=== PATIENT | male | born 1960 | race Caucasian/White ===

== ENCOUNTER 2021-04-12 10:40 | Inpatient (IN) | payer SELFPAY ==
[~2021-04-12] VITALS: Ht 180.3 cm; Wt 81.4 kg
[~2021-04-12 10:40] MED LIST: APIX5TAB PO; ASPI-1238 PO; ATOR20TA66 PO; CLOP75TA69 PO; EMPA10TA PO; FURO20TA4 PO; IBUP-1779 PO; INSU100V SQ; LISI10TA25 PO; METF-397 PO; METO-333 PO; MOM10U PO; MOME13HF2 IH; MULT-1073 PO; OXYC1TAB16 PO; PANT40TA52 PO; POLY17PO6 PO; SENN-36 PO; SITA50TA PO
[2021-04-12] MEDS ORDERED: MELATONIN 3 MG TABLET PO PRN (10:45)
[2021-04-12] MEDS ORDERED: LACTULOSE SYRUP 10GM/15ML (ENULOSE) 30ML UDC PO PRN (10:45)
[2021-04-12] MEDS ORDERED: FLEET ENEMA ADULT 1 EA BTL PR PRN (10:45)
[2021-04-12] MEDS ORDERED: ONDANSETRON 4 MG (ZOFRAN) ORAL DISSOLVE TAB PO PRN (10:45)
[2021-04-12] MEDS ORDERED: ALPRAZolam 0.25 MG (XANAX) TAB PO PRN (10:45)
[2021-04-12] MEDS ORDERED: ACETAMINOPHEN 325 MG TABLET PO PRN (10:45)
[2021-04-12] MEDS ORDERED: CALCIUM CARBONATE 500 MG (TUMS) TAB.CHEW PO PRN (10:45)
[2021-04-12] MEDS ORDERED: diphenhydrAMINE 25 MG TAB (BENADRYL) PO PRN (10:45)
[2021-04-12] MEDS ORDERED: guaiFENesin/CODEINE (ROBITUSSIN AC) 10ML UDC PO PRN (10:45)
[2021-04-12] MEDS ORDERED: BISACODYL 10 MG SUPP (DULCOLAX) PR PRN (10:45)
[2021-04-12] MEDS ORDERED: LOPERAMIDE 2 MG (IMODIUM) TABLET PO PRN (10:45)
[2021-04-12] MEDS ORDERED: DOCUSATE SODIUM 100 MG (COLACE) CAP PO PRN (10:45)
--- NOTE | 2021-04-12 11:27 | Occupational Therapy Eval ---
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 Pt transferred to ARU 04/12/21 for continued medication management and skilled therapy. Social History Home: Single Level Current Living Status: Other Family (mother) Steps Into Home: 4 ADL-Prior Level of Function SCALE: Activities may be completed with or without assistive devices. 5-Hpomfvwwlr-mgiukci completes the activity by him/herself with no assistance from a helper. 5-Set-up or Clean-up Assistance-helper sets up or cleans up; patient completes activity. [place] assists only prior to or following the activity. 4-Supervision or Touching Assistance-helper provides verbal cues and/or touching/steadying and/or contact guard assistance as patient completes activity. Assistance may be provided throughout the activity or intermittently. 3-Partial/Moderate Assistance-helper does LESS THAN HALF the effort. [place] lifts, holds or supports trunk or limbs, but provides less than half the effort. 2-Substantial/Maximal Assistance-helper does MORE THAN HALF the effort. [place] lifts or holds trunk or limbs and provides more than half the effort. 3-Vrddzlnwq-dwzscz does ALL the effort. Patient does none of the effort to complete the activity. Or, the assistance of 2 or more helpers is required for the patient to complete the activity. If activity was not attempted, code reason: 7-Patient Refused. 9-Not Applicable-not attempted and the patient did not perform the activity before the current illness, exacerbation or injury. 10-Not Attempted due to Environmental Limitations-(lack of equipment, weather restraints, etc.). 88-Not Attempted due to Medical Conditions or Safety Concerns. ADL PLOF Comments Pt reports IND with ADLs and functional mobility, no AD/AE. Self Care: Independent Functional Cognition: Independent DME/Equipment: Tub/Shower OT Current Status Subjective Pt agreeable to OT evaluation and cotreat to follow. 8/10 pain reported in L stump Mental Status/Objective Patient Orientation: Person, Place, Time, Situation Current Hand Dominance: Right Upper Extremity ROM WFL, BUE shoulder flexion to approx 160 degrees Upper Extremity Coordination WFL Upper Extremity Sensation WFL, pt denies tingling/numbness at this time. Upper Extremity Strength WFL, grossly 5/5 ADL-Treatment Eating (QC): 6 (Per pt report) Oral Hygiene (QC): 7 Shower/Bathe Self (QC): 7 Upper Body Dressing (QC): 7 Lower Body Dressing (QC): 7 On/Off Footwear (QC): 1 (Total assist donning R gripper sock.) Toileting Hygiene (QC): 3 (Min A with hygiene for thoroughness.) Other Treatments OT evaluation complete. OT/PT cotreat due to skill of 2 clinicians required which a rehab nursing tech could not perform in order to coordinate UE/LEs, decrease fall risk, and due to pt's limitations in pain, activity tolerance, mobility/transfers, and balance. OT focused on UE placement, ADLs, and cues for sequencing and safety, PT focused on LE placement, gross overall movement, mobility/transfers. Pt completed functional mobility using FWW (w/c follow), bed mobility and w/c mobility around ARU common area, please refer to PT evaluation for QC scores associated with mobility/transfers. Pt requests to use bathroom, propelled w/c into bathroom, SPT to toilet using GBS. Pt completed toileting, then transferred back to w/c. Nurse present due to bleeding from stump, and to assess skin on buttocks. LIZARRAGA present to take over tx, all needs met. Education OT Patient Education: Correct positioning, Energy conservation, Exercise program, Modified ADL techniques, Progress toward Goal/Update tx plan, Purpose of tx/functional activities, Rehab process, Safety issues, Transfer techniques Teaching Recipient: Patient Teaching Methods: Discussion Response to Teaching: Verbalize Understanding OT Short Term Goals Short Term Goals Time Frame: Apr 25, 2021 Toileting hygiene: 4 Shower/bathe self: 5 Upper body dressin Lower body dressin OT Group Home Goals Group Home Goals Time Frame: May 04, 2021 Eating (QC): 6 Oral Hygiene (QC): 6 Toileting Hygiene (QC): 6 Shower/Bathe Self (QC): 6 Upper Body Dressing (QC): 6 Lower Body Dressing (QC): 6 On/Off Footwear (QC): 6 Additional Goals: 1-Demonstrate ADL Tasks, 2-Verbalize Understanding, 3- ImproveStrength/Deniz 1=Demonstrate adherence to instructed precautions during ADL tasks. 2=Patient will verbalize/demonstrate understanding of assistive devices/modifications for ADL. 3=Patient will improve strength/tolerance for activity to enable patient to perform ADL's. OT Education/Plan Problem List/Assessment Assessment: Decreased Activ Tolerance, Decreased UE Strength, Impaired Funct Balance, Impaired I ADL's, Impaired Self-Care Skills Discharge Recommendations Plan/Recommendations: Continue POC Equpiment Recommendations-D/C: Extended Bath Bench Treatment Plan/Plan of Care Patient would benefit from OT for education, treatment and training to promote independence in ADL's, mobility, safety and/or upper extremity function for ADL's. Plan of Care: ADL Retraining, Functional Mobility, Group Exercise/Act as Ind, UE Funct Exercise/Act Treatment Duration: May 04, 2021 Frequency: At least 5 of 7 days/Wk (IRF) Estimated Hrs Per Day: 1.5 hours per day Agreement: Yes Rehab Potential: Good Time/GCodes Start Time: 10:50 Stop Time: 11:15 Total Time Billed (hr/min): 25 Billed Treatment Time OT eval x10', cotreat x15' 1, EVM (10'), ADL (15') JOSH NEVAREZ OT Apr 12, 2021 11:27
--- NOTE | 2021-04-12 11:45 | Physical Therapy Evaluation ---
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 0-Ngkngiveeu-jufvgbg completes the activity by him/herself with no assistance from a helper. 5-Set-up or Clean-up Assistance-helper sets up or cleans up; patient completes activity. [place] assists only prior to or following the activity. 4-Supervision or Touching Assistance-helper provides verbal cues and/or touching/steadying and/or contact guard assistance as patient completes activity. Assistance may be provided throughout the activity or intermittently. 3-Partial/Moderate Assistance-helper does LESS THAN HALF the effort. [place] lifts, holds or supports trunk or limbs, but provides less than half the effort. 2-Substantial/Maximal Assistance-helper does MORE THAN HALF the effort. [place] lifts or holds trunk or limbs and provides more than half the effort. 0-Arubpgljj-bxylou does ALL the effort. Patient does none of the effort to complete the activity. Or, the assistance of 2 or more helpers is required for the patient to complete the activity. If activity was not attempted, code reason: 7-Patient Refused. 9-Not Applicable-not attempted and the patient did not perform the activity before the current illness, exacerbation or injury. 10-Not Attempted due to Environmental Limitations-(lack of equipment, weather restraints, etc.). 88-Not Attempted due to Medical Conditions or Safety Concerns. Bed Mobility: 6 Transfers (B,C,W/C): 6 Gait: 6 Stairs: 6 Indoor Mobility (Ambulation): Independent Stairs: Independent PT Evaluation-Current Subjective Patient in WC pre tx, agrees to PT, has 8/10 pain in left residual limb. Will be co-treating with OT for part of tx due to poor patient mobility, strength, endurance, severe pain with activity, coordinate UE and LE with activity, safety and reduce risk of falls. Pt/Family Goals to be independent at home Objective Patient Orientation: Person, Place, Situation ROM/Strength ROM Lower Extremities WNL Strength Lower Extremities RLE (hip flexion 3/5, knee flexion 4/5, knee extension 4/5, dorsiflexion 4-/5) Integumentary/Posture Integumentary Patient has some bleeding from his residual limb and some sores on his bottom, nurse notified and she looked at it. Sensory Vision: Wears Glasses Hearing: Functional Hand Dominance: Right Sensation Right Lower Extremit: Intact Sensation Left Lower Extremity: Intact Transfers Roll Left & Right (QC): 6 Sit to Lying (QC): 4 Lying to Sitting/Side of Bed(Q: 4 Sit to Stand (QC): 3 Chair/Vqx-ea-Ylfvf Xfer(QC): 4 Toilet Transfer (QC): 4 Car Transfer (QC): 4 Patient performs rolling with independence, supine <-> sit SBA, sit <-> stand min assist, transfers CGA, car transfer CGA. Patient needs occasional cues for hand placement and safety. Gait Does the Patient Walk?: Yes Mode of Locomotion: Walk Anticipated Mode of Locomotion: Walk Walk 10 feet (QC): 4 Walk 50 ft with 2 Turns(QC): 88 Walk 150 ft (QC): 88 Walking 10ft/uneven surface-QC: 88 Distance: 10' Gait Assistive Device: FWW Comments/Gait Description Patient can ambulate 10' with CGA using a rolling walker. He doesn't have much foot clearance and is fairly unsteady so walking over an uneven surface and stairs were not safe to perform at this time. Wheelchair Training Does the Pt Use a Wheelchair?: Yes Distance: 150' Wheel 50 ft with 2 turns (QC): 4 Wheel 150 ft (QC): 4 Type of Wheelchair: Manual Stairs 1 Step (curb) (QC): 88 4 Steps (QC): 88 12 Steps (QC): 88 Balance Sitting Static: Normal Sitting Dynamic: Normal Standing Static: Fair Standing Dynamic: Poor Picking up an Object (QC): 4 Treatment PT performed bed mobility and transfers, ambulation, WC mobility training, standing and positioning and safety during shower. OT performed showering, dressing, ADL's, UE positioning and safety during activity. Assessment/Needs Patient in bed post tx, finishing up with OT. Patient has impaired mobility, strength, endurance. He is CGA for transfers but needs a little assist to stand. 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 Time Frame: May 03, 2021 Roll Left & Right (QC): 6 Sit to Lying (QC): 6 Lying-Sitting on Side/Bed(QC): 6 Sit to Stand (QC): 5 Chair/Bcb-bh-[place] Xfer(QC): 5 Toilet Transfer (QC): 5 Car Transfer (QC): 5 Does the Patient Walk: Yes Walk 10 feet (QC): 5 Walk 50ft with 2 Turns (QC): 5 Walk 150 ft (QC): 88 Walking 10ft on Uneven Surface: 4 1 Step (curb) (QC): 4 4 Steps (QC): 4 12 Steps (QC): 88 Picking up an Object (QC): 5 Wheel 50 feet with 2 turns (QC: 6 Wheel 150 feet: 6 PT Plan Problem List Problem List: Activity Tolerance, Functional Strength, Safety, Balance, Gait, Transfer, Bed Mobility, ROM Treatment/Plan Treatment Plan: Continue Plan of Care Treatment Plan: Bed Mobility, Education, Functional Activity Deniz, Functional Strength, Group Therapy, Gait, Safety, Therapeutic Exercise, Transfers Treatment Duration: May 03, 2021 Frequency: At least 5 of 7 days/Wk (IRF) Estimated Hrs Per Day: 1.5 hours per day Patient and/or Family Agrees t: Yes Safety Risks/Education Patient Education: Gait Training, Transfer Techniques, Correct Positioning, W/C Management, Safety Issues Teaching Recipient: Patient Teaching Methods: Demonstration, Discussion Response to Teaching: Reinforcement Needed Discharge Recommendations Plan Patient will perform bed mobility and transfer training, balance and endurance training, functional strengthening, stair training, gait training, and educ ation, to improve functional mobility and independence at home. Therapy Discharge Recommendati: Scheduled Assistance, Home & Family, Post Acute PT Time/GCodes Time In: 1040 Time Out: 1150 Total Billed Treatment Time: 60 Total Billed Treatment 1 visit EVM 10' FA 50' PT eval from [id number], OT eval from [id number], co-treat from [id number] ROSEMARY CABA PT Apr 12, 2021 11:45
--- NOTE | 2021-04-12 12:21 | PM&R Progress Note ---
Subjective HPI/CC On Admission Date Seen by Provider: Apr 12, 2021 Objective Exam Vital Signs Vital Signs Date Time Temp Pulse Resp B/P (MAP) Pulse Ox O2 Delivery O2 Flow Rate FiO2 04/12/21 15:45 Room Air Capillary Refill : Results/Procedures Lab Patient resulted labs reviewed. FIM Transfers Therapy Code Descriptions/Definitions Functional [place] Measure: 0=Not Assessed/NA 4=Minimal Assistance 1=Total Assistance 5=Supervision or Setup 2=Maximal Assistance 6=Modified [place] 3=Moderate Assistance 7=Complete IndependenceSCALE: Activities may be completed with or without assistive devices. 0-Tcljsmrxgx-vggrbla completes the activity by him/herself with no assistance from a helper. 5-Set-up or Clean-up Assistance-helper sets up or cleans up; patient completes activity. [place] assists only prior to or following the activity. 4-Supervision or Touching Assistance-helper provides verbal cues and/or touching/steadying and/or contact guard assistance as patient completes activity. Assistance may be provided throughout the activity or intermittently. 3-Partial/Moderate Assistance-helper does LESS THAN HALF the effort. [place] lifts, holds or supports trunk or limbs, but provides less than half the effort. 2-Substantial/Maximal Assistance-helper does MORE THAN HALF the effort. [place] lifts or holds trunk or limbs and provides more than half the effort. 2-Yzxhdkpca-pqwsey does ALL the effort. Patient does none of the effort to complete the activity. Or, the assistance of 2 or more helpers is required for the patient to complete the activity. If activity was not attempted, code reason: 7-Patient Refused. 9-Not Applicable-not attempted and the patient did not perform the activity before the current illness, exacerbation or injury. 10-Not Attempted due to Environmental Limitations-(lack of equipment, weather restraints, etc.). 88-Not Attempted due to Medical Conditions or Safety Concerns. Roll Left to Right (QC): 6 Sit to Lying (QC): 4 Sit to Stand (QC): 3 Chair/Kre-ez-Fniqm Xfer(QC): 4 Car Transfer (QC): 4 Gait Training Does the Patient Walk?: Yes Walk 10 feet (QC): 4 Walk 50 ft with 2 Turns(QC): 88 Walk 150 ft (QC): 88 Walking 10ft/uneven surface-QC: 88 Gait Assistive Device: FWW Wheelchair Training Does the Pt Use a Wheelchair?: Yes Distance: 150' Wheel 50 ft with 2 turns (QC): 4 Wheel 150 ft (QC): 4 Type of Wheelchair: Manual Stair Training 1 Step (curb) (QC): 88 4 Steps (QC): 88 12 Steps (QC): 88 Balance Picking up an Object (QC): 4 ADL-Treatment Eating (QC): 6 (Per pt report) Oral Hygiene (QC): 7 Shower/Bathe Self (QC): 7 Upper Body Dressing (QC): 7 Lower Body Dressing (QC): 7 On/Off Footwear (QC): 1 (Total assist donning R gripper sock.) Toileting Hygiene (QC): 3 (Min A with hygiene for thoroughness.) CHRISTOPHE HERNANDEZ DO Apr 12, 2021 12:21
[2021-04-12] MEDS ORDERED: polyethylene glycoL POWDER 17 GM (MIRALAX) PACK PO PRN (12:30)
--- NOTE | 2021-04-12 13:10 | Occupational Ther Daily Note ---
OT Current Status-Daily Note Subjective Pt alert, sitting in w/c. Took over care from OTR/L. No c/o pain. Agrees to therapy. Mental Status/Objective Patient Orientation: Person, Place, Time, Situation Attachments: IV ADL-Treatment 1st session ([id number]): Co-treat with PT ([id number]), skills of 2 clinicians required for skilled instruction to decrease fall risk and increase safety during functional tasks. PT focusing on transfers while OT focusing on ADLs. Pt agrees to shower. Pt is min A to CGA for all transfers. Sitting on shower bench, pt able to complete shower using grabbars and hand held shower with min A, only assist given was to cleanse buttocks while leaning toward R side on shower bench. Pt demonstrated ability to don/doff upper body clothing by self after set up. Pt able to doff L sock by self, assist to don L sock. Pt able to complete oral care independently while sitting. Pt then transferred to w/c from shower then to bed with CGA. Therapy Code Descriptions/Definitions Functional [place] Measure: 0=Not Assessed/NA 4=Minimal Assistance 1=Total Assistance 5=Supervision or Setup 2=Maximal Assistance 6=Modified [place] 3=Moderate Assistance 7=Complete IndependenceSCALE: Activities may be completed with or without assistive devices. 2-Oamipshyee-jqvtjii completes the activity by him/herself with no assistance from a helper. 5-Set-up or Clean-up Assistance-helper sets up or cleans up; patient completes activity. [place] assists only prior to or following the activity. 4-Supervision or Touching Assistance-helper provides verbal cues and/or touching/steadying and/or contact guard assistance as patient completes activity. Assistance may be provided throughout the activity or intermittently. 3-Partial/Moderate Assistance-helper does LESS THAN HALF the effort. [place] li fts, holds or supports trunk or limbs, but provides less than half the effort. 2-Substantial/Maximal Assistance-helper does MORE THAN HALF the effort. [place] lifts or holds trunk or limbs and provides more than half the effort. 0-Hmfbwacae-pupkst does ALL the effort. Patient does none of the effort to complete the activity. Or, the assistance of 2 or more helpers is required for the patient to complete the activity. If activity was not attempted, code reason: 7-Patient Refused. 9-Not Applicable-not attempted and the patient did not perform the activity before the current illness, exacerbation or injury. 10-Not Attempted due to Environmental Limitations-(lack of equipment, weather restraints, etc.). 88-Not Attempted due to Medical Conditions or Safety Concerns. Eating (QC): 6 Oral Hygiene (QC): 6 Bathing Location: L Arm, R Arm, L Lower Leg (including foot), R Lower Leg (including foot) (AKA), Chest, Abdomen, Perineal Area Shower/Bathe Self (QC): 3 Upper Body Dressing (QC): 5 On/Off Footwear: 3 (mod A) Other Treatment 1st session([id number]): Pt given medium resistance theraband and HEP for use in room to increase B UE strength. Skilled instruction given for correct technique. 3 B UE exercises completed 1 set 10 reps due to pt's increased fatigue. After session, pt lying in bed with call light/phone in reach. All needs met in room. 2nd session([id number]): Pt independent with eating. Pt given education on donning sock with sock aide. Pt able to demonstrate understanding of task though will need further attempts to become proficient. Assist given to don MARGARETTE hose to decrease edema in L foot. Pt then requested to transfer from bed to recliner. Waffle cushion placed in recliner due to wound on buttocks, nrsg aware. Pt able to complete transfer with min A. After session, pt sitting in recliner with call light/phone in reach. All needs met in room. Education OT Patient Education: Exercise program, Modified ADL techniques, Use of adapted equipment Teaching Recipient: Patient Teaching Methods: Demonstration, Discussion Response to Teaching: Verbalize Understanding, Return Demonstration, Reinforcement Needed OT Short Term Goals Short Term Goals Time Frame: Apr 25, 2021 Toileting hygiene: 4 Shower/bathe self: 5 Upper body dressin Lower body dressin OT Physical Medicine Physician Goals Physical Medicine Physician Goals Time Frame: May 04, 2021 Eating (QC): 6 Oral Hygiene (QC): 6 Toileting Hygiene (QC): 6 Shower/Bathe Self (QC): 6 Upper Body Dressing (QC): 6 Lower Body Dressing (QC): 6 On/Off Footwear (QC): 6 Additional Goals: 1-Demonstrate ADL Tasks, 2-Verbalize Understanding, 3- ImproveStrength/Deniz 1=Demonstrate adherence to instructed precautions during ADL tasks. 2=Patient will verbalize/demonstrate understanding of assistive devices/modifications for ADL. 3=Patient will improve strength/tolerance for activity to enable patient to perform ADL's. OT Education/Plan Problem List/Assessment Assessment: Decreased Activ Tolerance, Decreased UE Strength, Impaired Self- Care Skills Discharge Recommendations Plan/Recommendations: Continue POC Treatment Plan/Plan of Care Patient would benefit from OT for education, treatment and training to promote independence in ADL's, mobility, safety and/or upper extremity function for ADL's. Plan of Care: ADL Retraining, Functional Mobility, Group Exercise/Act as Ind, UE Funct Exercise/Act Treatment Duration: May 04, 2021 Frequency: At least 5 of 7 days/Wk (IRF) Estimated Hrs Per Day: 1.5 hours per day Agreement: Yes Rehab Potential: Fair Time/GCodes Start Time: 11:15 (1315) Stop Time: 12:05 (1350) Total Time Billed (hr/min): 110 Billed Treatment Time 1 visit([id number]) FA (15 min) ADL 2 (35 min) co-treat with PT [id number], individual [id number] 1 visit([id number]) FA 2 (35 min) FLORENCE CHIRINOS Apr 12, 2021 13:10
[2021-04-12] MEDS ORDERED: MILK OF MAGNESIA 400 MG/5 ML 30 ML UDC PO PRN (13:15)
--- NOTE | 2021-04-12 13:31 | ST Cognitive Linguistic Eval ---
Speech Evaluation-General Medical Diagnosis s/p L AKA Onset Date: Apr 06, 2021 Therapy Diagnosis Therapy Diagnosis: Cognitive-communication Referral Referring Physician: Dr. Jeronimo Medical History Pertinent Medical History: CAD, DM, HTN, PVD Reviewed History: Yes Social History Current Living Status: Other Family (mother) Speech PLF-Current Status Prior Level of Function Patient lives with his mother in [place] where he was independent until this amputation. Subjective Patient was pleasant and cooperative with the evaluation process. Language Eval: Auditory Comprehends Simple Yes/No Ques: Functional Indent/Objects Multiple Gutierrez: Functional Ident/Pics in Multiple Gutierrez: Functional Follows 1-Step Commands: Functional Follows Complex Directions: Functional Follows General Conversations: Functional Language Eval: Verbal Language Completes Spontaneous Greeting: Functional Produces Auto, Serial Info: Functional Imitates Simple Words/Phrases: Functional Word Finding: Functional Requests Basic Needs: Functional States Basic Personal Info: Functional Expresses Complex Ideas: Functional Objective Cognitive Domain Attention: WNL Memory: WNL Problem Solving: Functional Executive Functions: WNL Visuospatial Skills: WNL Composite Severity Rating: WNL Clock Drawing Severity Rating: WNL Objective Formal/Standardized Tests [facility] Mental Status ([facility]) Results 29/30, within normal range of function Oral Motor/Speech Production Within Normal Limits Impression Patient is a pleasant 60 y/o male who was admitted to the ARU s/p AKA of the left leg. The patient was given the SLUMS at bedside with a score of 29/30 obtained. This score is within the normal range of function and does not indicate the need for further ST services at this time. Speech Patient Assess Expression of Ideas/Wants: Expression (4) Understanding Verbal Content: Understands (4) Brief Interview-Mental Status: Yes Repetition of Three Words: Three (3) Temporal Orientation: Year: Correct (3) Temporal Orientation: Month: Accurate within 5 days(2) Temporal Orientation: Day: Correct (1) Recall : Wear to say "Sock": Yes, no cue required (2) Recall : Color: Yes, no cue required (2) Recall : Bed: Yes, no cue required (2) Memory/Recall Ability: Current season, Location of own room, That he or she is in a hsp/hsp unit Speech-Plan Patient/Family Goals Patient/Family Goals: Patient plans on returning to his home where he lives with his mother. Treatment Plan Speech Therapy Treatment Plan: Discontinue ST Treatment Duration: Apr 12, 2021 Frequency: 1 time per week Estimated Hrs Per Day: .25 hour per day Rehab Potential: Fair Barriers to Learning: No cognitive deficits noted Pt/Family Agrees to Plan: Yes Safety Risks/Education Teaching Recipient: Patient Teaching Methods: Discussion Response to Teaching: Verbalize Understanding Education Topics Provided: Safety within his room, communication of wants/needs Time Speech Therapy Time In: 13:00 Speech Therapy Time Out: 13:15 Total Billed Time: 15 Billed Treatment Time 1, MUNA LIZARRAGA [address] ST Apr 12, 2021 13:31
[2021-04-12] MEDS: oxyCODONE/APAP 7.5-325 MG (PERCOCET 7.5) TABLET PO PRN ×3 (13:33→22:14)
[2021-04-12] MEDS ORDERED: FLU QUADRIvalent (3YOA+) 60 mcg/0.5 ml 2021-22(AFLURIA) IM ONE (16:00)
[2021-04-12] MEDS ORDERED: CATHETER FLUSH 10 ML SYR IV PRN (17:30)
[2021-04-12] MEDS: FUROSEMIDE 20 MG (LASIX) TAB PO SCH (18:09)
--- NOTE | 2021-04-12 18:18 | CONSULTATION REPORT ---
DATE OF SERVICE: 04/12/2021 ADMITTING PHYSICIAN: Dr. Jeronimo. HISTORY OF PRESENT ILLNESS: The patient is a 60-year-old male who is from [place], [place] and was eventually seen by cardiology for critical limb ischemia of the left lower extremity. He was initially seen for significant lower extremity arterial insufficiency and significant claudication and underwent ultrasonography, which showed significant lower extremity stenosis. 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 Approximately one week later, he states that he then underwent formal closure of the wound. He was recently sent to [facility] to be closer to home. He does have number of medical problems including diabetes as well as a previous history of smoking for greater than 20 pack years and also has a known history of coronary artery disease. Upon examination of the left esedp-bdd-ydnw amputation stump, the wound was clean, dry and intact with mild serous drainage, no redness, erythema as well as no purulent drainage. PAST MEDICAL HISTORY: Diabetes, hypertension, hypercholesterolemia, coronary artery disease, peripheral vascular disease. PAST SURGICAL HISTORY: Left fugyt-wuv-jfux amputation. ALLERGIES: NO KNOWN DRUG ALLERGIES. MEDICATIONS: Furosemide 20 mg daily, lisinopril 10 mg daily, metformin 500 mg b.i.d. SOCIAL HISTORY: Previous smoke, greater than 20 pack years, quit several years ago. Negative alcohol. FAMILY HISTORY: Noncontributory. VITAL SIGNS: Stable, afebrile. REVIEW OF SYSTEMS: This is a well-nourished male currently in no acute distress. He is not experiencing any shortness of breath or difficulty breathing. No chest pain, palpitations, diaphoresis. No nausea, vomiting, no diarrhea or constipation. No fever, chills, no recent inadvertent weight loss. All other review of systems negative. PHYSICAL EXAMINATION: CHEST: Few scattered rales bilaterally. HEART: Regular, no murmurs. EXTREMITIES: Right lower extremity neuropathy as well as chronic arterial insufficiency, changes of the skin distally. The left jdahh-svt-onig amputation stump is intact with a mild amount of serous drainage. There is no redness or erythema as well as no purulent drainage to indicate any abscess or infection. HEENT: No scleral icterus. No cervical lymphadenopathy. ABDOMEN: Soft, nontender, nondistended. SKIN: Warm, dry. ASSESSMENT AND PLAN: A 60-year-old male status post left extremity guillotine amputation followed by formal left qeobx-rtq-mpck amputation due to significant peripheral vascular disease and diabetes. At this time, the wound looks intact with only serous drainage and no redness or erythema as well as no fluctuance to indicate any abscess. RECOMMENDATIONS: To proceed with oral antibiotics as well as to keep the area clean and dry with gauze dressing followed by Caleb on a daily basis as well as p.r.n. He may also do transfers as well as partial weightbearing on the left stump. Job ID: [id number] DocumentID: [id number] Dictated Date: 04/12/2021 14:31:29 Currency Exchange Specialist Date: 04/12/2021 14:52:00 Dictated By: SIMONA TRENT MD
[2021-04-12] MEDS: polyethylene glycoL POWDER 17 GM (MIRALAX) PACK PO SCH (19:24)
[2021-04-12] MEDS: SENNOSIDES 8.6 MG (SENOKOT) TAB PO SCH (19:25)
[2021-04-12] MEDS: CEPHALEXIN 250 MG (KEFLEX) CAP PO SCH (20:19)
[2021-04-12] MEDS: CATHETER FLUSH 10 ML SYR IV SCH (20:20)
[2021-04-12] MEDS: APIXABAN 5 MG (ELIQUIS) TABLET PO SCH (20:20)
[2021-04-12] MEDS: metFORMIN 500 MG (GLUCOPHAGE) TAB PO SCH (20:20)
--- NOTE | 2021-04-12 20:26 | PM&R Post Admission Assessment ---
PM&R Date of Visit: Apr 12, 2021 Time of Visit: 11:30 Past Mszuexa-Qdvurw-Dujrsy Hx Patient Social History Smoking Status: Former Smoker Prior Level of Function Bed Mobility: 6 Transfers: 6 Gait: 6 Stairs: 6 Indoor Mobility (Ambulation): Independent Stairs: Independent Self Care: Independent Functional Cognition: Independent Current Level of Fuctioning Roll Left to Right: 6 Sit to Lyin Lying to Sitting/Side of Bed: 4 Sit to Stand: 3 Chair/Xew-tt-Ynqxy Xfer: 4 Car Transfer: 4 Does the Patient Walk: Yes Mode of Locomotion: Walk Anticipated Mode of Locomotion: Walk Walk 10 feet: 4 Walk 50 ft with 2 Turns: 88 Walk 150 ft: 88 Walking 10ft on uneven surface: 88 Gait Assistive Device: FWW Does the Pt Use a Wheelchair: Yes Wheelchair Distance: 150' Wheel 50 ft with 2 turns: 4 Wheel 150 ft: 4 Type of Wheelchair: Manual 1 Step (curb): 88 4 Steps: 88 12 Steps: 88 Picking up an Object: 4 Eatin Oral Hygiene: 6 Shower/Bathe Self: 3 Upper Body Dressin Lower Body Dressin On/Off Footwear: 3 (mod A) Toileting Hygiene: 3 (Min A with hygiene for thoroughness.) PM&R Allergy/Meds/Data Review Allergies Coded Allergies: No Allergy Information Available (Unverified , 04/12/21) Home Medications Scheduled Apixaban (Eliquis), 5 MG PO BID, (Reported) Aspirin (Aspirin EC), 81 MG PO DAILY, (Reported) Atorvastatin Calcium (Atorvastatin Calcium), 20 MG PO HS, (Reported) Clopidogrel Bisulfate (Plavix), 75 MG PO DAILY, (Reported) Empagliflozin (Jardiance), 10 MG PO DAILY, (Reported) Furosemide (Furosemide), 20 MG PO 0600,1800, (Reported) Insulin Lispro (Humalog), UNIT SQ ACHS, (Reported) Lisinopril (Lisinopril), 10 MG PO DAILY, (Reported) Metformin HCl (Metformin HCl), 500 MG PO BID, (Reported) Metoprolol Tartrate (Metoprolol Tartrate), 25 MG PO DAILY AFTER BREAKFAST, (Reported) Mometasone/Formoterol (Dulera 100 Mcg/5 Mcg Inhaler), 1 PUFF IH BID, (Reported) Multivit,Calc,Mins/Iron/Folic (Therapeutic-M Tablet), 1 EACH PO DAILY, (Reported) Pantoprazole Sodium (Pantoprazole Sodium), 40 MG PO DAILY, (Reported) Sennosides (Senokot), 8.6 MG PO HS, (Reported) Sitagliptin Phosphate (Januvia), 50 MG PO DAILY, (Reported) Scheduled PRN Magnesium Hydroxide (Milk of Magnesia), 30 ML PO Q6H PRN for CONSTIPATION-7TH LINE, (Reported) Oxycodone HCl/Acetaminophen (Percocet 7.5-325 mg Tablet), 2 TAB PO Q4H PRN for PAIN-MODERATE, (Reported) Polyethylene Glycol 3350 (Miralax), 17 GM PO DAILY PRN for CONSTIPATION-2ND LINE, (Reported) Discontinued Medications Ibuprofen (Ibuprofen), 400 MG PO TID PRN for PAIN-MILD (1-4), (Reported) Discontinued Reason: No Longer Taking Laboratory Data Laboratory Tests 04/12/21 12:18: Glucometer 94 04/12/21 16:55: Glucometer 95 04/12/21 20:18: Glucometer 136H Physical Exam Physical Exam Vital Signs Vital Signs - First Documented 04/12/21 15:45 O2 Delivery Room Air Capillary Refill : Height, Weight, BMI Height: '" Weight: lbs. oz. kg; 27.96 BMI Method: PM&R Medical Assessment & Plan REHAB/MEDICAL ASSESSMENT AND PLAN: REHAB IMPAIRMENT GROUP: [ ] ETIOLOGIC DIAGNOSIS: [ (condition that led to rehab admission) ] The comorbidities that impact the patients function and/or functional outcome by: [ ] REHAB PLAN: The patient is being admitted to our comprehensive inpatient rehabilitation facility and can tolerate the intensity of service consisting of at least: 180 minutes of therapy a day, 5 out of 7 days a week Rehab treatment will consist of: [ (write brief focus that includes physician, rehab nursing and therapies/modalitiesIPOC will have more specifics) ] The patient/family has a good understanding of our discharge process and will benefit from an interdisciplinary inpatient rehabilitation program. The patient has potential to make improvement and is in need of at least two of the following multidisciplinary therapies including but not limited to physical, occupational, speech, and prosthetics and orthotics. Additionally the patient will need services from respiratory, nutritional services, wound care, psychology, etc. (Customize this to each patient). Given the patients complex condition and risk of further medical complications, rehabilitation services cannot be safely or effectively provided at a lower level of care such as a prison facility. BARRIERS TO DISCHARGE: [ ] ESTIMATED LOS: [ ] DISPOSITION: [ ] RELEVANT CHANGES SINCE PREADMISSION SCREENING: I have compared the patients medical and functional status at the time of the preadmission screening and there are: [no changes] [changes as follows: (if there is a discrepancy between the IGC/Etiologic stated on the PAS, address/clarify this as well) ] PROGNOSIS: [ ] REHABILITATION GOALS: 1. [ (specific to the patient) ] All the above goals were reviewed with the patient and he/she is in agreement. By signing this document, I acknowledge that I have personally performed a full physical examination on this patient within 24 hours of admission to this inpatient rehabilitation facility and have determined the patient to be able to tolerate the above course of treatment at an intensive level for a reasonable period of time. I will be completing a detailed individualized Plan of Care for this patient by day #4 of the patients stay based upon the Preadmission Screen, the Post-Admission Evaluation, and the therapy evaluations. CHRISTOPHE HERNANDEZ DO Apr 12, 2021 20:26
--- NOTE | 2021-04-12 20:26 | PM&R Post Admission Assessment ---
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 He had a cardiac cath 04/02/21. On 04/05 the BKA was revised to an 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 in the wound and he has completed antibiotics. WBC is 28.8 down and C-diff was negative. Patient has completed smoking cessation and has not had heavy alcohol use for 4 years. He previously worked in [employer] for 34 years. Past Dbwtpww-Bravzo-Brzofc Hx Past Med/Social Hx: Reviewed Nursing Past Med/Soc Hx, Reviewed and Corrections made Patient Social History Marrital Status: single Employed/Student: unemployed Alcohol Use: Occasionally Uses Smoking Status: Former Smoker Past Medical History Surgeries: Orthopedic Prior Level of Function Bed Mobility: 6 Transfers: 6 Gait: 6 Stairs: 6 Indoor Mobility (Ambulation): Independent Stairs: Independent Self Care: Independent Functional Cognition: Independent Current Level of Fuctioning Roll Left to Right: 6 Sit to Lyin Lying to Sitting/Side of Bed: 4 Sit to Stand: 3 Chair/Gtn-ak-Hckwk Xfer: 4 Car Transfer: 4 Does the Patient Walk: Yes Mode of Locomotion: Walk Anticipated Mode of Locomotion: Walk Walk 10 feet: 4 Walk 50 ft with 2 Turns: 88 Walk 150 ft: 88 Walking 10ft on uneven surface: 88 Gait Assistive Device: FWW Does the Pt Use a Wheelchair: Yes Wheelchair Distance: 150' Wheel 50 ft with 2 turns: 4 Wheel 150 ft: 4 Type of Wheelchair: Manual 1 Step (curb): 88 4 Steps: 88 12 Steps: 88 Picking up an Object: 4 Eatin Oral Hygiene: 6 Shower/Bathe Self: 3 Upper Body Dressin Lower Body Dressin On/Off Footwear: 3 (mod A) Toileting Hygiene: 3 (Min A with hygiene for thoroughness.) PM&R Allergy/Meds/Data Review Allergies Coded Allergies: No Allergy Information Available (Unverified , 04/12/21) Home Medications Scheduled Apixaban (Eliquis), 5 MG PO BID, (Reported) Aspirin (Aspirin EC), 81 MG PO DAILY, (Reported) Atorvastatin Calcium (Atorvastatin Calcium), 20 MG PO HS, (Reported) Clopidogrel Bisulfate (Plavix), 75 MG PO DAILY, (Reported) Empagliflozin (Jardiance), 10 MG PO DAILY, (Reported) Furosemide (Furosemide), 20 MG PO 0600,1800, (Reported) Insulin Lispro (Humalog), UNIT SQ ACHS, (Reported) Lisinopril (Lisinopril), 10 MG PO DAILY, (Reported) Metformin HCl (Metformin HCl), 500 MG PO BID, (Reported) Metoprolol Tartrate (Metoprolol Tartrate), 25 MG PO DAILY AFTER BREAKFAST, (Reported) Mometasone/Formoterol (Dulera 100 Mcg/5 Mcg Inhaler), 1 PUFF IH BID, (Reported) Multivit,Calc,Mins/Iron/Folic (Therapeutic-M Tablet), 1 EACH PO DAILY, (Reported) Pantoprazole Sodium (Pantoprazole Sodium), 40 MG PO DAILY, (Reported) Sennosides (Senokot), 8.6 MG PO HS, (Reported) Sitagliptin Phosphate (Januvia), 50 MG PO DAILY, (Reported) Scheduled PRN Magnesium Hydroxide (Milk of Magnesia), 30 ML PO Q6H PRN for CONSTIPATION-7TH LINE, (Reported) Oxycodone HCl/Acetaminophen (Percocet 7.5-325 mg Tablet), 2 TAB PO Q4H PRN for PAIN-MODERATE, (Reported) Polyethylene Glycol 3350 (Miralax), 17 GM PO DAILY PRN for CONSTIPATION-2ND LINE, (Reported) Discontinued Medications Ibuprofen (Ibuprofen), 400 MG PO TID PRN for PAIN-MILD (1-4), (Reported) Discontinued Reason: No Longer Taking Current Medications Current Medications Reviewed Laboratory Data Laboratory Tests 04/12/21 12:18: Glucometer 94 04/12/21 16:55: Glucometer 95 04/12/21 20:18: Glucometer 136H Review of Systems Constitutional: see HPI EENTM: no symptoms reported Respiratory: no symptoms reported Cardiovascular: no symptoms reported Gastrointestinal: no symptoms reported Genitourinary: no symptoms reported Musculoskeletal: back pain, joint pain Skin: see HPI Psychiatric/Neurological: Depressed All Other Systems Reviewed Negative Unless Noted: Yes Physical Exam Physical Exam Vital Signs Vital Signs - First Documented 04/12/21 15:45 O2 Delivery Room Air Capillary Refill : Height, Weight, BMI Height: '" Weight: lbs. oz. kg; 27.96 BMI Method: General Appearance: No Apparent Distress, WD/WN, Chronically ill Eyes: Bilateral Eye Normal Inspection, Bilateral Eye PERRL HEENT: PERRL/EOMI, Normal ENT Inspection, Pharynx Normal Neck: Full Range of Motion, Normal Inspection, Non Tender, Supple, Carotid Bruit Respiratory: Chest Non Tender, Lungs Clear, Normal Breath Sounds, No Accessory Muscle Use, No Respiratory Distress Cardiovascular: Regular Rate, Rhythm, No Edema, No Gallop, No JVD, No Murmur, Normal Peripheral Pulses Gastrointestinal: Normal Bowel Sounds, No Organomegaly, No Pulsatile Mass, Non Tender, Soft Back: Normal Inspection, No CVA Tenderness, No Vertebral Tenderness Extremity: Normal Capillary Refill, Normal Inspection, Normal Range of Motion, Non Tender, No Calf Tenderness, No Pedal Edema, Other (Left AKA) Neurologic/Psychiatric: Alert, Oriented x3, No Motor/Sensory Deficits, Normal Mood/Affect, Abnormal Gait, Motor Weakness (Generalized) Skin: Normal Color, Warm/Dry Lymphatic: No Adenopathy PM&R Medical Assessment & Plan REHAB/MEDICAL ASSESSMENT AND PLAN: REHAB IMPAIRMENT GROUP: Left AKA ETIOLOGIC DIAGNOSIS: Left AKA The comorbidities that impact the patients function and/or functional outcome by: Left AKA and decreased ability to ambulate REHAB PLAN: The patient is being admitted to our comprehensive inpatient rehabilitation facility and can tolerate the intensity of service consisting of at least: 180 minutes of therapy a day, 5 out of 7 days a week Rehab treatment will consist of: PT and OT will focus on regaining function wheelchair and increased independence in ADLs The patient/family has a good understanding of our discharge process and will be nefit from an interdisciplinary inpatient rehabilitation program. The patient has potential to make improvement and is in need of at least two of the following multidisciplinary therapies including but not limited to physical, occupational, speech, and prosthetics and orthotics. Additionally the patient will need services from respiratory, nutritional services, wound care, psychol ogy, etc. (Customize this to each patient). Given the patients complex condition and risk of further medical complications, rehabilitation services cannot be safely or effectively provided at a lower level of care such as a detention facility. BARRIERS TO DISCHARGE: Left AKA ESTIMATED LOS: 14 days DISPOSITION: Home RELEVANT CHANGES SINCE PREADMISSION SCREENING: I have compared the patients medical and functional status at the time of the preadmission screening and there are: No changes PROGNOSIS: Fair REHABILITATION GOALS: 1. PT and OT will focus on regaining function wheelchair and increased independence in ADLs All the above goals were reviewed with the patient and he/she is in agreement. By signing this document, I acknowledge that I have personally performed a full physical examination on this patient within 24 hours of admission to this inpatient rehabilitation facility and have determined the patient to be able to tolerate the above course of treatment at an intensive level for a reasonable period of time. I will be completing a detailed individualized Plan of Care for this patient by day #4 of the patients stay based upon the Preadmission Screen, the Post-Admission Evaluation, and the therapy evaluations. Admission Dx/Comorbidities: (1) Above knee amputation of left lower extremity ICD Codes: S78.112A - Complete traumatic amputation at level between left hip and knee, initial encounter Assessment/Plan Assessment and Plan Assess & Plan/Chief Complaint Assessment: 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 Previous smoker Right lower extremity wounds Leukocytosis Diabetes Hypertension Plan: Supportive care Rehab protocol Pain meds CHRISTOPHE HERNANDEZ DO Apr 12, 2021 20:26
[2021-04-12] MEDS: RT--FLUTICASONE/SALMETEROL 113-14 (AIRDUO RespiCLICK) IH SCH (20:30)
[2021-04-12] MEDS: inSUlin ASPART (NovoLOG) 1 UNIT/0.01 ML (CHARGE PER UNIT) SC SCH (20:37)
[2021-04-12] MEDS: DOCUSATE SODIUM 100 MG (COLACE) CAP PO SCH (20:37)
[2021-04-12] MEDS: SENNA W/DOCUSATE (SENOKOT S) TABLET PO SCH (20:37)
[2021-04-12 20:39] VITALS: BP 113/59
[2021-04-13] MEDS: oxyCODONE/APAP 7.5-325 MG (PERCOCET 7.5) TABLET PO PRN ×5 (02:19→20:24)
[2021-04-13 06:01] LABS: BASOPHILS # (AUTO) 0.1 10^3/uL (0.0-0.1); BASOPHILS % (AUTO) 1 % (0-10); EOSINOPHILS # (AUTO) 0.8 10^3/uL (0.0-0.3); EOSINOPHILS % (AUTO) 4 % (0-10); HEMATOCRIT 23 % (40-54); HEMOGLOBIN 7.9 g/dL (13.3-17.7); LYMPHOCYTES # (AUTO) 1.7 10^3/uL (1.0-4.0); LYMPHOCYTES % (AUTO) 9 % (12-44); MEAN CORPUSCULAR HEMOGLOBIN 31 pg (25-34); MEAN CORPUSCULAR HGB CONC 34 g/dL (32-36); MEAN CORPUSCULAR VOLUME 91 fL (80-99); MONOCYTES # (AUTO) 1.4 10^3/uL (0.0-1.0); MONOCYTES % (AUTO) 7 % (0-12); NEUTROPHILS # (AUTO) 14.2 10^3/uL (1.8-7.8); NEUTROPHILS % (AUTO) 75 % (42-75); PLATELET COUNT 741 10^3/uL (130-400)
--- NOTE | 2021-04-13 06:10 | PM&R Progress Note ---
Subjective HPI/CC On Admission Date Seen by Provider: Apr 13, 2021 Time Seen by Provider: 12:15 Subjective/Events-last exam 04/13/2021: Patient settling in White count elevated just as it was at [place] No fever Wound care managing dressing Subtle crackle left lower lobe Smoking cessation Encouraged to use incentive spirometer Iron low will start Venofer Review of Systems General: Fatigue, Malaise Musculoskeletal: leg pain Objective Exam Vital Signs Vital Signs Date Time Temp Pulse Resp B/P (MAP) Pulse Ox O2 Delivery O2 Flow Rate FiO2 04/13/21 15:26 121/72 (88) 04/13/21 09:29 108 96 Room Air 04/13/21 07:25 36.4 96 Capillary Refill : General Appearance: No Apparent Distress, WD/WN, Chronically ill HEENT: PERRL/EOMI, Normal ENT Inspection, Pharynx Normal Neck: Full Range of Motion, Normal Inspection, Non Tender, Supple, Carotid Bruit Respiratory: Chest Non Tender, Lungs Clear, Normal Breath Sounds, No Accessory Muscle Use, No Respiratory Distress Cardiovascular: Regular Rate, Rhythm, No Edema, No Gallop, No JVD, No Murmur, Normal Peripheral Pulses Gastrointestinal: Normal Bowel Sounds, No Organomegaly, No Pulsatile Mass, Non Tender, Soft Back: Normal Inspection, No CVA Tenderness, No Vertebral Tenderness Extremity: Normal Capillary Refill, Normal Inspection, Normal Range of Motion, Non Tender, No Calf Tenderness, No Pedal Edema, Other (Left AKA) Neurologic/Psychiatric: Alert, Oriented x3, No Motor/Sensory Deficits, Normal Mood/Affect, Abnormal Gait, Motor Weakness (Generalized) Skin: Normal Color, Warm/Dry Lymphatic: No Adenopathy Results/Procedures Lab Laboratory Tests 04/13/21 05:44 Patient resulted labs reviewed. FIM Transfers Therapy Code Descriptions/Definitions Functional [place] Measure: 0=Not Assessed/NA 4=Minimal Assistance 1=Total Assistance 5=Supervision or Setup 2=Maximal Assistance 6=Modified [place] 3=Moderate Assistance 7=Complete IndependenceSCALE: Activities may be completed with or without assistive devices. 7-Fsykecbfru-esvwpdb completes the activity by him/herself with no assistance from a helper. 5-Set-up or Clean-up Assistance-helper sets up or cleans up; patient completes activity. [place] assists only prior to or following the activity. 4-Supervision or Touching Assistance-helper provides verbal cues and/or touching/steadying and/or contact guard assistance as patient completes activity. Assistance may be provided throughout the activity or intermittently. 3-Partial/Moderate Assistance-helper does LESS THAN HALF the effort. [place] lifts, holds or supports trunk or limbs, but provides less than half the effort. 2-Substantial/Maximal Assistance-helper does MORE THAN HALF the effort. [place] lifts or holds trunk or limbs and provides more than half the effort. 4-Ppvodxomz-qkgeie does ALL the effort. Patient does none of the effort to complete the activity. Or, the assistance of 2 or more helpers is required for the patient to complete the activity. If activity was not attempted, code reason: 7-Patient Refused. 9-Not Applicable-not attempted and the patient did not perform the activity before the current illness, exacerbation or injury. 10-Not Attempted due to Environmental Limitations-(lack of equipment, weather restraints, etc.). 88-Not Attempted due to Medical Conditions or Safety Concerns. Roll Left to Right (QC): 6 Sit to Lying (QC): 4 Sit to Stand (QC): 3 Chair/Xob-ew-Dbpao Xfer(QC): 4 Car Transfer (QC): 4 Gait Training Does the Patient Walk?: Yes Walk 10 feet (QC): 4 Walk 50 ft with 2 Turns(QC): 88 Walk 150 ft (QC): 88 Walking 10ft/uneven surface-QC: 88 Gait Assistive Device: FWW Wheelchair Training Does the Pt Use a Wheelchair?: Yes Distance: 150' Wheel 50 ft with 2 turns (QC): 4 Wheel 150 ft (QC): 4 Type of Wheelchair: Manual Stair Training 1 Step (curb) (QC): 88 4 Steps (QC): 88 12 Steps (QC): 88 Balance Picking up an Object (QC): 4 ADL-Treatment Eating (QC): 6 Oral Hygiene (QC): 6 Bathing Location: L Arm, R Arm, L Lower Leg (including foot), R Lower Leg (including foot) (AKA), Chest, Abdomen, Perineal Area Shower/Bathe Self (QC): 3 Upper Body Dressing (QC): 5 Lower Body Dressing (QC): 7 On/Off Footwear (QC): 3 (mod A) Toileting Hygiene (QC): 3 (Min A with hygiene for thoroughness.) Assessment/Plan Assessment and Plan Assess & Plan/Chief Complaint Assessment: 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
--- NOTE | 2021-04-13 06:10 | Individualized Plan of Care ---
Individualized Plan of Care Rehab Nursing IPOC Order Admission Date Apr 12, 2021 at 10:40 Current Orders Orders Admission Order(Inpt,Obs,Sdc) (04/12/21 10:39) Vital Signs: Per Unit Policy ( 08,16,00 (04/12/21 10:39) Bipin Ware (04/12/21 10:39) Sequential Compression Device (04/12/21 10:39) Machine Operator-Inpt Rehab Con (04/12/21 10:39) Rehab Nursing Orders-Ipoc (04/12/21 10:39) Physical Therapy Rehab Orders (04/12/21 10:39) Occupational Therapy Rehab Ord (04/12/21 10:39) Speech Therapy Rehab Orders (04/12/21 10:39) Cbc With Automated Diff (04/13/21 06:00) Comprehensive Metabolic Panel (04/13/21 06:00) Precautions (Aru) (04/12/21 10:39) Weekly Weight WEEK (04/12/21 10:39) Rehab-Intensity Of Therapy (04/12/21 10:39) Initiate Admission Nursing Pro .admission (04/12/21 10:39) Alprazolam Tablet (Xanax Tablet) (04/12/21 10:45) Calcium Carbonate Chew Tablet (Antacid C (04/12/21 10:45) Diphenhydramine Tablet (Benadryl Tablet) (04/12/21 10:45) Docusate Sodium Capsule (Colace Capsule) (04/12/21 21:00) Docusate Sodium Capsule (Colace Capsule) (04/12/21 10:45) Bisacodyl Suppository (Dulcolax Supposit (04/12/21 10:45) Lactulose Oral Solution (Enulose Oral So (04/12/21 10:45) Na Phos/Na Biphos Enema (Fleet Enema [place] (04/12/21 10:45) Guaifenesin/Codeine Syrup (Robitussin Ac (04/12/21 10:45) Loperamide Tablet (Imodium Tablet) (04/12/21 10:45) Melatonin Tablet (Melatonin Tablet) (04/12/21 10:45) Polyethylene Glycol Powder Pkt (Miralax (04/12/21 21:00) Ondansetron Oral Dissolve Tab (Zofran (04/12/21 10:45) Senna S Tablet (Senokot S Tablet) (04/12/21 21:00) Acetaminophen Tablet/Caplet (Tylenol T (04/12/21 10:45) Code/Resuscitation (04/12/21 10:39) Initiate Admission Nursing Pro .admission (04/12/21 10:39) Admission Arrival Bed Request (04/12/21 10:51) Cho 60g/M 1snack (16-1999 Onesimo) (04/12/21 Lunch) Consult General Surgery (04/12/21 12:16) Apixaban Tablet (Eliquis Tablet) (04/12/21 21:00) Aspirin Enteric Coated Tablet (Ecotrin T (04/13/21 09:00) Atorvastatin Tablet (Lipitor Tablet) (04/12/21 21:00) Clopidogrel Tablet (Plavix Tablet) (04/13/21 09:00) Empagliflozin Tablet (Jardiance Tablet) (04/13/21 09:00) Furosemide Tablet (Lasix Tablet) (04/12/21 18:00) Lisinopril Tablet (Zestril Tablet) (04/13/21 09:00) Metformin Tablet (Glucophage Tablet) (04/12/21 21:00) Metoprolol Tartrate (Ir) Tab (Lopressor (04/13/21 08:00) Oxycodone/Apap 7.5/325mg Tab (Percocet (04/12/21 12:30) Pantoprazole Tablet (Protonix Tablet) (04/13/21 09:00) Polyethylene Glycol Powder Pkt (Miralax (04/12/21 12:30) Sennosides Tablet (Senokot Tablet) (04/12/21 21:00) Magnesium Hydroxide Oral Susp (Mom Oral (04/12/21 13:15) Fluticasone/Salmeterol 113-14 (Airduo Re (04/12/21 21:00) Therapeutic Multivitamin Tab (Vitamins, (04/13/21 09:00) Linagliptin Tablet (Tradjenta Tablet) (04/13/21 09:00) Cephalexin Capsule (Keflex Capsule) (04/12/21 21:00) Patient Visit (04/12/21 ) Speech Sound Lang Comp (04/12/21 ) Treat. Speech/Lang/Voice (04/12/21 ) Accucheck Achs ACHS (04/12/21 14:03) Dressing Order (Intervention) DAILY (04/13/21 09:00) Flu Quad (3yoa+) [id number] (Afluria Adolph (04/12/21 16:00) Sodium Chloride Flush (Catheter Flush Sy (04/12/21 17:30) Sodium Chloride Flush (Catheter Flush Sy (04/12/21 22:00) Mdi Treatment (04/12/21 17:37) Nursing Communication (Order) (04/12/21 18:08) Follow-Up Appointment (04/12/21 18:14) Insulin Aspart (Novolog) (Novolog (Charg (04/12/21 21:00) Manual Differential (04/13/21 05:44) Iron Test (Fe) (04/13/21 06:52) Magnesium (04/13/21 06:52) Potassium Chloride (Tablet) (Klor Con Ta (04/13/21 08:00) Patient Visit (04/12/21 ) Pt Eval Moderate Complexity (04/12/21 ) Functional Activities, Ea 15 (04/12/21 ) Patient Visit (04/13/21 ) Functional Activities, Ea 15 (04/13/21 ) Exercise Therap, Ea 15 Min (04/13/21 ) Covid-19 Vacc,Mrna(Moderna)/Pf (Moderna (04/13/21 13:30) Covid-19 Vacc,Mrna(Moderna)/Pf (Moderna (04/13/21 14:00) Iron Sucrose Injection (Venofer Injectio (04/13/21 16:00) Vitamin B 12 (04/13/21 15:48) Procalcitonin (Pct) (04/13/21 15:48) Cyanocobalamin Injection (Vitamin B-12 I (04/13/21 16:00) Rehab Nursing Orders: Ongoing Assess. of Function Status Intensity of Therapy to be met Patient to be seen: Min.3h per day/5 of 7d PT IPOC Problem List: Activity Tolerance, Functional Strength, Safety, Balance, Gait, Transfer, Bed Mobility, ROM Treatment Plan: Continue Plan of Care Bed Mobility, Education, Functional Activity Deniz, Functional Strength, Group Therapy, Gait, Safety, Therapeutic Exercise, Transfers Treatment Duration: May 03, 2021 Frequency: At least 5 of 7 days/Wk (IRF) Estimated Hrs Per Day: 1.5 hours per day OT IPOC Problems: Decreased Activ Tolerance, Decreased UE Strength, Impaired Self-Care Skills OT Treatment, Training and Edu: Yes Plan of Care: ADL Retraining, Functional Mobility, Group Exercise/Act as Ind, UE Funct Exercise/Act Treatment Duration: May 04, 2021 Frequency: At least 5 of 7 days/Wk (IRF) Estimated Hrs Per Day: 1.[address] IPOC Speech Therapy Treatment Plan: Discontinue ST Treatment Duration: Apr 12, 2021 Frequency: 1 time per week Estimated Hrs Per Day: .25 hour per day Machine Operator/Case Mgmt Machine Operator/Case Managemen: Discharge Planning Dietitian/Supervisory Forester Dietitian/Supervisory Forester to monitor nutritional status and make changes and/or recommendations as needed and work with speech pathology on dietary upgrades as the occur. Physician IPOC Medical Issues being managed closely and that require the 24 hour availability of a physician: Recent left AKA will require close monitoring especially managing acute blood loss anemia with leukocytosis crackles on lung exam Medical Issues: Bowel/Bladder Function, DVT Prophylaxis, Falls Precautions, Fluid/Electrolyte/Nutrition Balance, Infection Protection, Pain Management, Weight Bearing Precautions, Wound Care Brief Synthesis of Preadmission Screen, Post-Admission Evaluation, and Therapy Evaluations: PT and OT will focus on regaining independence in ADLs and ambulatory processes being wheelchair-bound status post left AKA Medical Prognosis: Fair Anticipated Length of Stay: 14 days CHRISTOPHE HERNANDEZ DO Apr 13, 2021 06:10
[2021-04-13 06:25] LABS: BILIRUBIN,TOTAL 0.5 MG/DL (0.1-1.0); CALCIUM 8.4 MG/DL (8.5-10.1); CREATININE SERUM 1.01 MG/DL (0.60-1.30); POTASSIUM 3.1 MMOL/L (3.6-5.0); TOTAL PROTEIN 5.7 GM/DL (6.4-8.2)
[2021-04-13 06:27] LABS: EOSINOPHILS % (MANUAL) 5 %; HYPOCHROMASIA SLIGHT; LYMPHOCYTES % (MANUAL) 10 %; MONOCYTES % (MANUAL) 3 %; NEUTROPHILS % (MANUAL) 82 %; POLYCHROMASIA SLIGHT; TARGET CELLS SLIGHT
[2021-04-13 06:28] LABS: CRENATED RBC SLIGHT; TOXIC GRANULATION/VACUOLAZATIO 2+
[2021-04-13] MEDS: inSUlin ASPART (NovoLOG) 1 UNIT/0.01 ML (CHARGE PER UNIT) SC SCH ×4 (06:33→20:42)
[2021-04-13] MEDS: RT--FLUTICASONE/SALMETEROL 113-14 (AIRDUO RespiCLICK) IH SCH ×2 (06:53→21:40)
[2021-04-13] MEDS: FUROSEMIDE 20 MG (LASIX) TAB PO SCH ×2 (06:59→16:23)
[2021-04-13] MEDS: CATHETER FLUSH 10 ML SYR IV SCH ×3 (07:00→20:23)
[2021-04-13 07:25] VITALS: BP 115/75
[2021-04-13] MEDS: meTOprolol TARTRATE 25 MG (LOPRESSOR) TABLET PO SCH ×2 (07:51→15:53)
[2021-04-13] MEDS: DOCUSATE SODIUM 100 MG (COLACE) CAP PO SCH ×2 (07:51→19:10)
[2021-04-13] MEDS: EMPAGLIFLOZIN 10 MG TABLET (JARDIANCE) PO SCH (07:52)
[2021-04-13] MEDS: metFORMIN 500 MG (GLUCOPHAGE) TAB PO SCH ×2 (07:52→20:22)
[2021-04-13] MEDS: APIXABAN 5 MG (ELIQUIS) TABLET PO SCH ×2 (07:52→20:22)
[2021-04-13] MEDS: lisINopril 10 MG (PRINIVIL) TABLET PO SCH ×2 (07:52→15:54)
[2021-04-13] MEDS: PANTOPRAZOLE 40 MG (PROTONIX) TAB PO SCH (07:52)
[2021-04-13] MEDS: ASPIRIN E.C. 81 MG (ECOTRIN) TAB PO SCH (07:52)
[2021-04-13] MEDS: MULTIVIT W/MINERALS TAB (THERAGRAN M) PO SCH (07:53)
[2021-04-13] MEDS: CEPHALEXIN 250 MG (KEFLEX) CAP PO SCH ×3 (07:53→20:22)
[2021-04-13] MEDS: CLOPIDOGREL 75 MG (PLAVIX) TABLET PO SCH (07:53)
[2021-04-13] MEDS: SENNA W/DOCUSATE (SENOKOT S) TABLET PO SCH ×2 (07:53→19:10)
[2021-04-13] MEDS: KCL 10 MEQ TAB (MICRO K) PO SCH ×2 (07:53→16:23)
--- NOTE | 2021-04-13 08:35 | Occupational Ther Daily Note ---
OT Current Status-Daily Note Subjective Pt alert, lying in bed. Pt agrees to therapy. C/o pain, rated 5/10, nrsg aware. Mental Status/Objective Patient Orientation: Person, Place, Time, Situation Attachments: IV ADL-Treatment Pt requested sponge bath. Supine to EOB independent. Pt stated that he was dizzy and needed to sit for a moment, Hmg low 7.9. CGA to SPT from EOB to w/c. Pt then propelled w/c to bathroom, transferred to toilet with min A, no clothing manipulation needed. Pt attempted to cleanse self after toileting, assist for thoroughness. Pt required assist to thread pants over feet then assist x2 to hike over hips. Max A for donning sock. Sitting at sink, pt able to complete upper body bathing by self then independent with oral care. Set up for upper body dressing. Therapy Code Descriptions/Definitions Functional [place] Measure: 0=Not Assessed/NA 4=Minimal Assistance 1=Total Assistance 5=Supervision or Setup 2=Maximal Assistance 6=Modified [place] 3=Moderate Assistance 7=Complete IndependenceSCALE: Activities may be completed with or without assistive devices. 2-Ygjavnmjir-uddvjsz completes the activity by him/herself with no assistance from a helper. 5-Set-up or Clean-up Assistance-helper sets up or cleans up; patient completes activity. [place] assists only prior to or following the activity. 4-Supervision or Touching Assistance-helper provides verbal cues and/or touching/steadying and/or contact guard assistance as patient completes activity. Assistance may be provided throughout the activity or intermittently. 3-Partial/Moderate Assistance-helper does LESS THAN HALF the effort. [place] lifts, holds or supports trunk or limbs, but provides less than half the effort. 2-Substantial/Maximal Assistance-helper does MORE THAN HALF the effort. [place] lifts or holds trunk or limbs and provides more than half the effort. 8-Bwwnpomdy-pneodl does ALL the effort. Patient does none of the effort to c omplete the activity. Or, the assistance of 2 or more helpers is required for the patient to complete the activity. If activity was not attempted, code reason: 7-Patient Refused. 9-Not Applicable-not attempted and the patient did not perform the activity before the current illness, exacerbation or injury. 10-Not Attempted due to Environmental Limitations-(lack of equipment, weather restraints, etc.). 88-Not Attempted due to Medical Conditions or Safety Concerns. Oral Hygiene (QC): 6 Upper Body Dressing (QC): 5 Lower Body Dressing (QC): 1 On/Off Footwear: 2 Toileting Hygiene (QC): 2 Toilet Transfer (QC): 3 Other Treatment Pt completed B UE exercises to strengthen for daily functional activities. Using 3# wt, pt completed arm punch, bicep curls and shldr elevation 1 set 15 reps. Pt required multiple recovery breaks throughout session. After session, pt sitting in room recliner with call light/phone in reach. All needs met in room. OT Short Term Goals Short Term Goals Time Frame: Apr 25, 2021 Toileting hygiene: 4 Shower/bathe self: 5 Upper body dressin Lower body dressin OT Window Repairer Goals Nursing Home Goals Time Frame: May 04, 2021 Eating (QC): 6 Oral Hygiene (QC): 6 Toileting Hygiene (QC): 6 Shower/Bathe Self (QC): 6 Upper Body Dressing (QC): 6 Lower Body Dressing (QC): 6 On/Off Footwear (QC): 6 Additional Goals: 1-Demonstrate ADL Tasks, 2-Verbalize Understanding, 3-ImproveStrength/Deniz 1=Demonstrate adherence to instructed precautions during ADL tasks. 2=Patient will verbalize/demonstrate understanding of assistive devices/modifications for ADL. 3=Patient will improve strength/tolerance for activity to enable patient to per form ADL's. OT Education/Plan Problem List/Assessment Assessment: Decreased Activ Tolerance, Decreased UE Strength, Impaired Funct Balance, Impaired Self-Care Skills Discharge Recommendations Plan/Recommendations: Continue POC Treatment Plan/Plan of Care Patient would benefit from OT for education, treatment and training to promote independence in ADL's, mobility, safety and/or upper extremity function for ADL's. Plan of Care: ADL Retraining, Functional Mobility, Group Exercise/Act as Ind, UE Funct Exercise/Act Treatment Duration: May 04, 2021 Frequency: At least 5 of 7 days/Wk (IRF) Estimated Hrs Per Day: 1.5 hours per day Agreement: Yes Rehab Potential: Fair Time/GCodes Start Time: 07:20 Stop Time: 08:20 Total Time Billed (hr/min): 60 Billed Treatment Time 1 visit-ADL 2 (30 min) EX 2 (30 min) FLORENCE CHIRINOS Apr 13, 2021 08:35
[2021-04-13 08:41] VITALS: BP 103/64
[2021-04-13 09:29] VITALS: BP 101/62
--- NOTE | 2021-04-13 10:10 | Physical Therapy Daily Note ---
PT Daily Note-Current Subjective Pt. agrees to light Rx with frequent rest breaks. Nursing advises that pt has had low BP reading and hgb is low as well . Pt. shares he still does not feel well and is grateful for good care. Pain Location: No Pain Reported Mental Status Patient Orientation: [place] Transfers SCALE: Activities may be completed with or without assistive devices. 1-Fpxdiytqia-cildqio completes the activity by him/herself with no assistance from a helper. 5-Set-up or Clean-up Assistance-helper sets up or cleans up; patient completes activity. [place] assists only prior to or following the activity. 4-Supervision or Touching Assistance-helper provides verbal cues and/or touching/steadying and/or contact guard assistance as patient completes activity. Assistance may be provided throughout the activity or intermittently. 3-Partial/Moderate Assistance-helper does LESS THAN HALF the effort. [place] lifts, holds or supports trunk or limbs, but provides less than half the effort. 2-Substantial/Maximal Assistance-helper does MORE THAN HALF the effort. [place] lifts or holds trunk or limbs and provides more than half the effort. 4-Spvzncxtf-wtjhev does ALL the effort. Patient does none of the effort to complete the activity. Or, the assistance of 2 or more helpers is required for the patient to complete the activity. If activity was not attempted, code reason: 7-Patient Refused. 9-Not Applicable-not attempted and the patient did not perform the activity before the current illness, exacerbation or injury. 10-Not Attempted due to Environmental Limitations-(lack of equipment, weather restraints, etc.). 88-Not Attempted due to Medical Conditions or Safety Concerns. Roll Left & Right (QC): 5 pt. rolls left and right SBA as well as pulling self up in bed with rails overhead with instruction Exercises Supine Ex: Ankle pumps (right ), Quad Set, Rolling, Glut sets, Heel Slides (right), Short Arc Quads (right), Scooting (up in bed), Straight leg raise (bilat), Hip abd/add (bilat) Supine Reps: 20 Treatments pt. required breaks between each exercise and instruction in technique as pt. is tense all over . Assessment Current Status: Fair Progress nursing advises that pt. may need blood at some point and requests that PT take it very easy and rx in bed if possible PT Short Term Goals Short Term Goals Time Frame: Apr 19, 2021 Roll Left & Right: 6 Sit to lyin Lying to sitting on side of be: 6 Sit to stand: 4 Chair/jvx-ah-lykrw transfer: 4 (SBA) Walk 10 feet: 4 Walk 50 feet with two turns: 4 PT Director Veterinary Goals [facility] Goals PT [facility] Goals Time Frame: May 03, 2021 Roll Left & Right (QC): 6 Sit to Lying (QC): 6 Lying-Sitting on Side/Bed(QC): 6 Sit to Stand (QC): 5 Chair/Ebo-cr-Objqr Xfer(QC): 5 Toilet Transfer (QC): 5 Car Transfer (QC): 5 Does the Patient Walk: Yes Walk 10 feet (QC): 5 Walk 50ft with 2 Turns (QC): 5 Walk 150 ft (QC): 88 Walking 10ft on Uneven Surface: 4 1 Step (curb) (QC): 4 4 Steps (QC): 4 12 Steps (QC): 88 Picking up an Object (QC): 5 Wheel 50 feet with 2 turns (QC: 6 Wheel 150 feet: 6 PT Plan Treatment/Plan Treatment Plan: Continue Plan of Care Treatment Plan: Bed Mobility, Education, Functional Activity Deniz, Functional Strength, Group Therapy, Gait, Safety, Therapeutic Exercise, Transfers Treatment Duration: May 03, 2021 Frequency: At least 5 of 7 days/Wk (IRF) Estimated Hrs Per Day: 1.5 hours per day Patient and/or Family Agrees t: Yes Safety Risks/Education Patient Education: Transfer Techniques, Correct Positioning, Disease Process, Safety Issues Teaching Recipient: Patient Teaching Methods: Demonstration, Discussion Response to Teaching: Verbalize Understanding, Return Demonstration, Reinforcement Needed Time/GCodes Time In: 915 Time Out: 1015 Total Billed Treatment Time: 60 Total Billed Treatment 1,FA35m,EX25m ABE KHAN STUDENT CAREER DEVELOPMENT SPECIALIST Apr 13, 2021 10:10
--- NOTE | 2021-04-13 10:15 | Progress Note ---
Subjective Date Seen by a Provider: Apr 13, 2021 Time Seen by a Provider: 08:00 Subjective/Events-last exam doing well. still very weak to transfer/ambulate. wound intact, no redn ess/erythema. Objective Exam Vital Signs Date Time Temp Pulse Resp B/P (MAP) Pulse Ox O2 Delivery O2 Flow Rate FiO2 04/13/21 09:29 108 101/62 (75) 96 Room Air 04/13/21 08:41 110 103/64 (77) 04/13/21 08:18 96 Room Air 04/13/21 07:25 36.4 96 96 115/75 (88) 96 Room Air 04/13/21 06:54 95 Room Air 04/12/21 20:39 37.2 85 20 113/59 (77) 93 Room Air 04/12/21 20:30 93 Room Air 04/12/21 20:22 93 Room Air 04/12/21 15:45 Room Air I & O 04/13/21 06:59 Intake Total 810 ml Output Total 3400 ml Balance -2590 ml Capillary Refill : General Appearance: No Apparent Distress HEENT: PERRL/EOMI Neck: Full Range of Motion Respiratory: Chest Non Tender, Lungs Clear, Normal Breath Sounds Cardiovascular: Regular Rate, Rhythm Gastrointestinal: normal bowel sounds, non tender, soft Extremity: Normal Capillary Refill, Other (left stump clean/dry, no redness/erythema) Neurologic/Psychiatric: Alert, Oriented x3 Skin: Normal Color Lymphatic: No Adenopathy Results Lab Laboratory Tests 04/12/21 12:18: Glucometer 94 04/12/21 16:55: Glucometer 95 04/12/21 20:18: Glucometer 136H 04/13/21 05:44: White Blood Count 19.0H, Red Blood Count 2.58L, Hemoglobin 7.9L, Hematocrit 23L, Mean Corpuscular Volume 91, Mean Corpuscular Hemoglobin 31, Mean Corpuscular Hemoglobin Concent 34, Red Cell Distribution Width 12.6, Platelet Count 741H, Mean Platelet Volume 10.0, Immature Granulocyte % (Auto) 5, Neutrophils (%) (Auto) 75, Lymphocytes (%) (Auto) 9L, Monocytes (%) (Auto) 7, Eosinophils (%) (Auto) 4, Basophils (%) (Auto) 1, Neutrophils # (Auto) 14.2H, Lymphocytes # (Auto) 1.7, Monocytes # (Auto) 1.4H, Eosinophils # (Auto) 0.8H, Basophils # (Auto) 0.1, Immature Granulocyte # (Auto) 0.9H, Neutrophils % (Manual) 82, Lymphocytes % (Manual) 10, Monocytes % (Manual) 3, Eosinophils % (Manual) 5, T oxic Granulation 2+, Polychromasia SLIGHT, Hypochromasia SLIGHT, Target Cells SLIGHT, Crenated Cell SLIGHT, Sodium Level 133L, Potassium Level 3.1L, Chloride Level 98, Carbon Dioxide Level 22, Anion Gap 13, Blood Urea Nitrogen 16, Creatinine 1.01, Estimat Glomerular Filtration Rate 76, BUN/Creatinine Ratio 16, Glucose Level 124H, Calcium Level 8.4L, Corrected Calcium 9.2, Magnesium Level 1.6, Total Bilirubin 0.5, Aspartate Amino Transf (AST/SGOT) 45H, Alanine Aminotransferase (ALT/SGPT) 44, Alkaline Phosphatase 59, Total Protein 5.7L, Albumin 3.0L Assessment/Plan Assessment/Plan Assess & Plan/Chief Complaint s/p left AKA. wound healing well. continue PT/OT with partial wt bearing. cont gauze followed by kerlix daily. SIMONA TRENT MD Apr 13, 2021 10:15
--- NOTE | 2021-04-13 11:22 | Occupational Ther Daily Note ---
OT Current Status-Daily Note Subjective Pt alert, lying in bed. Due to low hmg, nrsg requests pt to complete in bed tasks. Mental Status/Objective Patient Orientation: Person, Place, Time, Situation Attachments: IV ADL-Treatment Therapy Code Descriptions/Definitions Functional [place] Measure: 0=Not Assessed/NA 4=Minimal Assistance 1=Total Assistance 5=Supervision or Setup 2=Maximal Assistance 6=Modified [place] 3=Moderate Assistance 7=Complete IndependenceSCALE: Activities may be completed with or without assistive devices. 9-Sdkomdbpjp-lqwtrsl completes the activity by him/herself with no assistance from a helper. 5-Set-up or Clean-up Assistance-helper sets up or cleans up; patient completes activity. [place] assists only prior to or following the activity. 4-Supervision or Touching Assistance-helper provides verbal cues and/or touching/steadying and/or contact guard assistance as patient completes activity. Assistance may be provided throughout the activity or intermittently. 3-Partial/Moderate Assistance-helper does LESS THAN HALF the effort. [place] lifts, holds or supports trunk or limbs, but provides less than half the effort. 2-Substantial/Maximal Assistance-helper does MORE THAN HALF the effort. [place] lifts or holds trunk or limbs and provides more than half the effort. 0-Oqvuvhuoo-kaikwv does ALL the effort. Patient does none of the effort to complete the activity. Or, the assistance of 2 or more helpers is required for the patient to complete the activity. If activity was not attempted, code reason: 7-Patient Refused. 9-Not Applicable-not attempted and the patient did not perform the activity before the current illness, exacerbation or injury. 10-Not Attempted due to Environmental Limitations-(lack of equipment, weather restraints, etc.). 88-Not Attempted due to Medical Conditions or Safety Concerns. Other Treatment Pt given medium/heavy resistance therapy sponge for use in room. Skilled instruction for correct technique. Pt complete 1 set 15 reps, tip to tip pinch, gross grasp and thumb flx. PT/OT co-treat due to increased dizziness and decreased stamina. PT focusing on bed mobility, and R LE strengthening while OT focusing on bed mobility and B UE strengthening. Pt required length recovery breaks throughout session. After therapy, pt left in care of PT. All needs met in room. OT Short Term Goals Short Term Goals Time Frame: Apr 25, 2021 Toileting hygiene: 4 Shower/bathe self: 5 Upper body dressin Lower body dressin OT Gis Mapping Technician Goals Gis Mapping Technician Goals Time Frame: May 04, 2021 Eating (QC): 6 Oral Hygiene (QC): 6 Toileting Hygiene (QC): 6 Shower/Bathe Self (QC): 6 Upper Body Dressing (QC): 6 Lower Body Dressing (QC): 6 On/Off Footwear (QC): 6 Additional Goals: 1-Demonstrate ADL Tasks, 2-Verbalize Understanding, 3- ImproveStrength/Deniz 1=Demonstrate adherence to instructed precautions during ADL tasks. 2=Patient will verbalize/demonstrate understanding of assistive devices/modifications for ADL. 3=Patient will improve strength/tolerance for activity to enable patient to perform ADL's. OT Education/Plan Problem List/Assessment Assessment: Decreased Activ Tolerance, Decreased UE Strength Discharge Recommendations Plan/Recommendations: Continue POC Treatment Plan/Plan of Care Patient would benefit from OT for education, treatment and training to promote independence in ADL's, mobility, safety and/or upper extremity function for ADL's. Plan of Care: ADL Retraining, Functional Mobility, Group Exercise/Act as Ind, UE Funct Exercise/Act Treatment Duration: May 04, 2021 Frequency: At least 5 of 7 days/Wk (IRF) Estimated Hrs Per Day: 1.5 hours per day Agreement: Yes Rehab Potential: Fair Time/GCodes Start Time: 10:45 Stop Time: 11:15 Total Time Billed (hr/min): 30 Billed Treatment Time 1 visit-EX 1 (15 min) FA 1 (15 min) individual treat [id number], co-treat [id number] FLORENCE CHIRINOS Apr 13, 2021 11:22
--- NOTE | 2021-04-13 11:37 | Physical Therapy Daily Note ---
PT Daily Note-Current Subjective Pt. agreeable to Rx and explains his understanding of his medical history and work history. Pt. wants to see if he qualifies for a govt subsidized appt and home care. No pain c/o but pt does c/o fatigue . Pain Location: No Pain Reported Mental Status Patient Orientation: Normal For Age Transfers SCALE: Activities may be completed with or without assistive devices. 0-Qzregysusb-fawdcvz completes the activity by him/herself with no assistance from a helper. 5-Set-up or Clean-up Assistance-helper sets up or cleans up; patient completes activity. [place] assists only prior to or following the activity. 4-Supervision or Touching Assistance-helper provides verbal cues and/or touching/steadying and/or contact guard assistance as patient completes activity. Assistance may be provided throughout the activity or intermittently. 3-Partial/Moderate Assistance-helper does LESS THAN HALF the effort. [place] lifts, holds or supports trunk or limbs, but provides less than half the effort. 2-Substantial/Maximal Assistance-helper does MORE THAN HALF the effort. [place] lifts or holds trunk or limbs and provides more than half the effort. 1-Kormzqqdp-xjwnsa does ALL the effort. Patient does none of the effort to c omplete the activity. Or, the assistance of 2 or more helpers is required for the patient to complete the activity. If activity was not attempted, code reason: 7-Patient Refused. 9-Not Applicable-not attempted and the patient did not perform the activity before the current illness, exacerbation or injury. 10-Not Attempted due to Environmental Limitations-(lack of equipment, weather restraints, etc.). 88-Not Attempted due to Medical Conditions or Safety Concerns. Sit to Lying (QC): 5 Lying to Sitting/Side of Bed(Q: 5 Chair/Nly-vt-Duzql Xfer(QC): 3 (asst of 2) Exercises Seated Therapy Exercises: Ankle pumps, Sit to stand (3x), Long arc quads, Hip flexion, Hip abd/add Seated Reps: 15 Treatments in out bed TRFs, SPT TRF commode to bed, seated ther ex EOB, co Rx OT 15 m for TRF training and educ Assessment Current Status: Good Progress pt. gives full effort but fatigues PT Short Term Goals Short Term Goals Time Frame: Apr 19, 2021 Roll Left & Right: 6 Sit to lyin Lying to sitting on side of be: 6 Sit to stand: 4 Chair/enb-kx-kyzpc transfer: 4 (SBA) Walk 10 feet: 4 Walk 50 feet with two turns: 4 PT Skilled Nursing Goals Panel Raiser Operator Goals PT Skilled Nursing Goals Time Frame: May 03, 2021 Roll Left & Right (QC): 6 Sit to Lying (QC): 6 Lying-Sitting on Side/Bed(QC): 6 Sit to Stand (QC): 5 Chair/Wfb-co-Ercat Xfer(QC): 5 Toilet Transfer (QC): 5 Car Transfer (QC): 5 Does the Patient Walk: Yes Walk 10 feet (QC): 5 Walk 50ft with 2 Turns (QC): 5 Walk 150 ft (QC): 88 Walking 10ft on Uneven Surface: 4 1 Step (curb) (QC): 4 4 Steps (QC): 4 12 Steps (QC): 88 Picking up an Object (QC): 5 Wheel 50 feet with 2 turns (QC: 6 Wheel 150 feet: 6 PT Plan Treatment/Plan Treatment Plan: Continue Plan of Care Treatment Plan: Bed Mobility, Education, Functional Activity Deniz, Functional Strength, Group Therapy, Gait, Safety, Therapeutic Exercise, Transfers Treatment Duration: May 03, 2021 Frequency: At least 5 of 7 days/Wk (IRF) Estimated Hrs Per Day: 1.5 hours per day Patient and/or Family Agrees t: Yes Safety Risks/Education Patient Education: Transfer Techniques, Correct Positioning, Disease Process, Safety Issues Teaching Recipient: Patient Teaching Methods: Demonstration, Discussion Response to Teaching: Verbalize Understanding, Return Demonstration, Reinforcement Needed Time/GCodes Time In: 1100 Time Out: 1130 Total Billed Treatment Time: 30 Total Billed Treatment 1,FA15m,EX15m 15 co Rx OT ABE KHAN COMPRESSOR SERVICE TECHNICIAN Apr 13, 2021 11:37
[2021-04-13] MEDS: polyethylene glycoL POWDER 17 GM (MIRALAX) PACK PO SCH ×2 (12:17→19:10)
[2021-04-13] MEDS ORDERED: COVID-19 VACC,MRNA(MODERNA)/PF 50 MCG/0.25 ML BOOSTER IM ONE (13:30)
[2021-04-13] MEDS ORDERED: COVID-19 VACC,MRNA(MODERNA)/PF 100 MCG/0.5 ML VIAL IM ONE (14:00)
[2021-04-13 15:26] VITALS: BP 121/72
[2021-04-13] MEDS ORDERED: CYANOCOBALAMIN INJ 1000 MCG/ML IM NR (16:00)
[2021-04-13] MEDS: IRON SUCROSE 200 MG/10 ML (VENOFER) VIAL IV SCH (16:15)
[2021-04-13] MEDS: SENNOSIDES 8.6 MG (SENOKOT) TAB PO SCH (19:10)
[2021-04-13 20:43] VITALS: BP 103/62
[2021-04-14] MEDS: oxyCODONE/APAP 7.5-325 MG (PERCOCET 7.5) TABLET PO PRN ×5 (01:43→21:47)
--- NOTE | 2021-04-14 06:09 | Progress Note - Hospitalist ---
Subjective HPI/CC On Admission Date Seen by Provider: Apr 14, 2021 Objective Exam Vital Signs Vital Signs Date Time Temp Pulse Resp B/P (MAP) Pulse Ox O2 Delivery O2 Flow Rate FiO2 04/13/21 21:40 94 Room Air 04/13/21 20:43 37.6 78 20 103/62 (76) Capillary Refill : Results/Procedures Lab Patient resulted labs reviewed. 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
--- NOTE | 2021-04-14 06:11 | PM&R Progress Note ---
Subjective HPI/CC On Admission Date Seen by Provider: Apr 14, 2021 Time Seen by Provider: 10:15 Subjective/Events-last exam 04/14/2021: Patient doing well Denies any new issues Pain is well controlled Bowels moved today Iron infusions maintained Midline will be placed 04/13/2021: Patient settling in [place] count elevated just as it was at [place] No fever Wound care managing dressing Subtle crackle left lower lobe Smoking cessation Encouraged to use incentive spirometer Iron low will start Venofer Review of Systems General: Fatigue, Malaise Objective Exam Vital Signs Vital Signs Date Time Temp Pulse Resp B/P (MAP) Pulse Ox O2 Delivery O2 Flow Rate FiO2 04/14/21 09:42 Room Air 04/14/21 08:44 37.0 104 18 127/68 (87) 96 Capillary Refill : General Appearance: No Apparent Distress, WD/WN, Chronically ill HEENT: PERRL/EOMI, Normal ENT Inspection, Pharynx Normal Neck: Full Range of Motion, Normal Inspection, Non Tender, Supple, Carotid Bruit Respiratory: Chest Non Tender, Lungs Clear, Normal Breath Sounds, No Accessory Muscle Use, No Respiratory Distress Cardiovascular: Regular Rate, Rhythm, No Edema, No Gallop, No JVD, No Murmur, Normal Peripheral Pulses Gastrointestinal: Normal Bowel Sounds, No Organomegaly, No Pulsatile Mass, Non Tender, Soft Back: Normal Inspection, No CVA Tenderness, No Vertebral Tenderness Extremity: Normal Capillary Refill, Normal Inspection, Normal Range of Motion, Non Tender, No Calf Tenderness, No Pedal Edema, Other (Left AKA) Neurologic/Psychiatric: Alert, Oriented x3, No Motor/Sensory Deficits, Normal Mood/Affect, Abnormal Gait, Motor Weakness (Generalized) Skin: Normal Color, Warm/Dry Lymphatic: No Adenopathy Results/Procedures Lab Patient resulted labs reviewed. FIM Transfers Therapy Code Descriptions/Definitions Functional [place] Measure: 0=Not Assessed/NA 4=Minimal Assistance 1=Total Assistance 5=Supervision or Setup 2=Maximal Assistance 6=Modified [place] 3=Moderate Assistance 7=Complete IndependenceSCALE: Activities may be completed with or without assistive devices. 3-Cvpaefonwo-zlhpkva completes the activity by him/herself with no assistance from a helper. 5-Set-up or Clean-up Assistance-helper sets up or cleans up; patient completes a ctivity. [place] assists only prior to or following the activity. 4-Supervision or Touching Assistance-helper provides verbal cues and/or touching/steadying and/or contact guard assistance as patient completes activity. Assistance may be provided throughout the activity or intermittently. 3-Partial/Moderate Assistance-helper does LESS THAN HALF the effort. [place] lifts, holds or supports trunk or limbs, but provides less than half the effort. 2-Substantial/Maximal Assistance-helper does MORE THAN HALF the effort. [place] lifts or holds trunk or limbs and provides more than half the effort. 6-Qvtxvtenp-dvllio does ALL the effort. Patient does none of the effort to complete the activity. Or, the assistance of 2 or more helpers is required for the patient to complete the activity. If activity was not attempted, code reason: 7-Patient Refused. 9-Not Applicable-not attempted and the patient did not perform the activity before the current illness, exacerbation or injury. 10-Not Attempted due to Environmental Limitations-(lack of equipment, weather restraints, etc.). 88-Not Attempted due to Medical Conditions or Safety Concerns. Roll Left to Right (QC): 5 Sit to Lying (QC): 5 Sit to Stand (QC): 3 Chair/Nta-ik-Pmgin Xfer(QC): 3 (asst of 2) Car Transfer (QC): 4 Gait Training Does the Patient Walk?: Yes Walk 10 feet (QC): 4 Walk 50 ft with 2 Turns(QC): 88 Walk 150 ft (QC): 88 Walking 10ft/uneven surface-QC: 88 Gait Assistive Device: FWW Wheelchair Training Does the Pt Use a Wheelchair?: Yes Distance: 150' Wheel 50 ft with 2 turns (QC): 4 Wheel 150 ft (QC): 4 Type of Wheelchair: Manual Stair Training 1 Step (curb) (QC): 88 4 Steps (QC): 88 12 Steps (QC): 88 Balance Picking up an Object (QC): 4 ADL-Treatment Eating (QC): 6 Oral Hygiene (QC): 6 Bathing Location: L Arm, R Arm, L Lower Leg (including foot), R Lower Leg (including foot) (AKA), Chest, Abdomen, Perineal Area Shower/Bathe Self (QC): 3 Upper Body Dressing (QC): 5 Lower Body Dressing (QC): 1 On/Off Footwear (QC): 2 Toileting Hygiene (QC): 2 Toilet Transfer (QC): 3 Assessment/Plan Assessment and Plan Assess & Plan/Chief Complaint Assessment: 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
[2021-04-14] MEDS: FUROSEMIDE 20 MG (LASIX) TAB PO SCH ×2 (06:30→17:32)
[2021-04-14] MEDS: CATHETER FLUSH 10 ML SYR IV SCH ×3 (06:30→19:28)
[2021-04-14] MEDS: inSUlin ASPART (NovoLOG) 1 UNIT/0.01 ML (CHARGE PER UNIT) SC SCH ×4 (06:31→20:08)
[2021-04-14] MEDS: RT--FLUTICASONE/SALMETEROL 113-14 (AIRDUO RespiCLICK) IH SCH ×2 (08:10→20:48)
[2021-04-14] MEDS: DOCUSATE SODIUM 100 MG (COLACE) CAP PO SCH ×2 (08:25→19:26)
[2021-04-14] MEDS: polyethylene glycoL POWDER 17 GM (MIRALAX) PACK PO SCH ×2 (08:26→19:26)
[2021-04-14] MEDS: SENNA W/DOCUSATE (SENOKOT S) TABLET PO SCH ×2 (08:26→19:28)
[2021-04-14 08:44] VITALS: BP 127/68
[2021-04-14] MEDS: meTOprolol TARTRATE 25 MG (LOPRESSOR) TABLET PO SCH (08:46)
[2021-04-14] MEDS: MULTIVIT W/MINERALS TAB (THERAGRAN M) PO SCH (08:46)
[2021-04-14] MEDS: CLOPIDOGREL 75 MG (PLAVIX) TABLET PO SCH (08:46)
[2021-04-14] MEDS: KCL 10 MEQ TAB (MICRO K) PO SCH ×2 (08:46→17:33)
[2021-04-14] MEDS: PANTOPRAZOLE 40 MG (PROTONIX) TAB PO SCH (08:46)
[2021-04-14] MEDS: metFORMIN 500 MG (GLUCOPHAGE) TAB PO SCH ×2 (08:46→20:06)
[2021-04-14] MEDS: CEPHALEXIN 250 MG (KEFLEX) CAP PO SCH ×3 (08:46→20:06)
[2021-04-14] MEDS: ASPIRIN E.C. 81 MG (ECOTRIN) TAB PO SCH (08:46)
[2021-04-14] MEDS: EMPAGLIFLOZIN 10 MG TABLET (JARDIANCE) PO SCH (08:46)
[2021-04-14] MEDS: lisINopril 10 MG (PRINIVIL) TABLET PO SCH (08:46)
[2021-04-14] MEDS: APIXABAN 5 MG (ELIQUIS) TABLET PO SCH ×2 (08:46→20:06)
[2021-04-14] MEDS: SENNOSIDES 8.6 MG (SENOKOT) TAB PO SCH (19:26)
[2021-04-14 20:26] VITALS: BP 93/51
[2021-04-15 05:30] VITALS: BP 128/58
[2021-04-15] MEDS: inSUlin ASPART (NovoLOG) 1 UNIT/0.01 ML (CHARGE PER UNIT) SC SCH ×2 (05:30→11:00)
[2021-04-15] MEDS: FUROSEMIDE 20 MG (LASIX) TAB PO SCH ×2 (06:01→18:05)
--- NOTE | 2021-04-15 07:04 | PM&R Progress Note ---
Subjective HPI/CC On Admission Date Seen by Provider: Apr 15, 2021 Time Seen by Provider: 12:45 Subjective/Events-last exam 04/15/2021: Patient doing pretty well Lightheadedness noted Iron infusions given for acute blood loss anemia Checking labs tomorrow may need transfusion Stopping Accu-Cheks since they are all normal 04/14/2021: Patient doing well Denies any new issues Pain is well controlled Bowels moved today Iron infusions maintained Midline will be placed 04/13/2021: Patient settling in [place] count elevated just as it was at [place] No fever Wound care managing dressing Subtle crackle left lower lobe Smoking cessation Encouraged to use incentive spirometer Iron low will start Venofer Review of Systems General: Fatigue, Malaise Objective Exam Vital Signs Vital Signs Date Time Temp Pulse Resp B/P (MAP) Pulse Ox O2 Delivery O2 Flow Rate FiO2 04/15/21 21:20 97 Room Air 04/15/21 20:00 37.3 95 20 110/56 (74) 04/15/21 07:44 0.00 Capillary Refill : General Appearance: No Apparent Distress, WD/WN, Chronically ill HEENT: PERRL/EOMI, Normal ENT Inspection, Pharynx Normal Neck: Full Range of Motion, Normal Inspection, Non Tender, Supple, Carotid Bruit Respiratory: Chest Non Tender, Lungs Clear, Normal Breath Sounds, No Accessory Muscle Use, No Respiratory Distress Cardiovascular: Regular Rate, Rhythm, No Edema, No Gallop, No JVD, No Murmur, Normal Peripheral Pulses Gastrointestinal: Normal Bowel Sounds, No Organomegaly, No Pulsatile Mass, Non Tender, Soft Back: Normal Inspection, No CVA Tenderness, No Vertebral Tenderness Extremity: Normal Capillary Refill, Normal Inspection, Normal Range of Motion, Non Tender, No Calf Tenderness, No Pedal Edema, Other (Left AKA) Neurologic/Psychiatric: Alert, Oriented x3, No Motor/Sensory Deficits, Normal Mood/Affect, Abnormal Gait, Motor Weakness (Generalized) Skin: Normal Color, Warm/Dry Lymphatic: No Adenopathy Results/Procedures Lab Patient resulted labs reviewed. FIM Transfers Therapy Code Descriptions/Definitions Functional [place] Measure: 0=Not Assessed/NA 4=Minimal Assistance 1=Total Assistance 5=Supervision or Setup 2=Maximal Assistance 6=Modified [place] 3=Moderate Assistance 7=Complete IndependenceSCALE: Activities may be completed with or without assistive devices. 0-Infcaylwtd-klucobc completes the activity by him/herself with no assistance from a helper. 5-Set-up or Clean-up Assistance-helper sets up or cleans up; patient completes activity. [place] assists only prior to or following the activity. 4-Supervision or Touching Assistance-helper provides verbal cues and/or touching/steadying and/or contact guard assistance as patient completes activity. Assistance may be provided throughout the activity or intermittently. 3-Partial/Moderate Assistance-helper does LESS THAN HALF the effort. [place] lifts, holds or supports trunk or limbs, but provides less than half the effort. 2-Substantial/Maximal Assistance-helper does MORE THAN HALF the effort. [place] l ifts or holds trunk or limbs and provides more than half the effort. 7-Spvnykobr-nqvqio does ALL the effort. Patient does none of the effort to complete the activity. Or, the assistance of 2 or more helpers is required for the patient to complete the activity. If activity was not attempted, code reason: 7-Patient Refused. 9-Not Applicable-not attempted and the patient did not perform the activity before the current illness, exacerbation or injury. 10-Not Attempted due to Environmental Limitations-(lack of equipment, weather restraints, etc.). 88-Not Attempted due to Medical Conditions or Safety Concerns. Roll Left to Right (QC): 5 Sit to Lying (QC): 5 Sit to Stand (QC): 3 Chair/Gws-zx-Jjgzs Xfer(QC): 3 (asst of 2) Car Transfer (QC): 4 Gait Training Does the Patient Walk?: Yes Walk 10 feet (QC): 4 Walk 50 ft with 2 Turns(QC): 88 Walk 150 ft (QC): 88 Walking 10ft/uneven surface-QC: 88 Gait Assistive Device: FWW Wheelchair Training Does the Pt Use a Wheelchair?: Yes Distance: 150' Wheel 50 ft with 2 turns (QC): 4 Wheel 150 ft (QC): 4 Type of Wheelchair: Manual Stair Training 1 Step (curb) (QC): 88 4 Steps (QC): 88 12 Steps (QC): 88 Balance Picking up an Object (QC): 4 ADL-Treatment Eating (QC): 6 Oral Hygiene (QC): 6 Bathing Location: L Arm, R Arm, L Lower Leg (including foot), R Lower Leg (including foot) (AKA), Chest, Abdomen, Perineal Area Shower/Bathe Self (QC): 3 Upper Body Dressing (QC): 5 Lower Body Dressing (QC): 1 On/Off Footwear (QC): 2 Toileting Hygiene (QC): 2 Toilet Transfer (QC): 3 Assessment/Plan Assessment and Plan Assess & Plan/Chief Complaint Assessment: 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
[2021-04-15 07:19] VITALS: BP 107/63
[2021-04-15] MEDS: RT--FLUTICASONE/SALMETEROL 113-14 (AIRDUO RespiCLICK) IH SCH ×2 (07:44→21:20)
[2021-04-15] MEDS: ASPIRIN E.C. 81 MG (ECOTRIN) TAB PO SCH (07:53)
[2021-04-15] MEDS: KCL 10 MEQ TAB (MICRO K) PO SCH ×2 (07:53→18:05)
[2021-04-15] MEDS: PANTOPRAZOLE 40 MG (PROTONIX) TAB PO SCH (07:53)
[2021-04-15] MEDS: APIXABAN 5 MG (ELIQUIS) TABLET PO SCH ×2 (07:53→21:33)
[2021-04-15] MEDS: MULTIVIT W/MINERALS TAB (THERAGRAN M) PO SCH (07:53)
[2021-04-15] MEDS: EMPAGLIFLOZIN 10 MG TABLET (JARDIANCE) PO SCH (07:53)
[2021-04-15] MEDS: CLOPIDOGREL 75 MG (PLAVIX) TABLET PO SCH (07:53)
[2021-04-15] MEDS: CEPHALEXIN 250 MG (KEFLEX) CAP PO SCH ×3 (07:54→21:33)
[2021-04-15] MEDS: metFORMIN 500 MG (GLUCOPHAGE) TAB PO SCH ×2 (07:54→21:33)
[2021-04-15] MEDS: meTOprolol TARTRATE 25 MG (LOPRESSOR) TABLET PO SCH (09:25)
[2021-04-15] MEDS: lisINopril 10 MG (PRINIVIL) TABLET PO SCH (09:25)
[2021-04-15] MEDS: polyethylene glycoL POWDER 17 GM (MIRALAX) PACK PO SCH ×2 (09:25→21:53)
[2021-04-15] MEDS: SENNA W/DOCUSATE (SENOKOT S) TABLET PO SCH ×2 (09:25→21:53)
[2021-04-15] MEDS: DOCUSATE SODIUM 100 MG (COLACE) CAP PO SCH ×2 (09:25→21:53)
[2021-04-15] MEDS: oxyCODONE/APAP 7.5-325 MG (PERCOCET 7.5) TABLET PO PRN ×3 (13:45→22:13)
[2021-04-15] MEDS: CATHETER FLUSH 10 ML SYR IV SCH ×2 (14:17→22:17)
[2021-04-15 20:00] VITALS: BP 110/56
[2021-04-15] MEDS: SENNOSIDES 8.6 MG (SENOKOT) TAB PO SCH (21:53)
[2021-04-16] MEDS: CATHETER FLUSH 10 ML SYR IV SCH ×3 (06:21→21:31)
[2021-04-16 06:40] LABS: BASOPHILS # (AUTO) 0.1 10^3/uL (0.0-0.1); BASOPHILS % (AUTO) 1 % (0-10); EOSINOPHILS # (AUTO) 0.4 10^3/uL (0.0-0.3); EOSINOPHILS % (AUTO) 3 % (0-10); HEMATOCRIT 24 % (40-54); HEMOGLOBIN 7.8 g/dL (13.3-17.7); LYMPHOCYTES # (AUTO) 1.7 10^3/uL (1.0-4.0); LYMPHOCYTES % (AUTO) 11 % (12-44); MEAN CORPUSCULAR HEMOGLOBIN 31 pg (25-34); MEAN CORPUSCULAR HGB CONC 33 g/dL (32-36); MEAN CORPUSCULAR VOLUME 95 fL (80-99); MONOCYTES # (AUTO) 1.4 10^3/uL (0.0-1.0); MONOCYTES % (AUTO) 9 % (0-12); NEUTROPHILS # (AUTO) 11.8 10^3/uL (1.8-7.8); NEUTROPHILS % (AUTO) 74 % (42-75); PLATELET COUNT 736 10^3/uL (130-400); WHITE BLOOD COUNT 15.9 10^3/uL (4.3-11.0)
[2021-04-16] MEDS: RT--FLUTICASONE/SALMETEROL 113-14 (AIRDUO RespiCLICK) IH SCH ×2 (06:41→20:17)
[2021-04-16 06:52] LABS: ALBUMIN 3.2 GM/DL (3.2-4.5); BILIRUBIN,TOTAL 0.4 MG/DL (0.1-1.0); CALCIUM 8.7 MG/DL (8.5-10.1); CREATININE SERUM 1.04 MG/DL (0.60-1.30); POTASSIUM 3.1 MMOL/L (3.6-5.0); TOTAL PROTEIN 6.1 GM/DL (6.4-8.2)
[2021-04-16 07:05] VITALS: BP 130/71
[2021-04-16] MEDS: polyethylene glycoL POWDER 17 GM (MIRALAX) PACK PO SCH ×2 (07:32→21:00)
[2021-04-16] MEDS: FUROSEMIDE 20 MG (LASIX) TAB PO SCH ×2 (07:42→18:10)
[2021-04-16] MEDS: oxyCODONE/APAP 7.5-325 MG (PERCOCET 7.5) TABLET PO PRN ×4 (07:55→23:21)
[2021-04-16] MEDS: ASPIRIN E.C. 81 MG (ECOTRIN) TAB PO SCH (07:57)
[2021-04-16] MEDS: EMPAGLIFLOZIN 10 MG TABLET (JARDIANCE) PO SCH (07:57)
[2021-04-16] MEDS: metFORMIN 500 MG (GLUCOPHAGE) TAB PO SCH ×2 (07:58→21:28)
[2021-04-16] MEDS: KCL 10 MEQ TAB (MICRO K) PO SCH ×2 (07:58→18:11)
[2021-04-16] MEDS: MULTIVIT W/MINERALS TAB (THERAGRAN M) PO SCH (07:58)
[2021-04-16] MEDS: PANTOPRAZOLE 40 MG (PROTONIX) TAB PO SCH (07:58)
[2021-04-16] MEDS: APIXABAN 5 MG (ELIQUIS) TABLET PO SCH ×2 (07:58→21:28)
[2021-04-16] MEDS: CEPHALEXIN 250 MG (KEFLEX) CAP PO SCH ×3 (07:59→21:28)
[2021-04-16] MEDS: CLOPIDOGREL 75 MG (PLAVIX) TABLET PO SCH (07:59)
[2021-04-16] MEDS: lisINopril 10 MG (PRINIVIL) TABLET PO SCH (08:02)
[2021-04-16] MEDS: meTOprolol TARTRATE 25 MG (LOPRESSOR) TABLET PO SCH (08:02)
[2021-04-16] MEDS: SENNA W/DOCUSATE (SENOKOT S) TABLET PO SCH ×2 (08:08→21:00)
[2021-04-16] MEDS: DOCUSATE SODIUM 100 MG (COLACE) CAP PO SCH ×2 (08:08→21:00)
--- NOTE | 2021-04-16 08:44 | Occupational Ther Daily Note ---
OT Current Status-Daily Note Subjective Pt alert, lying in bed. Pt agrees to therapy. No c/o pain initially. During one part of session, pt c/o pain radiating from under L arm and up to L ribs, reported to nrsg and pain dissipated quickly. BP 135/77. Possible muscle pain due to pulling up with L UE from toilet using grabbars. Mental Status/Objective Patient Orientation: Person, Place, Time, Situation ADL-Treatment Pt declines shower, stating that he had one yesterday. SBA for EOB to w/c then w/c to toilet using hand holds and grabbars. Nrsg assisted pt with cleansing buttocks after BM while pt stood stabilizing self with grabbar and nrsg. Pt sat at sink to complete grooming and oral care independently. Therapy Code Descriptions/Definitions Functional [place] Measure: 0=Not Assessed/NA 4=Minimal Assistance 1=Total Assistance 5=Supervision or Setup 2=Maximal Assistance 6=Modified [place] 3=Moderate Assistance 7=Complete IndependenceSCALE: Activities may be completed with or without assistive devices. 9-Gsbrpqnjzl-eivxbie completes the activity by him/herself with no assistance from a helper. 5-Set-up or Clean-up Assistance-helper sets up or cleans up; patient completes activity. [place] assists only prior to or following the activity. 4-Supervision or Touching Assistance-helper provides verbal cues and/or touching/steadying and/or contact guard assistance as patient completes activity. Assistance may be provided throughout the activity or intermittently. 3-Partial/Moderate Assistance-helper does LESS THAN HALF the effort. [place] lifts, holds or supports trunk or limbs, but provides less than half the effort. 2-Substantial/Maximal Assistance-helper does MORE THAN HALF the effort. [place] lifts or holds trunk or limbs and provides more than half the effort. 0-Jjxrlodqf-deustq does ALL the effort. Patient does none of the effort to complete the activity. Or, the assistance of 2 or more helpers is required for the patient to complete the activity. If activity was not attempted, code reason: 7-Patient Refused. 9-Not Applicable-not attempted and the patient did not perform the activity before the current illness, exacerbation or injury. 10-Not Attempted due to Environmental Limitations-(lack of equipment, weather restraints, etc.). 88-Not Attempted due to Medical Conditions or Safety Concerns. Eating (QC): 6 Oral Hygiene (QC): 6 Toileting Hygiene (QC): 2 Toilet Transfer (QC): 4 Multiple recovery breaks throughout treatment required due to decreased activity tolerance. Other Treatment Pt propelled w/c to therapy gym independently. Pt then worked on dynamic standing (in parallel bars) and sitting (from w/c) to increase functional independence for ADLs and IADLs. CGA for standing and SBA for sitting while pt stabilized self using parallel bars in standing and w/c arm in sitting, one hand while reaching and grasping items with other hand and placing in designated area. Pt then propelled w/c around 2nd floor independently with 4 recovery breaks to increase B UE strength and stamina. After session, pt sitting in recliner with call light/phone in reach. All needs met in room. OT Short Term Goals Short Term Goals Time Frame: Apr 25, 2021 Toileting hygiene: 4 Shower/bathe self: 5 Upper body dressin Lower body dressin OT Pain Management Nurse Practitioner Goals [place] Goals Time Frame: May 04, 2021 Eating (QC): 6 Oral Hygiene (QC): 6 Toileting Hygiene (QC): 6 Shower/Bathe Self (QC): 6 Upper Body Dressing (QC): 6 Lower Body Dressing (QC): 6 On/Off Footwear (QC): 6 Additional Goals: 1-Demonstrate ADL Tasks, 2-Verbalize Understanding, 3- ImproveStrength/Deniz 1=Demonstrate adherence to instructed precautions during ADL tasks. 2=Patient will verbalize/demonstrate understanding of assistive devices/modifications for ADL. 3=Patient will improve strength/tolerance for activity to enable patient to perform ADL's. OT Education/Plan Problem List/Assessment Assessment: Decreased Activ Tolerance, Decreased UE Strength, Impaired Coordination, Impaired Funct Balance, Impaired Self-Care Skills Discharge Recommendations Plan/Recommendations: Continue POC Treatment Plan/Plan of Care Patient would benefit from OT for education, treatment and training to promote independence in ADL's, mobility, safety and/or upper extremity function for ADL's. Plan of Care: ADL Retraining, Functional Mobility, Group Exercise/Act as Ind, UE Funct Exercise/Act Treatment Duration: May 04, 2021 Frequency: At least 5 of 7 days/Wk (IRF) Estimated Hrs Per Day: 1.5 hours per day Agreement: Yes Rehab Potential: Fair Time/GCodes Start Time: 07:15 Stop Time: 08:45 Total Time Billed (hr/min): 90 Billed Treatment Time 1 visit-ADL 3 (45 min) EX 3 (45 min) FLORENCE CHIRINOS Apr 16, 2021 08:44
[2021-04-16] MEDS ORDERED: SALINE NASAL SPRAY (OCEAN) 45 ML BTL PRN (09:00)
[2021-04-16] MEDS ORDERED: SOD CHL GEL 0.5 OZ (AYR SALINE NASAL GEL) TUBE TOP PRN (09:00)
[2021-04-16 09:53] VITALS: BP 119/71
--- NOTE | 2021-04-16 10:21 | Physical Therapy Daily Note ---
PT Daily Note-Current Subjective Pt. up in recliner, agrees to Rx. Shares that he "just doesnt feel right, a little dizzy and just off" Pt. takes deep sighs and requests rest breaks. Pt. states he hopes to find an apartment that is handicapped accessible . Hopes that he will feel better after iron infusions begin. Pain Location: No Pain Reported Comment: reports phantom pain ans sensations in L Mental Status Patient Orientation: Person, Place, Time, Situation, Normal For Age Transfers SCALE: Activities may be completed with or without assistive devices. 3-Ewdmxbqlqz-ixyfzre completes the activity by him/herself with no assistance from a helper. 5-Set-up or Clean-up Assistance-helper sets up or cleans up; patient completes activity. [place] assists only prior to or following the activity. 4-Supervision or Touching Assistance-helper provides verbal cues and/or touching/steadying and/or contact guard assistance as patient completes activity. Assistance may be provided throughout the activity or intermittently. 3-Partial/Moderate Assistance-helper does LESS THAN HALF the effort. [place] lifts, holds or supports trunk or limbs, but provides less than half the effort. 2-Substantial/Maximal Assistance-helper does MORE THAN HALF the effort. [place] lifts or holds trunk or limbs and provides more than half the effort. 3-Wpvuxvmnt-nwopry does ALL the effort. Patient does none of the effort to complete the activity. Or, the assistance of 2 or more helpers is required for the patient to complete the activity. If activity was not attempted, code reason: 7-Patient Refused. 9-Not Applicable-not attempted and the patient did not perform the activity before the current illness, exacerbation or injury. 10-Not Attempted due to Environmental Limitations-(lack of equipment, weather restraints, etc.). 88-Not Attempted due to Medical Conditions or Safety Concerns. Sit to Stand (QC): 5 Chair/Fin-pj-Qczsi Xfer(QC): 5 Toilet Transfer (QC): 5 multiple TRFs recliner to w/c to toilet to w/c to recliner all CGA . pt. is good to review and talk through what he plans before TRFing. Wheelchair Training Does the Pt Use a Wheelchair?: Yes Type of Wheelchair: Manual many turns and manuevers in [facility] space of room in out bathroom and approaching toilet and recliner for safest TRF angle Exercises Supine Ex: Ankle pumps, Quad Set, Glut sets, Heel Slides, Short Arc Quads, Scooting (up in recliner), Straight leg raise, Hip abd/add Supine Reps: 20 Seated Therapy Exercises: Ankle pumps, Sit to stand (6), Long arc quads, Hip flexion, Hip abd/add Seated Reps: 12 Treatments Rxs limited in stance and on feet activities as pts hgb 7.8 and he c/o dizziness and "not feeling right" BP in sitting 116/67 ,HR82, O2 sats 98%. Assessment Current Status: Good Progress limited upright activity and gait secondary to hgb, pt. expecting to recieve iron infusion/midline placement PT Short Term Goals Short Term Goals Time Frame: Apr 19, 2021 Roll Left & Right: 6 Sit to lyin Lying to sitting on side of be: 6 Sit to stand: 4 Chair/qxv-ff-oysjf transfer: 4 (SBA) Walk 10 feet: 4 Walk 50 feet with two turns: 4 PT Hris Developer Goals Hris Developer Goals PT Hris Developer Goals Time Frame: May 03, 2021 Roll Left & Right (QC): 6 Sit to Lying (QC): 6 Lying-Sitting on Side/Bed(QC): 6 Sit to Stand (QC): 5 Chair/Pak-vb-Gycdp Xfer(QC): 5 Toilet Transfer (QC): 5 Car Transfer (QC): 5 Does the Patient Walk: Yes Walk 10 feet (QC): 5 Walk 50ft with 2 Turns (QC): 5 Walk 150 ft (QC): 88 Walking 10ft on Uneven Surface: 4 1 Step (curb) (QC): 4 4 Steps (QC): 4 12 Steps (QC): 88 Picking up an Object (QC): 5 Wheel 50 feet with 2 turns (QC: 6 Wheel 150 feet: 6 PT Plan Treatment/Plan Treatment Plan: Continue Plan of Care Treatment Plan: Bed Mobility, Education, Functional Activity Deniz, Functional Strength, Group Therapy, Gait, Safety, Therapeutic Exercise, Transfers Treatment Duration: May 03, 2021 Frequency: At least 5 of 7 days/Wk (IRF) Estimated Hrs Per Day: 1.5 hours per day Patient and/or Family Agrees t: Yes Safety Risks/Education Patient Education: Transfer Techniques, Correct Positioning, W/C Management, Disease Process, Safety Issues Teaching Recipient: Patient Teaching Methods: Demonstration, Discussion Response to Teaching: Verbalize Understanding, Return Demonstration, Reinforcement Needed Time/GCodes Time In: 915 Time Out: 1015 Total Billed Treatment Time: 60 Total Billed Treatment 1,FA35m,EX25m ABE KHAN HEEL FORMER Apr 16, 2021 10:21
--- NOTE | 2021-04-16 10:35 | PM&R Progress Note ---
Subjective HPI/CC On Admission Date Seen by Provider: Apr 16, 2021 Time Seen by Provider: 11:00 Subjective/Events-last exam 04/16/2021: Pt doing well Hgb 7.8 Midline will be placed for iron infusions Incision looks good Potassium 3.1 supplementing 20mEq TID 04/15/2021: Patient doing pretty well Lightheadedness noted Iron infusions given for acute blood loss anemia Checking labs tomorrow may need transfusion Stopping Accu-Cheks since they are all normal 04/14/2021: Patient doing well Denies any new issues Pain is well controlled Bowels moved today Iron infusions maintained Midline will be placed 04/13/2021: Patient settling in White count elevated just as it was at [place] No fever Wound care managing dressing Subtle crackle left lower lobe Smoking cessation Encouraged to use incentive spirometer Iron low will start Venofer Review of Systems General: Fatigue, Malaise Musculoskeletal: leg pain Neurological: Weakness Objective Exam Vital Signs Vital Signs Date Time Temp Pulse Resp B/P (MAP) Pulse Ox O2 Delivery O2 Flow Rate FiO2 04/16/21 21:00 Room Air 04/16/21 20:17 98 04/16/21 20:00 36.8 95 19 103/61 (75) 04/15/21 07:44 0.00 Capillary Refill : General Appearance: No Apparent Distress, WD/WN, Chronically ill HEENT: PERRL/EOMI, Normal ENT Inspection, Pharynx Normal Neck: Full Range of Motion, Normal Inspection, Non Tender, Supple, Carotid Bruit Respiratory: Chest Non Tender, Lungs Clear, Normal Breath Sounds, No Accessory Muscle Use, No Respiratory Distress Cardiovascular: Regular Rate, Rhythm, No Edema, No Gallop, No JVD, No Murmur, Normal Peripheral Pulses Gastrointestinal: Normal Bowel Sounds, No Organomegaly, No Pulsatile Mass, Non Tender, Soft Back: Normal Inspection, No CVA Tenderness, No Vertebral Tenderness Extremity: Normal Capillary Refill, Normal Inspection, Normal Range of Motion, Non Tender, No Calf Tenderness, No Pedal Edema, Other (Left AKA) Neurologic/Psychiatric: Alert, Oriented x3, No Motor/Sensory Deficits, Normal Mood/Affect, Abnormal Gait, Motor Weakness (Generalized) Skin: Normal Color, Warm/Dry Lymphatic: No Adenopathy Results/Procedures Lab Laboratory Tests 04/16/21 06:23 Patient resulted labs reviewed. FIM Transfers Therapy Code Descriptions/Definitions Functional [place] Measure: 0=Not Assessed/NA 4=Minimal Assistance 1=Total Assistance 5=Supervision or Setup 2=Maximal Assistance 6=Modified [place] 3=Moderate Assistance 7=Complete IndependenceSCALE: Activities may be completed with or without assistive devices. 9-Htoncqxrhk-dzdbnwe completes the activity by him/herself with no assistance from a helper. 5-Set-up or Clean-up Assistance-helper sets up or cleans up; patient completes activity. [place] assists only prior to or following the activity. 4-Supervision or Touching Assistance-helper provides verbal cues and/or touching/steadying and/or contact guard assistance as patient completes activity. Assistance may be provided throughout the activity or intermittently. 3-Partial/Moderate Assistance-helper does LESS THAN HALF the effort. [place] lifts, holds or supports trunk or limbs, but provides less than half the effort. 2-Substantial/Maximal Assistance-helper does MORE THAN HALF the effort. [place] lifts or holds trunk or limbs and provides more than half the effort. 1-Zqssurexv-ucyhxx does ALL the effort. Patient does none of the effort to complete the activity. Or, the assistance of 2 or more helpers is required for the patient to complete the activity. If activity was not attempted, code reason: 7-Patient Refused. 9-Not Applicable-not attempted and the patient did not perform the activity before the current illness, exacerbation or injury. 10-Not Attempted due to Environmental Limitations-(lack of equipment, weather restraints, etc.). 88-Not Attempted due to Medical Conditions or Safety Concerns. Roll Left to Right (QC): 5 Sit to Lying (QC): 5 Sit to Stand (QC): 5 Chair/Ggs-iv-Vjuyq Xfer(QC): 5 Car Transfer (QC): 4 Gait Training Does the Patient Walk?: Yes Walk 10 feet (QC): 4 Walk 50 ft with 2 Turns(QC): 88 Walk 150 ft (QC): 88 Walking 10ft/uneven surface-QC: 88 Gait Assistive Device: FWW Wheelchair Training Does the Pt Use a Wheelchair?: Yes Distance: 150' Wheel 50 ft with 2 turns (QC): 4 Wheel 150 ft (QC): 4 Type of Wheelchair: Manual Stair Training 1 Step (curb) (QC): 88 4 Steps (QC): 88 12 Steps (QC): 88 Balance Picking up an Object (QC): 4 ADL-Treatment Eating (QC): 6 Oral Hygiene (QC): 6 Bathing Location: L Arm, R Arm, L Lower Leg (including foot), R Lower Leg (including foot) (AKA), Chest, Abdomen, Perineal Area Shower/Bathe Self (QC): 3 Upper Body Dressing (QC): 5 Lower Body Dressing (QC): 1 On/Off Footwear (QC): 2 Toileting Hygiene (QC): 2 Toilet Transfer (QC): 4 Assessment/Plan Assessment and Plan Assess & Plan/Chief Complaint Assessment: 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
[2021-04-16] MEDS ORDERED: KCL 10 MEQ TAB (MICRO K) PO SCH (11:30)
--- NOTE | 2021-04-16 11:52 | Podiatry Progress Note ---
Standard Progress Note Progress Notes/Assess & Plan Date Seen by a Provider: Apr 16, 2021 Time Seen by a Provider: 11:50 Progress/Assessment & Plan Consultation was dictated and foot care given. Final Diagnosis PVD, Onychomycosis, Peripheral Neuropathy, Xerosis DARION MANDEL DPM Apr 16, 2021 11:52
--- NOTE | 2021-04-16 12:36 | Wound Care Assessment ---
Wound Care Assessment Date Seen by Provider: Apr 16, 2021 Time Seen by Provider: 12:29 Chief Complaint 1. AKA stump wound 2. R. elbow (skin tear) 3. Gluteal cleft stage 3 sacral pressure ulcer HPI Pradeep is a pleasant gentleman recently admitted to [facility] with wet gangrene of his foot. He had a guillotine BKA recently with stump revision last . His incision today looks great. There is no associated erythema, edema or purulent drainage. Scant blood drainage only and sophia intact. Dr. Dunne has been consulted and is managing this site. Pradeep has what looks like a skin tear to his posterior elbow on the right with a bordered foam in place. There is no surrounding erythema or signs of infection. He also has a stage 3 pressure injury to his gluteal cleft with bordered foam in place. There does appear to be some moisture injury in this region as well. His wound healing will be complicated by underlying diabetes (FSBS look good) and mobility. Smoking Status: Former Smoker Alcohol Use: Occasionally Uses Review of Systems Cardiovascular: Edema Exam Vital Signs Date Time Temp Pulse Resp B/P (MAP) Pulse Ox O2 Delivery O2 Flow Rate FiO2 04/16/21 10:40 Room Air 04/16/21 09:53 119/71 (87) 04/16/21 07:05 36.7 90 18 97 04/15/21 07:44 0.00 Capillary Refill : General Appearance: WD/WN, no apparent distress Neck: full range of motion Cardiovascular: other (Edema 1+ RLE) Respiratory: no respiratory distress, no accessory muscle use Extremities: normal range of motion, non-tender, pedal edema Neurologic/Psychiatric: alert, normal mood/affect, oriented x 3 Skin: normal color, warm/dry 1. Left AKA stump incision: no surrounding erythema, edema, induration or bogginess, bloody drainage. Clean, dry and intact. Sophia in place 2. R. elbow: Approximately 1x1x0.1cm. The epithelialization is none, there is no tunneling or undermining, drainage is small and serous, granulation is small and pink, necrotic is large and slough, wound margins are flat. There is no surrounding erythema or induration 3. Gluteal cleft: 1.2x0.5x0.2cm (nursing measurements). The epithelialization is none, there is no tunneling or undermining. Drainage is medium and serosanguinous. Granulation is small and pink, necrotic is large and slough/eschar. Margins are flat. There is some associated maceration in the periwound. Results Laboratory Tests 04/16/21 05:20: Glucometer 117H 04/16/21 06:23: White Blood Count 15.9H, Red Blood Count 2.52L, Hemoglobin 7.8L, Hematocrit 24L, Mean Corpuscular Volume 95, Mean Corpuscular Hemoglobin 31, Mean Corpuscular Hemoglobin Concent 33, Red Cell Distribution Width 14.7H, Platelet Count 736H, Mean Platelet Volume 10.0, Immature Granulocyte % (Auto) 3, Neutrophils (%) (Auto) 74, Lymphocytes (%) (Auto) 11L, Monocytes (%) (Auto) 9, Eosinophils (%) (Auto) 3, Basophils (%) (Auto) 1, Neutrophils # (Auto) 11.8H, Lymphocytes # (Auto) 1.7, Monocytes # (Auto) 1.4H, Eosinophils # (Auto) 0.4H, Basophils # (Auto) 0.1, Immature Granulocyte # (Auto) 0.5H, Sodium Level 138, Potassium Level 3.1L, Chloride Level 105, Carbon Dioxide Level 21, Anion Gap 12, Blood Urea Nitrogen 8, Creatinine 1.04, Estimat Glomerular Filtration Rate 73, BUN/Creatinine Ratio 8, Glucose Level 126H, Calcium Level 8.7, Corrected Calcium 9.3, Total Bilirubin 0.4, Aspartate Amino Transf (AST/SGOT) 35H, Alanine Aminotransferase (ALT/SGPT) 49, Alkaline Phosphatase 58, Total Protein 6.1L, Albumin 3.2 Assessment/Plan/Dx Assessment: 1. S/p stump revision (AKA) for wet gangrene: Primary surgical, secondary infection (also possibly with atherosclerosis) 2. R. elbow full thickness non-pressure ulcer: Primary trauma 3. Gluteal cleft: Stage 3 pressure, secondary moisture associated Plan: 1. Defer incision care to Dr. Dunne. Looks reassuring. Nursing staff to get copies of arterial intervention per Dr. Velasco at [place] 2. Cleanse elbow and gluteal ulcers daily with Dakin's solution. Cover with silver alginate hydrofiber sheet and bordered foam dressing. Change daily 3. Barrier ointment to periwound on gluteal pressure ulcer. 4. Agree with bordered foam to right heel. Also advise elevation as much as possible as well. SHALINI DE LA TORRE MD Apr 16, 2021 12:36
[2021-04-16] MEDS: IRON SUCROSE 200 MG/10 ML (VENOFER) VIAL IV SCH (13:08)
[2021-04-16] MEDS ORDERED: IRON SUCROSE 200 MG/10 ML (VENOFER) VIAL IV SCH (14:00)
--- NOTE | 2021-04-16 14:30 | CONSULTATION REPORT ---
DATE OF SERVICE: 04/16/2021 REASON FOR CONSULTATION: Foot care. HISTORY OF PRESENT ILLNESS: This 60-year-old male was admitted for rehabilitation after jhtuh-hsk-mege amputation of the left lower extremity. He has difficulty reaching for and caring for his feet at this juncture and he is very concerned about the vascular supply for his right lower extremity as well as nail care. He also has noticed a new wound to the back of the right heel and he has been pursuing pressure precautions and wound care while at [facility]. PAST MEDICAL HISTORY: Includes diabetes, hypertension, hypercholesterolemia, coronary artery disease, peripheral vascular disease. PAST SURGICAL HISTORY: Include an uzhaz-uaj-uswi amputation of the left lower extremity. ALLERGIES: He has no known drug allergies. CURRENT MEDICATIONS: Listed on the patient's chart. SOCIAL HISTORY: The patient has a greater than a 31-dsoj-pcqr history of tobacco use. He denies any alcohol use currently or illicit drug use. PHYSICAL EXAMINATION: LOWER EXTREMITY: The patient has 0/4 dorsalis pedis pulse, 0/4 posterior tibial pulse on the right. Cap refill time is less than 3 seconds. Pitting edema is noted to the right lower extremity. NEUROLOGIC: The patient has diminished protective sensation with 10 gram monofilament wire examination bilaterally. He also has diminished vibratory sensation to the right forefoot. INTEGUMENTARY: The patient has a partial thickness wound to the posterior aspect of the right calcaneus that measures approximately 1 cm in diameter. No erythema, edema or gross signs of bacterial infection. No exudate. No bogginess noted. Thick yellow dystrophic toenails with subungual debris associated with R1, 2, 3, 4 and 5 digits. Dry scaly skin noted to the plantar aspect of the foot bilaterally. MUSCULOSKELETAL FINDINGS: He has 5/5 muscle strength to the four major quadrants of the foot. He has tbgcg-lfx-uscy amputation of the left lower extremity. ASSESSMENT: 1. Peripheral vascular disease, right lower extremity edema. 2. Onychomycosis. 3. Partial thickness wound, right heel. 4. Oqozh-xij-mswc amputation, left lower extremity. 5. Diabetic neuropathy. PLAN: Various treatment options were discussed with the patient today. We discussed diabetic foot care in general. His toenails were debrided on the right lower extremity manual mechanically. Betadine applied. The purpose of this is to reduce any potential for snagging and causing trauma. The patient is to continue with heel pressure precautions and dressing changes daily for his right lower extremity. The patient is welcome to follow up in my office upon discharge. Job ID: [id number] DocumentID: [id number] Dictated Date: 04/16/2021 11:59:14 Contact Worker Date: 04/16/2021 14:30:03 Dictated By: DARION MANDEL DPM
[2021-04-16 20:00] VITALS: BP 103/61
[2021-04-16] MEDS: SENNOSIDES 8.6 MG (SENOKOT) TAB PO SCH (21:00)
--- NOTE | 2021-04-17 05:59 | PM&R Progress Note ---
Subjective HPI/CC On Admission Date Seen by Provider: Apr 17, 2021 Time Seen by Provider: 08:30 Subjective/Events-last exam 04/17/2021: Pt doing a lot better Bowels moved yesterday Holding Lisinopril and Metoprolol due to hypotension Mild dizziness noted Small nose bleed last night maintained on saline nasal spray Will give amputation society information to him 04/16/2021: Pt doing well Hgb 7.8 Midline will be placed for iron infusions Incision looks good Potassium 3.1 supplementing 20mEq TID 04/15/2021: Patient doing pretty well Lightheadedness noted Iron infusions given for acute blood loss anemia Checking labs tomorrow may need transfusion Stopping Accu-Cheks since they are all normal 04/14/2021: Patient doing well Denies any new issues Pain is well controlled Bowels moved today Iron infusions maintained Midline will be placed 04/13/2021: Patient settling in White count elevated just as it was at [place] No fever Wound care managing dressing Subtle crackle left lower lobe Smoking cessation Encouraged to use incentive spirometer Iron low will start Venofer Review of Systems General: Fatigue, Malaise Objective Exam Vital Signs Vital Signs Date Time Temp Pulse Resp B/P (MAP) Pulse Ox O2 Delivery O2 Flow Rate FiO2 04/17/21 21:23 97 Room Air 04/17/21 20:00 36.9 94 18 108/60 (76) 04/15/21 07:44 0.00 Capillary Refill : General Appearance: No Apparent Distress, WD/WN, Chronically ill HEENT: PERRL/EOMI, Normal ENT Inspection, Pharynx Normal Neck: Full Range of Motion, Normal Inspection, Non Tender, Supple, Carotid Bruit Respiratory: Chest Non Tender, Lungs Clear, Normal Breath Sounds, No Accessory Muscle Use, No Respiratory Distress Cardiovascular: Regular Rate, Rhythm, No Edema, No Gallop, No JVD, No Murmur, Normal Peripheral Pulses Gastrointestinal: Normal Bowel Sounds, No Organomegaly, No Pulsatile Mass, Non Tender, Soft Back: Normal Inspection, No CVA Tenderness, No Vertebral Tenderness Extremity: Normal Capillary Refill, Normal Inspection, Normal Range of Motion, Non Tender, No Calf Tenderness, No Pedal Edema, Other (Left AKA) Neurologic/Psychiatric: Alert, Oriented x3, No Motor/Sensory Deficits, Normal Mood/Affect, Abnormal Gait, Motor Weakness (Generalized) Skin: Normal Color, Warm/Dry Lymphatic: No Adenopathy Results/Procedures Lab Patient resulted labs reviewed. FIM Transfers Therapy Code Descriptions/Definitions Functional [place] Measure: 0=Not Assessed/NA 4=Minimal Assistance 1=Total Assistance 5=Supervision or Setup 2=Maximal Assistance 6=Modified [place] 3=Moderate Assistance 7=Complete IndependenceSCALE: Activities may be completed with or without assistive devices. 0-Mdonmcyzji-ymzhpcs completes the activity by him/herself with no assistance from a helper. 5-Set-up or Clean-up Assistance-helper sets up or cleans up; patient completes activity. [place] assists only prior to or following the activity. 4-Supervision or Touching Assistance-helper provides verbal cues and/or touching/steadying and/or contact guard assistance as patient completes activity. Assistance may be provided throughout the activity or intermittently. 3-Partial/Moderate Assistance-helper does LESS THAN HALF the effort. [place] lifts, holds or supports trunk or limbs, but provides less than half the effort. 2-Substantial/Maximal Assistance-helper does MORE THAN HALF the effort. [place] l ifts or holds trunk or limbs and provides more than half the effort. 8-Fsgtpuxkn-lpxxvw does ALL the effort. Patient does none of the effort to complete the activity. Or, the assistance of 2 or more helpers is required for the patient to complete the activity. If activity was not attempted, code reason: 7-Patient Refused. 9-Not Applicable-not attempted and the patient did not perform the activity before the current illness, exacerbation or injury. 10-Not Attempted due to Environmental Limitations-(lack of equipment, weather restraints, etc.). 88-Not Attempted due to Medical Conditions or Safety Concerns. Roll Left to Right (QC): 5 Sit to Lying (QC): 5 Sit to Stand (QC): 5 Chair/Grh-ey-Sykif Xfer(QC): 5 Car Transfer (QC): 4 Gait Training Does the Patient Walk?: Yes Walk 10 feet (QC): 4 Walk 50 ft with 2 Turns(QC): 88 Walk 150 ft (QC): 88 Walking 10ft/uneven surface-QC: 88 Gait Assistive Device: FWW Wheelchair Training Does the Pt Use a Wheelchair?: Yes Distance: 150' Wheel 50 ft with 2 turns (QC): 4 Wheel 150 ft (QC): 4 Type of Wheelchair: Manual Stair Training 1 Step (curb) (QC): 88 4 Steps (QC): 88 12 Steps (QC): 88 Balance Picking up an Object (QC): 4 ADL-Treatment Eating (QC): 6 Oral Hygiene (QC): 6 Bathing Location: L Arm, R Arm, L Lower Leg (including foot), R Lower Leg (including foot) (AKA), Chest, Abdomen, Perineal Area Shower/Bathe Self (QC): 3 Upper Body Dressing (QC): 5 Lower Body Dressing (QC): 1 On/Off Footwear (QC): 2 Toileting Hygiene (QC): 2 Toilet Transfer (QC): 4 Assessment/Plan Assessment and Plan Assess & Plan/Chief Complaint Assessment: 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 Previous smoker Right lower extremity wounds Leukocytosis due to stress from amputation Diabetes Hypertension Acute blood loss anemia with iron deficiency Left lower lobe crackle on 04/13/2021 Plan: Supportive care Rehab protocol Pain meds 04/13/2021: Incentive spirometer Iron infusion 04/14/21: Iron infusions B12 supplement 04/15/2021: Check labs in the morning Maintain iron infusion 04/16/2021: Supportive care Iron infusions Midline placement 04/17/2021: Iron infusions Amputation site information for support (1) Above knee amputation of left lower extremity CHRISTOPHE HERNANDEZ DO Apr 17, 2021 05:59
[2021-04-17] MEDS: FUROSEMIDE 20 MG (LASIX) TAB PO SCH ×2 (06:38→17:10)
[2021-04-17] MEDS: oxyCODONE/APAP 7.5-325 MG (PERCOCET 7.5) TABLET PO PRN ×4 (06:38→21:53)
[2021-04-17] MEDS: CATHETER FLUSH 10 ML SYR IV SCH ×3 (06:38→21:53)
[2021-04-17] MEDS: RT--FLUTICASONE/SALMETEROL 113-14 (AIRDUO RespiCLICK) IH SCH ×2 (07:27→21:23)
[2021-04-17 07:33] VITALS: BP 119/59
[2021-04-17] MEDS: ASPIRIN E.C. 81 MG (ECOTRIN) TAB PO SCH (07:52)
[2021-04-17] MEDS: metFORMIN 500 MG (GLUCOPHAGE) TAB PO SCH ×2 (07:52→21:50)
[2021-04-17] MEDS: APIXABAN 5 MG (ELIQUIS) TABLET PO SCH (07:53)
[2021-04-17] MEDS: KCL 10 MEQ TAB (MICRO K) PO SCH ×3 (07:53→17:10)
[2021-04-17] MEDS: PANTOPRAZOLE 40 MG (PROTONIX) TAB PO SCH (07:53)
[2021-04-17] MEDS: CLOPIDOGREL 75 MG (PLAVIX) TABLET PO SCH (07:53)
[2021-04-17] MEDS: MULTIVIT W/MINERALS TAB (THERAGRAN M) PO SCH (07:53)
[2021-04-17] MEDS: CEPHALEXIN 250 MG (KEFLEX) CAP PO SCH ×2 (07:53→13:03)
[2021-04-17] MEDS: EMPAGLIFLOZIN 10 MG TABLET (JARDIANCE) PO SCH (07:53)
[2021-04-17] MEDS: DAKIN'S 1/4 STRENGTH (0.125%) 237 ML BTL TOP SCH (07:55)
[2021-04-17] MEDS: DOCUSATE SODIUM 100 MG (COLACE) CAP PO SCH ×2 (07:57→22:18)
[2021-04-17] MEDS: polyethylene glycoL POWDER 17 GM (MIRALAX) PACK PO SCH ×2 (07:57→22:18)
[2021-04-17] MEDS: meTOprolol TARTRATE 25 MG (LOPRESSOR) TABLET PO SCH (07:57)
[2021-04-17] MEDS: SENNA W/DOCUSATE (SENOKOT S) TABLET PO SCH ×2 (07:57→22:19)
[2021-04-17] MEDS: lisINopril 10 MG (PRINIVIL) TABLET PO SCH (07:58)
--- NOTE | 2021-04-17 09:19 | Occupational Ther Daily Note ---
OT Current Status-Daily Note Subjective Pt reports pain meds given ~1 hour prior to therapy arrival. c/o phantom pain in L foot. Appearance Left sitting in w/c, all needs within reach. Mental Status/Objective Patient Orientation: Person, Place, Situation ADL-Treatment Therapy Code Descriptions/Definitions Functional [place] Measure: 0=Not Assessed/NA 4=Minimal Assistance 1=Total Assistance 5=Supervision or Setup 2=Maximal Assistance 6=Modified [place] 3=Moderate Assistance 7=Complete IndependenceSCALE: Activities may be completed with or without assistive devices. 9-Elncclohnf-idcyuro completes the activity by him/herself with no assistance from a helper. 5-Set-up or Clean-up Assistance-helper sets up or cleans up; patient completes activity. [place] assists only prior to or following the activity. 4-Supervision or Touching Assistance-helper provides verbal cues and/or touching/steadying and/or contact guard assistance as patient completes activity. Assistance may be provided throughout the activity or intermittently. 3-Partial/Moderate Assistance-helper does LESS THAN HALF the effort. [place] lifts, holds or supports trunk or limbs, but provides less than half the effort. 2-Substantial/Maximal Assistance-helper does MORE THAN HALF the effort. [place] lifts or holds trunk or limbs and provides more than half the effort. 6-Lmbkvrlev-siehgo does ALL the effort. Patient does none of the effort to complete the activity. Or, the assistance of 2 or more helpers is required for the patient to complete the activity. If activity was not attempted, code reason: 7-Patient Refused. 9-Not Applicable-not attempted and the patient did not perform the activity before the current illness, exacerbation or injury. 10-Not Attempted due to Environmental Limitations-(lack of equipment, weather restraints, etc.). 88-Not Attempted due to Medical Conditions or Safety Concerns. Oral Hygiene (QC): 6 Lower Body Dressing (QC): 4 Toileting Hygiene (QC): 3 (Chen care completed in sitting. Min a only to ensure thoroughness due to bandage on buttocks. ) Toilet Transfer (QC): 4 Pt requests to hold off on shower until all therapies are finished. OT discussed that he will then have to complete task with nursing and only if they have enough staff/time. Pt ok with waiting. All functional transfers performed with SBA-CGA. Shorts donned over R foot without assist. He stood at bedrail to pull up to waist, close supervision for safety. Pt reports having discomfort in L shoulder/pec every time he transfers to toilet. While performing transfer, OT recognizes that pt either has w/c too close (that would require assist to push chair back when pivoting) or too far causing pt to reach too far out of SERAIFN and pulling with LUE. Education/Cues for proper set up of toilet transfer. Post instruction, pt able to perform with SBA-CGA and no c/o of pain. Clothing management performed in standing with one hand alternating on grab bar while other pulls clothing over hips. Assist to don R sock due to bulky bandage on heel. Pt declines donning shirt and requests to wear hospital gown. Grooming tasks performed at w/c level, mod I. Other Treatment Pt participated in multiple standing activities with goal to increase standing time, dynamic/static balance, RLE strength, and functional reach needed for adls and transfers. Intermittent unilateral UE support needed, but no LOB. Heavy reliance on resting trunk on mat to maintain balance when removing UE support. Pt only able to tolerate standing for ~60-90 seconds at time due to c/o pain in R knee/ankle. CGA throughout standing bouts. Education OT Patient Education: Correct positioning, Disease process, Energy conservation, Modified ADL techniques, Progress toward Goal/Update tx plan, Purpose of tx/functional activities, Rehab process, Safety issues, Transfer techniques, W/C management Teaching Recipient: Patient Teaching Methods: Demonstration, Discussion Response to Teaching: Verbalize Understanding, Return Demonstration OT Short Term Goals Short Term Goals Time Frame: Apr 25, 2021 Toileting hygiene: 4 Shower/bathe self: 5 Upper body dressin Lower body dressin OT Snf Goals Recreation Facility Manager Goals Time Frame: May 04, 2021 Eating (QC): 6 Oral Hygiene (QC): 6 Toileting Hygiene (QC): 6 Shower/Bathe Self (QC): 6 Upper Body Dressing (QC): 6 Lower Body Dressing (QC): 6 On/Off Footwear (QC): 6 Additional Goals: 1-Demonstrate ADL Tasks, 2-Verbalize Understanding, 3- ImproveStrength/Deniz 1=Demonstrate adherence to instructed precautions during ADL tasks. 2=Patient will verbalize/demonstrate understanding of assistive devices/modifications for ADL. 3=Patient will improve strength/tolerance for activity to enable patient to perform ADL's. OT Education/Plan Problem List/Assessment Assessment: Decreased Activ Tolerance, Impaired Funct Balance, Impaired I ADL's, Impaired Self-Care Skills Discharge Recommendations Plan/Recommendations: Continue POC Treatment Plan/Plan of Care Treatment,Training & Education: Yes Patient would benefit from OT for education, treatment and training to promote independence in ADL's, mobility, safety and/or upper extremity function for ADL's. Plan of Care: ADL Retraining, Functional Mobility, Group Exercise/Act as Ind, UE Funct Exercise/Act Treatment Duration: May 04, 2021 Frequency: At least 5 of 7 days/Wk (IRF) Estimated Hrs Per Day: 1.5 hours per day Agreement: Yes Rehab Potential: Fair Time/GCodes Start Time: 07:43 Stop Time: 09:13 Total Time Billed (hr/min): 90 Billed Treatment Time 1 visit ADL x3 (45 min) FA x3 (45 min) Maria Teresa Grimaldo OT Apr 17, 2021 09:19
--- NOTE | 2021-04-17 10:11 | Physical Therapy Daily Note ---
PT Daily Note-Current Subjective Patient in WC pre tx, agrees to PT, states he has minor pain in left residual limb. Patient needs a couple of shrinkers, manager social media notified. Appearance Patient in in room post tx, nurse is with him to change his bandages. Mental Status Patient Orientation: Normal For Age Transfers SCALE: Activities may be completed with or without assistive devices. 8-Zclttgqvgr-jfysgyu completes the activity by him/herself with no assistance from a helper. 5-Set-up or Clean-up Assistance-helper sets up or cleans up; patient completes activity. [place] assists only prior to or following the activity. 4-Supervision or Touching Assistance-helper provides verbal cues and/or touching/steadying and/or contact guard assistance as patient completes activity. Assistance may be provided throughout the activity or intermittently. 3-Partial/Moderate Assistance-helper does LESS THAN HALF the effort. [place] lifts, holds or supports trunk or limbs, but provides less than half the effort. 2-Substantial/Maximal Assistance-helper does MORE THAN HALF the effort. [place] lifts or holds trunk or limbs and provides more than half the effort. 8-Qnnhuyttb-pdetvt does ALL the effort. Patient does none of the effort to complete the activity. Or, the assistance of 2 or more helpers is required for the patient to complete the activity. If activity was not attempted, code reason: 7-Patient Refused. 9-Not Applicable-not attempted and the patient did not perform the activity before the current illness, exacerbation or injury. 10-Not Attempted due to Environmental Limitations-(lack of equipment, weather restraints, etc.). 88-Not Attempted due to Medical Conditions or Safety Concerns. Sit to Stand (QC): 4 Chair/Lws-dd-Unsdo Xfer(QC): 4 During tx patient has to use the urinal a couple of times, he can do this on his own. Gait Training Distance: 12'x3 Walk 10 feet (QC): 4 Gait Persons Needed: 1 Gait Assistive Device: Parallel Bars CGA, 6' forward and 6' back. Not very coordinated stepping, needs cues to slow down and take smaller steps. Wheelchair Training Does the Pt Use a Wheelchair?: Yes Wheel 50 ft with 2 turns (QC): 6 Wheel 150 ft (QC): 6 Type of Wheelchair: Manual patient needs occasional rest breaks, practiced going down/up a ramp, education on technique Exercises NuStep Minutes: 15 NuStep Workload: 5 Treatments WC mobility training, ambulation, LE strengthening Assessment Current Status: Fair Progress patient gets SOB and fatigued with activity PT Short Term Goals Short Term Goals Time Frame: Apr 19, 2021 Roll Left & Right: 6 Sit to lyin Lying to sitting on side of be: 6 Sit to stand: 4 Chair/ydi-lx-fzlls transfer: 4 (SBA) Walk 10 feet: 4 Walk 50 feet with two turns: 4 PT Community Service Manager Goals Retirement Goals PT Community Service Manager Goals Time Frame: May 03, 2021 Roll Left & Right (QC): 6 Sit to Lying (QC): 6 Lying-Sitting on Side/Bed(QC): 6 Sit to Stand (QC): 5 Chair/Vhl-wn-Octru Xfer(QC): 5 Toilet Transfer (QC): 5 Car Transfer (QC): 5 Does the Patient Walk: Yes Walk 10 feet (QC): 5 Walk 50ft with 2 Turns (QC): 5 Walk 150 ft (QC): 88 Walking 10ft on Uneven Surface: 4 1 Step (curb) (QC): 4 4 Steps (QC): 4 12 Steps (QC): 88 Picking up an Object (QC): 5 Wheel 50 feet with 2 turns (QC: 6 Wheel 150 feet: 6 PT Plan Problem List Problem List: Activity Tolerance, Functional Strength, Safety, Balance, Gait, Transfer, Bed Mobility, ROM Treatment/Plan Treatment Plan: Continue Plan of Care Treatment Plan: Bed Mobility, Education, Functional Activity Deniz, Functional Strength, Group Therapy, Gait, Safety, Therapeutic Exercise, Transfers Treatment Duration: May 03, 2021 Frequency: At least 5 of 7 days/Wk (IRF) Estimated Hrs Per Day: 1.5 hours per day Patient and/or Family Agrees t: Yes Safety Risks/Education Patient Education: Gait Training, Transfer Techniques, W/C Management, Safety Issues Teaching Recipient: Patient Teaching Methods: Demonstration, Discussion Response to Teaching: Reinforcement Needed Time/GCodes Time In: 0915 Time Out: 1015 Total Billed Treatment Time: 60 Total Billed Treatment 1 visit EX 15' FA 45' ROSEMARY CABA PT Apr 17, 2021 10:11
--- NOTE | 2021-04-17 13:31 | Physical Therapy Daily Note ---
PT Daily Note-Current Subjective Patient in WC pre tx, agrees to PT, voices no complaints of pain. Appearance Patient in WC post tx in room, has nurse call. Mental Status Patient Orientation: Normal For Age Transfers SCALE: Activities may be completed with or without assistive devices. 8-Seczqvcblm-ywrqxyo completes the activity by him/herself with no assistance from a helper. 5-Set-up or Clean-up Assistance-helper sets up or cleans up; patient completes activity. [place] assists only prior to or following the activity. 4-Supervision or Touching Assistance-helper provides verbal cues and/or touching/steadying and/or contact guard assistance as patient completes activity. Assistance may be provided throughout the activity or intermittently. 3-Partial/Moderate Assistance-helper does LESS THAN HALF the effort. [place] lifts, holds or supports trunk or limbs, but provides less than half the effort. 2-Substantial/Maximal Assistance-helper does MORE THAN HALF the effort. [place] lifts or holds trunk or limbs and provides more than half the effort. 8-Esbrbhber-eirkny does ALL the effort. Patient does none of the effort to complete the activity. Or, the assistance of 2 or more helpers is required for the patient to complete the activity. If activity was not attempted, code reason: 7-Patient Refused. 9-Not Applicable-not attempted and the patient did not perform the activity before the current illness, exacerbation or injury. 10-Not Attempted due to Environmental Limitations-(lack of equipment, weather restraints, etc.). 88-Not Attempted due to Medical Conditions or Safety Concerns. Wheelchair Training Does the Pt Use a Wheelchair?: Yes Wheel 50 ft with 2 turns (QC): 6 Wheel 150 ft (QC): 6 300'x2, we did have other things planned but it was discovered that patient had a saturated bandage on his residual limb and it was even seeping a little blood from the bandage, nurse notified and she was going to get a doctor to look at it. mobility used to strengthen arms and be able to work without getting blood everywhere until his bandage can be changed. Treatments WC mobility, strengthening Assessment Current Status: Fair Progress improving general functional mobility PT Short Term Goals Short Term Goals Time Frame: Apr 19, 2021 Roll Left & Right: 6 Sit to lyin Lying to sitting on side of be: 6 Sit to stand: 4 Chair/zwc-ll-hzzti transfer: 4 (SBA) Walk 10 feet: 4 Walk 50 feet with two turns: 4 PT Federal Aid Coordinator Goals Assisted Goals PT Assisted Goals Time Frame: May 03, 2021 Roll Left & Right (QC): 6 Sit to Lying (QC): 6 Lying-Sitting on Side/Bed(QC): 6 Sit to Stand (QC): 5 Chair/Zwq-os-Ggdqz Xfer(QC): 5 Toilet Transfer (QC): 5 Car Transfer (QC): 5 Does the Patient Walk: Yes Walk 10 feet (QC): 5 Walk 50ft with 2 Turns (QC): 5 Walk 150 ft (QC): 88 Walking 10ft on Uneven Surface: 4 1 Step (curb) (QC): 4 4 Steps (QC): 4 12 Steps (QC): 88 Picking up an Object (QC): 5 Wheel 50 feet with 2 turns (QC: 6 Wheel 150 feet: 6 PT Plan Problem List Problem List: Activity Tolerance, Functional Strength, Safety, Balance, Gait, Transfer, Bed Mobility, ROM Treatment/Plan Treatment Plan: Continue Plan of Care Treatment Plan: Bed Mobility, Education, Functional Activity Deniz, Functional Strength, Group Therapy, Gait, Safety, Therapeutic Exercise, Transfers Treatment Duration: May 03, 2021 Frequency: At least 5 of 7 days/Wk (IRF) Estimated Hrs Per Day: 1.5 hours per day Patient and/or Family Agrees t: Yes Safety Risks/Education Patient Education: Correct Positioning, W/C Management, Safety Issues Teaching Recipient: Patient Teaching Methods: Demonstration, Discussion Response to Teaching: Reinforcement Needed Time/GCodes Time In: 1300 Time Out: 1330 Total Billed Treatment Time: 30 Total Billed Treatment 1 visit FA 30' ROSEMARY CABA PT Apr 17, 2021 13:31
--- NOTE | 2021-04-17 14:40 | Progress Note - Surgery ---
LADARIUS COOPERIN 04/17/21 1440: Subjective Date Seen by a Provider: Apr 17, 2021 Time Seen by a Provider: 14:11 Subjective/Events-last exam Pt is bleeding from lateral region of his incision site from an AKA on his left leg. The bleeding began after he did PT today. Denies hitting the leg on anythi ng during PT or after. He states that the area is not painful. Denies having any fever or chills. When asked he denied having any other concerns besides the bleeding. Review of Systems General: No Chills, No Other (fever) Pulmonary: No Dyspnea, No Cough Cardiovascular: No: Chest Pain, Palpitations Gastrointestinal: No: Nausea, Vomiting, Abdominal Pain Musculoskeletal: No: leg pain Neurological: No: Weakness, Numbness Objective Exam Vital Signs Date Time Temp Pulse Resp B/P (MAP) Pulse Ox O2 Delivery O2 Flow Rate FiO2 04/17/21 10:20 Room Air 04/17/21 07:33 36.6 86 16 119/59 (79) 97 Room Air 04/17/21 07:27 97 Room Air 04/16/21 21:00 Room Air 04/16/21 20:17 98 Room Air 04/16/21 20:00 36.8 95 19 103/61 (75) 97 Room Air I & O 04/17/21 07:00 Intake Total 2850 ml Output Total 1975 ml Balance 875 ml Capillary Refill : General Appearance: No Apparent Distress, WD/WN Respiratory: Chest Non Tender, Lungs Clear, Normal Breath Sounds, No Accessory Muscle Use, No Respiratory Distress Cardiovascular: Regular Rate, Rhythm, No Edema, No Murmur Gastrointestinal: non tender, soft Extremity: Non Tender, No Pedal Edema, Other (Left AKA incision site is bleeding from a small area on the lateral aspect. Otherwise the wound appears to be healing well with no signs of infection) Neurologic/Psychiatric: Alert, Normal Mood/Affect Skin: Normal Color, Warm/Dry Lymphatic: No Adenopathy Assessment/Plan Assessment/Plan Assessment/Plan Assessment S/P left AKA. Peripheral vascular disease Diabetes HTN Plan Discontinue anticoagulation medication to allow bleeding to stop. Wound otherwise appears to be healing well. Continue to monitor wound and change dressings ANSON NGUYEN DO 04/17/21 1816: Subjective Time Seen by a Provider: 16:44 Subjective/Events-last exam Pt seen and examined, states his left stump is not really that tender. He is concerned about bleeding. Review of Systems General: No Chills Pulmonary: No Dyspnea, No Cough Cardiovascular: No: Chest Pain, Palpitations, Orthopnea Gastrointestinal: No: Nausea, Vomiting, Abdominal Pain Neurological: No: Weakness, Numbness Objective Exam General Appearance: No Apparent Distress Respiratory: Lungs Clear, Normal Breath Sounds, No Accessory Muscle Use, No Respiratory Distress Cardiovascular: Regular Rate, Rhythm, No Murmur Gastrointestinal: non tender, soft, distended (mild, appears to be body habitus) Extremity: Other (Left AKA incision site has very small ooze from a small area on the lateral aspect. Otherwise the wound appears to be healing well with no signs of infection. Student and nurse state it is very decreased compared to earlier this afternoon.) Assessment/Plan Assessment/Plan Assessment/Plan S/P left AKA with bleed from edges. Peripheral vascular disease Diabetes HTN Plan Discontinue anticoagulation (ASA and Eliquis, will continue the plavix) medication to allow bleeding to stop; also recommend compression of the area. Wound otherwise appears to be healing well. Continue to monitor wound and change dressings Supervisory-Addendum Brief Verification & Attestation Participated in pt care: history, MDM, physical Personally performed: exam, history, MDM, supervision of care Care discussed with: Medical Student Procedures: n/a Verification and Attestation of Medical Student E/M Service A medical student performed and documented this service. I then reviewed and verified all information documented by the medical student and made modifications to such information, when appropriate. I personally performed a physical exam, medical decision making and then discussed any differences between the notes and made revisions as necessary to create one note. Anson Nguyen , 04/17/21 , 18:16 MORE COOPER Apr 17, 2021 14:40 ANSON NGUYEN DO Apr 17, 2021 18:16
[2021-04-17 20:00] VITALS: BP 108/60
[2021-04-17] MEDS: SENNOSIDES 8.6 MG (SENOKOT) TAB PO SCH (22:19)
--- NOTE | 2021-04-18 06:45 | PM&R Progress Note ---
Subjective HPI/CC On Admission Date Seen by Provider: Apr 18, 2021 Time Seen by Provider: 09:00 Subjective/Events-last exam 04/18/2021: Pt is doing about the same Bleeding from the wound so Eliquis and Aspirin are held Midline is helping with the iron infusions Diarrhea is noted, holding the laxative WBC is 15.6 Hgb 9.2 04/17/2021: Pt doing a lot better Bowels moved yesterday Holding Lisinopril and Metoprolol due to hypotension Mild dizziness noted Small nose bleed last night maintained on saline nasal spray Will give amputation society information to him 04/16/2021: Pt doing well Hgb 7.8 Midline will be placed for iron infusions Incision looks good Potassium 3.1 supplementing 20mEq TID 04/15/2021: Patient doing pretty well Lightheadedness noted Iron infusions given for acute blood loss anemia Checking labs tomorrow may need transfusion Stopping Accu-Cheks since they are all normal 04/14/2021: Patient doing well Denies any new issues Pain is well controlled Bowels moved today Iron infusions maintained Midline will be placed 04/13/2021: Patient settling in White count elevated just as it was at [place] No fever Wound care managing dressing Subtle crackle left lower lobe Smoking cessation Encouraged to use incentive spirometer Iron low will start Venofer Review of Systems General: Fatigue, Malaise Objective Exam Vital Signs Vital Signs Date Time Temp Pulse Resp B/P (MAP) Pulse Ox O2 Delivery O2 Flow Rate FiO2 04/18/21 21:08 Room Air 04/18/21 21:05 97 04/18/21 19:59 37.4 95 20 149/71 (97) 04/15/21 07:44 0.00 Capillary Refill : General Appearance: No Apparent Distress, WD/WN, Chronically ill HEENT: PERRL/EOMI, Normal ENT Inspection, Pharynx Normal Neck: Full Range of Motion, Normal Inspection, Non Tender, Supple, Carotid Bruit Respiratory: Chest Non Tender, Lungs Clear, Normal Breath Sounds, No Accessory Muscle Use, No Respiratory Distress Cardiovascular: Regular Rate, Rhythm, No Edema, No Gallop, No JVD, No Murmur, Normal Peripheral Pulses Gastrointestinal: Normal Bowel Sounds, No Organomegaly, No Pulsatile Mass, Non Tender, Soft Back: Normal Inspection, No CVA Tenderness, No Vertebral Tenderness Extremity: Normal Capillary Refill, Normal Inspection, Normal Range of Motion, Non Tender, No Calf Tenderness, No Pedal Edema, Other (Left AKA) Neurologic/Psychiatric: Alert, Oriented x3, No Motor/Sensory Deficits, Normal Mood/Affect, Abnormal Gait, Motor Weakness (Generalized) Skin: Normal Color, Warm/Dry Lymphatic: No Adenopathy Results/Procedures Lab Laboratory Tests 04/18/21 06:50 Patient resulted labs reviewed. FIM Transfers Therapy Code Descriptions/Definitions Functional [place] Measure: 0=Not Assessed/NA 4=Minimal Assistance 1=Total Assistance 5=Supervision or Setup 2=Maximal Assistance 6=Modified [place] 3=Moderate Assistance 7=Complete IndependenceSCALE: Activities may be completed with or without assistive devices. 3-Wmhzgrqqdh-xhgptxb completes the activity by him/herself with no assistance from a helper. 5-Set-up or Clean-up Assistance-helper sets up or cleans up; patient completes activity. [place] assists only prior to or following the activity. 4-Supervision or Touching Assistance-helper provides verbal cues and/or touching/steadying and/or contact guard assistance as patient completes activity. Assistance may be provided throughout the activity or intermittently. 3-Partial/Moderate Assistance-helper does LESS THAN HALF the effort. [place] lifts, holds or supports trunk or limbs, but provides less than half the effort. 2-Substantial/Maximal Assistance-helper does MORE THAN HALF the effort. [place] lifts or holds trunk or limbs and provides more than half the effort. 8-Koylgytzz-iuomjp does ALL the effort. Patient does none of the effort to complete the activity. Or, the assistance of 2 or more helpers is required for the patient to complete the activity. If activity was not attempted, code reason: 7-Patient Refused. 9-Not Applicable-not attempted and the patient did not perform the activity before the current illness, exacerbation or injury. 10-Not Attempted due to Environmental Limitations-(lack of equipment, weather restraints, etc.). 88-Not Attempted due to Medical Conditions or Safety Concerns. Roll Left to Right (QC): 5 Sit to Lying (QC): 5 Sit to Stand (QC): 4 Chair/Cku-pt-Hrinr Xfer(QC): 4 Car Transfer (QC): 4 Gait Training Does the Patient Walk?: Yes Distance: 12'x3 Walk 10 feet (QC): 4 Walk 50 ft with 2 Turns(QC): 88 Walk 150 ft (QC): 88 Walking 10ft/uneven surface-QC: 88 Gait Persons Needed: 1 Gait Assistive Device: Parallel Bars Wheelchair Training Does the Pt Use a Wheelchair?: Yes Distance: 150' Wheel 50 ft with 2 turns (QC): 6 Wheel 150 ft (QC): 6 Type of Wheelchair: Manual Stair Training 1 Step (curb) (QC): 88 4 Steps (QC): 88 12 Steps (QC): 88 Balance Picking up an Object (QC): 4 ADL-Treatment Eating (QC): 6 Oral Hygiene (QC): 6 Bathing Location: L Arm, R Arm, L Lower Leg (including foot), R Lower Leg (including foot) (AKA), Chest, Abdomen, Perineal Area Shower/Bathe Self (QC): 3 Upper Body Dressing (QC): 5 Lower Body Dressing (QC): 4 On/Off Footwear (QC): 2 Toileting Hygiene (QC): 3 (Chen care completed in sitting. Min a only to ensure thoroughness due to bandage on buttocks. 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 Previous smoker Right lower extremity wounds Leukocytosis due to stress from amputation Diabetes Hypertension Acute blood loss anemia with iron deficiency Left lower lobe crackle on 04/13/2021 Plan: Supportive care Rehab protocol Pain meds 04/13/2021: Incentive spirometer Iron infusion 04/14/21: Iron infusions B12 supplement 04/15/2021: Check labs in the morning Maintain iron infusion 04/16/2021: Supportive care Iron infusions Midline placement 04/17/2021: Iron infusions Amputation site information for support 04/18/2021: Hold anticoagulants due to bleeding Supportive care (1) Above knee amputation of left lower extremity CHRISTOPHE HERNANDEZ DO Apr 18, 2021 06:45
[2021-04-18] MEDS: CATHETER FLUSH 10 ML SYR IV SCH ×3 (06:52→19:53)
[2021-04-18] MEDS: FUROSEMIDE 20 MG (LASIX) TAB PO SCH ×2 (06:52→17:50)
[2021-04-18 07:07] LABS: HEMATOCRIT 28 % (40-54); HEMOGLOBIN 9.2 g/dL (13.3-17.7); MEAN CORPUSCULAR HEMOGLOBIN 32 pg (25-34); MEAN CORPUSCULAR HGB CONC 33 g/dL (32-36); MEAN CORPUSCULAR VOLUME 96 fL (80-99); MEAN PLATELET VOLUME 9.8 fL (9.0-12.2); PLATELET COUNT 721 10^3/uL (130-400); WHITE BLOOD COUNT 15.6 10^3/uL (4.3-11.0)
--- NOTE | 2021-04-18 07:48 | Progress Note - Surgery ---
MORE COOPER 04/18/21 0748: Subjective Date Seen by a Provider: Apr 18, 2021 Time Seen by a Provider: 07:01 Subjective/Events-last exam Pt reports that he is doing well this morning. States that he thinks the bleeding has stopped from his incision site on left thigh. When asked he denied having any other concerns. Review of Systems General: No Chills, No Night Sweats HEENT: No Head Aches, No Visual Changes Pulmonary: No Dyspnea, No Cough Cardiovascular: No: Chest Pain, Palpitations Gastrointestinal: No: Nausea, Vomiting, Abdominal Pain Musculoskeletal: No: back pain, leg pain Neurological: No: Numbness, Confusion Objective Exam Vital Signs Date Time Temp Pulse Resp B/P (MAP) Pulse Ox O2 Delivery O2 Flow Rate FiO2 04/17/21 21:23 97 Room Air 04/17/21 21:00 Room Air 04/17/21 20:00 36.9 94 18 108/60 (76) 95 Room Air 04/17/21 10:20 Room Air I & O 04/18/21 07:00 Intake Total 1120 ml Output Total 3175 ml Balance -2055 ml Capillary Refill : General Appearance: No Apparent Distress, WD/WN HEENT: PERRL/EOMI; No Photophobia Neck: Non Tender, Supple Respiratory: Lungs Clear, Normal Breath Sounds, No Accessory Muscle Use, No Respiratory Distress Cardiovascular: Regular Rate, Rhythm, No Murmur Gastrointestinal: non tender, soft Extremity: Normal Capillary Refill, Non Tender, No Calf Tenderness, No Pedal Edema, Other (Left AKA incision site that was bleeding yesterday from small area on the lateral aspect has stopped but bandage was still bloody. Otherwise the wound appears to be healing well with no signs of infection) Neurologic/Psychiatric: Alert, Oriented x3, Normal Mood/Affect Skin: Normal Color, Warm/Dry Lymphatic: No Adenopathy Results Lab Laboratory Tests 04/18/21 06:50: White Blood Count 15.6H, Red Blood Count 2.90L, Hemoglobin 9.2L, Hematocrit 28L, Mean Corpuscular Volume 96, Mean Corpuscular Hemoglobin 32, Mean Corpuscular Hemoglobin Concent 33, Red Cell Distribution Width 16.1H, Platelet Count 721H, Mean Platelet Volume 9.8 Assessment/Plan Assessment/Plan Assessment/Plan S/P left AKA with bleed from edges. Peripheral vascular disease Diabetes HTN Plan Bleeding has stopped but wound dressings were still bloody. Discontinue anticoagulation (ASA and Eliquis, will continue the plavix) medication for another day. recommend compression of the area. Wound otherwise appears to be healing well. Continue to monitor wound and change dressings ANSON NGUYEN DO 04/18/21 1441: Subjective Time Seen by a Provider: 12:35 Subjective/Events-last exam Pt seen and examined, states he has no pain and thinks the bleeding has stopped. It did bleed a little this am. Review of Systems General: No Chills, No Night Sweats Pulmonary: No Dyspnea, No Cough Cardiovascular: No: Chest Pain, Palpitations Gastrointestinal: No: Nausea, Vomiting, Abdominal Pain Objective Exam General Appearance: No Apparent Distress, WD/WN HEENT: PERRL/EOMI Respiratory: Lungs Clear, Normal Breath Sounds, No Accessory Muscle Use, No Respiratory Distress Cardiovascular: Regular Rate, Rhythm, No Murmur Gastrointestinal: non tender, soft Extremity: Other (Left AKA incision site that was bleeding yesterday from small area on the lateral aspect has stopped but bandage was still bloody. Otherwise the wound appears to be healing well with no signs of infection) Neurologic/Psychiatric: Alert, Oriented x3 Assessment/Plan Assessment/Plan Assessment/Plan S/P left AKA with bleed from edges. Peripheral vascular disease Diabetes HTN Plan Bleeding has stopped but wound dressings were still bloody. Discontinue anticoagulation (ASA and Eliquis, will continue the plavix) medication for another day. recommend compression of the area. Wound otherwise appears to be healing well. Continue to monitor wound and change dressings Supervisory-Addendum Brief Verification & Attestation Participated in pt care: history, MDM, physical Personally performed: exam, history, MDM, supervision of care Care discussed with: Medical Student Procedures: n/a Verification and Attestation of Medical Student E/M Service A medical student performed and documented this service. I then reviewed and verified all information documented by the medical student and made modifications to such information, when appropriate. I personally performed a physical exam, medical decision making and then discussed any differences between the notes and made revisions as necessary to create one note. Anson Nguyen , 04/18/21 , 14:41 MORE COOPER Apr 18, 2021 07:48 ANSON NGUYEN DO Apr 18, 2021 14:41
[2021-04-18 07:53] VITALS: BP 114/77
[2021-04-18] MEDS: DOCUSATE SODIUM 100 MG (COLACE) CAP PO SCH ×2 (08:01→19:23)
[2021-04-18] MEDS: polyethylene glycoL POWDER 17 GM (MIRALAX) PACK PO SCH ×2 (08:02→19:23)
[2021-04-18] MEDS: SENNA W/DOCUSATE (SENOKOT S) TABLET PO SCH ×2 (08:02→19:23)
[2021-04-18] MEDS: metFORMIN 500 MG (GLUCOPHAGE) TAB PO SCH ×2 (08:22→19:53)
[2021-04-18] MEDS: KCL 10 MEQ TAB (MICRO K) PO SCH ×3 (08:22→17:50)
[2021-04-18] MEDS: EMPAGLIFLOZIN 10 MG TABLET (JARDIANCE) PO SCH (08:22)
[2021-04-18] MEDS: MULTIVIT W/MINERALS TAB (THERAGRAN M) PO SCH (08:22)
[2021-04-18] MEDS: CLOPIDOGREL 75 MG (PLAVIX) TABLET PO SCH (08:22)
[2021-04-18] MEDS: PANTOPRAZOLE 40 MG (PROTONIX) TAB PO SCH (08:22)
[2021-04-18] MEDS: DAKIN'S 1/4 STRENGTH (0.125%) 237 ML BTL TOP SCH (08:24)
--- NOTE | 2021-04-18 08:42 | Occupational Ther Daily Note ---
OT Current Status-Daily Note Subjective Pt alert, sitting up in bed. Pt c/o gas pain and anxious about stump bleeding again. Pt stated that he would participate in therapy though in a limited capacity due to anxiety of bleeding. LIZARRAGA assured pt that during therapy tasks will be taken slow and making sure not to aggravate incision on stump. Mental Status/Objective Patient Orientation: Person, Place, Time, Situation Attachments: IV (PICC) ADL-Treatment Pt agrees to shower. Pt requests to use hospital gown for upper body dressing so that it would be easier between treatments. Due to pt's dressing on stump coming off, pants were not donned after shower. SBA for all transfers, pt using hand holds/grabbars to complete SPT. CGA to manipulate pants for toileting and leaning toward L side to cleanse after toileting, assist given to assure cleanliness, pt was thorough. Pt completed shower sitting on shower bench using grabbars and hand held shower to complete all areas except R foot, assist given to cleanse foot. Pt educated on how to use LH sponge to cleanse foot. Sitting at sink, pt completed oral care independently. Assist to don sock, pt doffed by self. Per previous therapy sessions, pt able to don pants over R foot and L stump then CGA in standing while pt held onto grabbar/stable surface to hike over hips then after set up pt able to don/doff shirt by self. After session, pt lying in bed with call light/phone in reach. Nrsg in room to redress stump and administer daily meds. All needs met. Therapy Code Descriptions/Definitions Functional [place] Measure: 0=Not Assessed/NA 4=Minimal Assistance 1=Total Assistance 5=Supervision or Setup 2=Maximal Assistance 6=Modified [place] 3=Moderate Assistance 7=Complete IndependenceSCALE: Activities may be completed with or without assistive devices. 6-Pvslgbvvxi-dnhxxdd completes the activity by him/herself with no assistance from a helper. 5-Set-up or Clean-up Assistance-helper sets up or cleans up; patient completes activity. [place] assists only prior to or following the activity. 4-Supervision or Touching Assistance-helper provides verbal cues and/or touching/steadying and/or contact guard assistance as patient completes activity. Assistance may be provided throughout the activity or intermittently. 3-Partial/Moderate Assistance-helper does LESS THAN HALF the effort. [place] lifts, holds or supports trunk or limbs, but provides less than half the effort. 2-Substantial/Maximal Assistance-helper does MORE THAN HALF the effort. [place] lifts or holds trunk or limbs and provides more than half the effort. 0-Fzswlybuu-kgjzls does ALL the effort. Patient does none of the effort to complete the activity. Or, the assistance of 2 or more helpers is required for the patient to complete the activity. If activity was not attempted, code reason: 7-Patient Refused. 9-Not Applicable-not attempted and the patient did not perform the activity before the current illness, exacerbation or injury. 10-Not Attempted due to Environmental Limitations-(lack of equipment, weather restraints, etc.). 88-Not Attempted due to Medical Conditions or Safety Concerns. Eating (QC): 6 Oral Hygiene (QC): 6 Shower/Bathe Self (QC): 3 Upper Body Dressing (QC): 5 Lower Body Dressing (QC): 4 On/Off Footwear: 3 Toileting Hygiene (QC): 4 Toilet Transfer (QC): 4 OT Short Term Goals Short Term Goals Time Frame: Apr 25, 2021 Toileting hygiene: 4 Shower/bathe self: 5 Upper body dressin Lower body dressin OT [facility] Goals [facility] Goals Time Frame: May 04, 2021 Eating (QC): 6 Oral Hygiene (QC): 6 Toileting Hygiene (QC): 6 Shower/Bathe Self (QC): 6 Upper Body Dressing (QC): 6 Lower Body Dressing (QC): 6 On/Off Footwear (QC): 6 Additional Goals: 1-Demonstrate ADL Tasks, 2-Verbalize Understanding, 3- ImproveStrength/Deniz 1=Demonstrate adherence to instructed precautions during ADL tasks. 2=Patient will verbalize/demonstrate understanding of assistive devices/modifications for ADL. 3=Patient will improve strength/tolerance for activity to enable patient to perform ADL's. OT Education/Plan Problem List/Assessment Assessment: Decreased Activ Tolerance, Impaired Funct Balance, Impaired Self-Care Skills Discharge Recommendations Plan/Recommendations: Continue POC Treatment Plan/Plan of Care Patient would benefit from OT for education, treatment and training to promote independence in ADL's, mobility, safety and/or upper extremity function for ADL's. Plan of Care: ADL Retraining, Functional Mobility, Group Exercise/Act as Ind, UE Funct Exercise/Act Treatment Duration: May 04, 2021 Frequency: At least 5 of 7 days/Wk (IRF) Estimated Hrs Per Day: 1.5 hours per day Agreement: Yes Rehab Potential: Fair Time/GCodes Start Time: 07:15 Stop Time: 08:45 Total Time Billed (hr/min): 90 Billed Treatment Time 1 visit-ADL 6 (90 min) FLORENCE CHIRINOS Apr 18, 2021 08:42
[2021-04-18] MEDS: RT--FLUTICASONE/SALMETEROL 113-14 (AIRDUO RespiCLICK) IH SCH ×2 (08:52→21:05)
[2021-04-18] MEDS: oxyCODONE/APAP 7.5-325 MG (PERCOCET 7.5) TABLET PO PRN ×3 (09:23→23:53)
--- NOTE | 2021-04-18 09:40 | Physical Therapy Daily Note ---
PT Daily Note-Current Subjective Pt. in bed, explains that he has had an incident with incisional bleeding , the nurse yesterday addressed it , wrapped it tightly and it was better until this morning when he was up for a OT. Pt. now in bed with residual limb elevated . FERMIN wrap applied tightly which pt. states is now causing increased pain " but I understand why we have to do it" Requests pain meds from nurse. "I need to stay in bed for this Rx" Appearance Left residual limb dressed and elevated on pillow, chucks underneath , fresh blood noted on 3 small 1"x1" area posteriorly and one anteriorly through the fermin wrap Mental Status Patient Orientation: Normal For Age Transfers SCALE: Activities may be completed with or without assistive devices. 1-Vnlypqtqtw-bafczph completes the activity by him/herself with no assistance from a helper. 5-Set-up or Clean-up Assistance-helper sets up or cleans up; patient completes activity. [place] assists only prior to or following the activity. 4-Supervision or Touching Assistance-helper provides verbal cues and/or touching/steadying and/or contact guard assistance as patient completes activity. Assistance may be provided throughout the activity or intermittently. 3-Partial/Moderate Assistance-helper does LESS THAN HALF the effort. [place] lifts, holds or supports trunk or limbs, but provides less than half the effort. 2-Substantial/Maximal Assistance-helper does MORE THAN HALF the effort. [place] lifts or holds trunk or limbs and provides more than half the effort. 3-Bziqpuyow-kknqft does ALL the effort. Patient does none of the effort to complete the activity. Or, the assistance of 2 or more helpers is required for the patient to complete the activity. If activity was not attempted, code reason: 7-Patient Refused. 9-Not Applicable-not attempted and the patient did not perform the activity before the current illness, exacerbation or injury. 10-Not Attempted due to Environmental Limitations-(lack of equipment, weather restraints, etc.). 88-Not Attempted due to Medical Conditions or Safety Concerns. Roll Left & Right (QC): 6 Exercises Supine Ex: Ankle pumps (right), Quad Set (right), Rolling, Glut sets, Heel Slides (right), Short Arc Quads (right), Straight leg raise (right), Hip abd/add (right) Supine Reps: 20 Treatments ther ex LEs and protection of L residual incision site secondary to break through bleeding Assessment Current Status: Fair Progress pain and bleeding limit pt participation today. Pt. for in bed only activities with RLE PT Short Term Goals Short Term Goals Time Frame: Apr 19, 2021 Roll Left & Right: 6 Sit to lyin Lying to sitting on side of be: 6 Sit to stand: 4 Chair/zxa-yr-wqjkl transfer: 4 (SBA) Walk 10 feet: 4 Walk 50 feet with two turns: 4 PT Assisted Goals Gun Sealing Machine Operator Goals PT Gun Sealing Machine Operator Goals Time Frame: May 03, 2021 Roll Left & Right (QC): 6 Sit to Lying (QC): 6 Lying-Sitting on Side/Bed(QC): 6 Sit to Stand (QC): 5 Chair/Gmq-ov-Ogabs Xfer(QC): 5 Toilet Transfer (QC): 5 Car Transfer (QC): 5 Does the Patient Walk: Yes Walk 10 feet (QC): 5 Walk 50ft with 2 Turns (QC): 5 Walk 150 ft (QC): 88 Walking 10ft on Uneven Surface: 4 1 Step (curb) (QC): 4 4 Steps (QC): 4 12 Steps (QC): 88 Picking up an Object (QC): 5 Wheel 50 feet with 2 turns (QC: 6 Wheel 150 feet: 6 PT Plan Treatment/Plan Treatment Plan: Continue Plan of Care Treatment Plan: Bed Mobility, Education, Functional Activity Deniz, Functional Strength, Group Therapy, Gait, Safety, Therapeutic Exercise, Transfers Treatment Duration: May 03, 2021 Frequency: At least 5 of 7 days/Wk (IRF) Estimated Hrs Per Day: 1.5 hours per day Patient and/or Family Agrees t: Yes Safety Risks/Education Patient Education: Correct Positioning, Disease Process, Safety Issues Teaching Recipient: Patient Teaching Methods: Demonstration, Discussion Response to Teaching: Verbalize Understanding, Return Demonstration, Reinforcement Needed Time/GCodes Time In: 905 Time Out: 935 Total Billed Treatment Time: 30 Total Billed Treatment 1,EX30m ABE KHAN DIRECTOR CASE Apr 18, 2021 09:40
--- NOTE | 2021-04-18 12:28 | Physical Therapy Daily Note ---
PT Daily Note-Current Subjective Pt reports that his leg is still hurting and bleeding. He requests not to get out of bed until it settles down. Transfers SCALE: Activities may be completed with or without assistive devices. 4-Qzcydoficw-qxfpmwm completes the activity by him/herself with no assistance from a helper. 5-Set-up or Clean-up Assistance-helper sets up or cleans up; patient completes activity. [place] assists only prior to or following the activity. 4-Supervision or Touching Assistance-helper provides verbal cues and/or touching/steadying and/or contact guard assistance as patient completes activity. Assistance may be provided throughout the activity or intermittently. 3-Partial/Moderate Assistance-helper does LESS THAN HALF the effort. [place] lifts, holds or supports trunk or limbs, but provides less than half the effort. 2-Substantial/Maximal Assistance-helper does MORE THAN HALF the effort. [place] lifts or holds trunk or limbs and provides more than half the effort. 0-Wqewzvpqn-dcvgev does ALL the effort. Patient does none of the effort to c omplete the activity. Or, the assistance of 2 or more helpers is required for the patient to complete the activity. If activity was not attempted, code reason: 7-Patient Refused. 9-Not Applicable-not attempted and the patient did not perform the activity before the current illness, exacerbation or injury. 10-Not Attempted due to Environmental Limitations-(lack of equipment, weather restraints, etc.). 88-Not Attempted due to Medical Conditions or Safety Concerns. Exercises Supine Ex: Ankle pumps, Quad Set, Glut sets, Heel Slides, Knee to chest, Straight leg raise, Hip abd/add Supine Reps: 20 Assessment Active assist to hit end range on LE exercise. Performed 2 sets of 10 reps (B). PT Short Term Goals Short Term Goals Time Frame: Apr 19, 2021 Roll Left & Right: 6 Sit to lyin Lying to sitting on side of be: 6 Sit to stand: 4 Chair/ebv-zt-jyzay transfer: 4 (SBA) Walk 10 feet: 4 Walk 50 feet with two turns: 4 PT [employer] Safety Program Coordinator Goals [employer] Safety Program Coordinator Goals PT Prison Goals Time Frame: May 03, 2021 Roll Left & Right (QC): 6 Sit to Lying (QC): 6 Lying-Sitting on Side/Bed(QC): 6 Sit to Stand (QC): 5 Chair/Wbj-cz-Iknnm Xfer(QC): 5 Toilet Transfer (QC): 5 Car Transfer (QC): 5 Does the Patient Walk: Yes Walk 10 feet (QC): 5 Walk 50ft with 2 Turns (QC): 5 Walk 150 ft (QC): 88 Walking 10ft on Uneven Surface: 4 1 Step (curb) (QC): 4 4 Steps (QC): 4 12 Steps (QC): 88 Picking up an Object (QC): 5 Wheel 50 feet with 2 turns (QC: 6 Wheel 150 feet: 6 PT Plan Treatment/Plan Treatment Plan: Continue Plan of Care Treatment Plan: Bed Mobility, Education, Functional Activity Deniz, Functional Strength, Group Therapy, Gait, Safety, Therapeutic Exercise, Transfers Treatment Duration: May 03, 2021 Frequency: At least 5 of 7 days/Wk (IRF) Estimated Hrs Per Day: 1.5 hours per day Patient and/or Family Agrees t: Yes Time/GCodes Time In: 930 Time Out: 1000 Total Billed Treatment Time: 30 Total Billed Treatment visit, ex 30 minutes KATHLEEN HIDALGO PT Apr 18, 2021 12:28
[2021-04-18] MEDS: IRON SUCROSE 200 MG/10 ML (VENOFER) VIAL IV SCH (13:56)
--- NOTE | 2021-04-18 15:05 | Physical Therapy Daily Note ---
PT Daily Note-Current Subjective Pt reports he is ready to be out of bed for some w/c activity. Transfers SCALE: Activities may be completed with or without assistive devices. 6-Ujnnoyjdux-izfohew completes the activity by him/herself with no assistance from a helper. 5-Set-up or Clean-up Assistance-helper sets up or cleans up; patient completes activity. [place] assists only prior to or following the activity. 4-Supervision or Touching Assistance-helper provides verbal cues and/or touching/steadying and/or contact guard assistance as patient completes activit y. Assistance may be provided throughout the activity or intermittently. 3-Partial/Moderate Assistance-helper does LESS THAN HALF the effort. [place] lifts, holds or supports trunk or limbs, but provides less than half the effort. 2-Substantial/Maximal Assistance-helper does MORE THAN HALF the effort. [place] lifts or holds trunk or limbs and provides more than half the effort. 6-Uhdprugcc-cqsive does ALL the effort. Patient does none of the effort to complete the activity. Or, the assistance of 2 or more helpers is required for the patient to complete the activity. If activity was not attempted, code reason: 7-Patient Refused. 9-Not Applicable-not attempted and the patient did not perform the activity before the current illness, exacerbation or injury. 10-Not Attempted due to Environmental Limitations-(lack of equipment, weather restraints, etc.). 88-Not Attempted due to Medical Conditions or Safety Concerns. Roll Left & Right (QC): 6 Sit to Lying (QC): 6 Lying to Sitting/Side of Bed(Q: 6 Chair/New-dm-[place] Xfer(QC): 4 Wheelchair Training Wheel 50 ft with 2 turns (QC): 6 Wheel 150 ft (QC): 6 Type of Wheelchair: Manual propel w/c 250ft x 6 trials with short rests in between. Educated on turns, opening doors, and w/c safety. Exercises Seated Therapy Exercises: Ankle pumps, Long arc quads, Hip flexion, Kicking activity, Hip abd/add Seated Reps: 15 Assessment Current Status: Good Progress (Pt has good control of stump pain and bleeding which gave patient improved confidence with transfers and out of bed activity. ) Pt progressing and will benefit from continued therapy. PT Short Term Goals Short Term Goals Time Frame: Apr 19, 2021 Roll Left & Right: 6 Sit to lyin Lying to sitting on side of be: 6 Sit to stand: 4 Chair/ygm-kw-vajju transfer: 4 (SBA) Walk 10 feet: 4 Walk 50 feet with two turns: 4 PT [facility] Goals [facility] Goals PT Cellar Pumper Goals Time Frame: May 03, 2021 Roll Left & Right (QC): 6 Sit to Lying (QC): 6 Lying-Sitting on Side/Bed(QC): 6 Sit to Stand (QC): 5 Chair/Qpm-pt-Dhowp Xfer(QC): 5 Toilet Transfer (QC): 5 Car Transfer (QC): 5 Does the Patient Walk: Yes Walk 10 feet (QC): 5 Walk 50ft with 2 Turns (QC): 5 Walk 150 ft (QC): 88 Walking 10ft on Uneven Surface: 4 1 Step (curb) (QC): 4 4 Steps (QC): 4 12 Steps (QC): 88 Picking up an Object (QC): 5 Wheel 50 feet with 2 turns (QC: 6 Wheel 150 feet: 6 PT Plan Treatment/Plan Treatment Plan: Continue Plan of Care Treatment Plan: Bed Mobility, Education, Functional Activity Deniz, Functional Strength, Group Therapy, Gait, Safety, Therapeutic Exercise, Transfers Treatment Duration: May 03, 2021 Frequency: At least 5 of 7 days/Wk (IRF) Estimated Hrs Per Day: 1.5 hours per day Patient and/or Family Agrees t: Yes Time/GCodes Time In: 1400 Time Out: 1430 Total Billed Treatment Time: 30 Total Billed Treatment visit, FA 15 min, EX 15 min KATHLEEN HIDALGO PT Apr 18, 2021 15:05
[2021-04-18] MEDS: SENNOSIDES 8.6 MG (SENOKOT) TAB PO SCH (19:23)
[2021-04-18 19:59] VITALS: BP 149/71
[2021-04-19] MEDS: CATHETER FLUSH 10 ML SYR IV SCH ×3 (06:06→20:11)
[2021-04-19] MEDS: FUROSEMIDE 20 MG (LASIX) TAB PO SCH ×2 (06:06→17:04)
--- NOTE | 2021-04-19 07:07 | Progress Note - Surgery ---
MORE COOPER 04/19/21 0706: Subjective Date Seen by a Provider: Apr 19, 2021 Time Seen by a Provider: 06:41 Subjective/Events-last exam Pt reports that he is doing well today. Believes that his bleeding has improved from his incision site from an AKA. Denies having any fevers or chills. When as ked he denies having any other concerns. Review of Systems General: No Chills, No Other (fever) HEENT: No Head Aches, No Visual Changes Pulmonary: No Dyspnea, No Cough Cardiovascular: No: Chest Pain, Palpitations Gastrointestinal: No: Nausea, Vomiting, Abdominal Pain Musculoskeletal: No: back pain, leg pain Neurological: No: Weakness, Numbness Objective Exam Vital Signs Date Time Temp Pulse Resp B/P (MAP) Pulse Ox O2 Delivery O2 Flow Rate FiO2 04/18/21 21:08 Room Air 04/18/21 21:05 97 Room Air 04/18/21 19:59 37.4 95 20 149/71 (97) 98 Room Air 04/18/21 09:00 Room Air 04/18/21 08:52 98 Room Air 04/18/21 07:53 36.4 95 16 114/77 (89) 96 Room Air I & O 04/19/21 06:59 Intake Total 2300 ml Output Total 3650 ml Balance -1350 ml Capillary Refill : General Appearance: No Apparent Distress, WD/WN HEENT: PERRL/EOMI; No Photophobia Neck: Non Tender, Supple Respiratory: Lungs Clear, Normal Breath Sounds, No Accessory Muscle Use, No Respiratory Distress Cardiovascular: Regular Rate, Rhythm, No Murmur, Normal Peripheral Pulses Gastrointestinal: non tender, soft Extremity: Normal Capillary Refill, Non Tender, No Calf Tenderness, No Pedal Edema, Other (Bleeding from lateral aspect of incision site from AKA. Bleeding is worse than it was yesterday. 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 Peripheral vascular disease Diabetes HTN Plan Bleeding has started again from lateral incision site of AKA. Wound dressings were bloody. Discontinue anticoagulation (ASA and Eliquis, will continue the plavix) medication. recommend compression of the area. Wound otherwise appears to be healing well. Continue to monitor wound and change dressings ANSON NGUYEN DO 04/19/21 1313: Subjective Time Seen by a Provider: 10:19 Subjective/Events-last exam Pt seen and examined, states he is doing well and no bleeding. Review of Systems General: No Chills Pulmonary: No Dyspnea, No Cough Cardiovascular: No: Chest Pain, Palpitations Gastrointestinal: No: Nausea, Vomiting, Abdominal Pain Objective Exam General Appearance: No Apparent Distress, WD/WN Respiratory: Lungs Clear, Normal Breath Sounds, No Accessory Muscle Use, No Respiratory Distress Cardiovascular: Regular Rate, Rhythm, No Murmur Gastrointestinal: non tender, soft Extremity: Other (Left AKA is wrapped and no blood visible on bandages) Assessment/Plan Assessment/Plan Assessment/Plan S/P left AKA with bleed from edges. Peripheral vascular disease Diabetes HTN Plan Pt was doing well and we had discussed next step if bleeding started again; stop Plavix and hold compression. He understood and thought it should be ok. However, I got a call around 11:15 from the nurse stating she took bandage down because it was coming unwrapped and he was going to PT. As soon as she took bandage off a clot came off and it started oozing; she did think it was a darker color and "probably old blood". I told her to hold compression and stop Plavix; exploring would be a bad idea and most likely only cause worse bleeding plus probably wouldn't find source. She understood. Supervisory-Addendum Brief Verification & Attestation Participated in pt care: history, MDM, physical Personally performed: exam, history, MDM, supervision of care Care discussed with: Medical Student Procedures: n/a Verification and Attestation of Medical Student E/M Service A medical student performed and documented this service. I then reviewed and verified all information documented by the medical student and made modifications to such information, when appropriate. I personally performed a physical exam, medical decision making and then discussed any differences between the notes and made revisions as necessary to create one note. Anson Nguyen , 04/19/21 , 13:12 MORE COOPER Apr 19, 2021 07:06 ANSON NGUYEN DO Apr 19, 2021 13:13
[2021-04-19 07:33] VITALS: BP 131/72
[2021-04-19] MEDS: metFORMIN 500 MG (GLUCOPHAGE) TAB PO SCH ×2 (08:05→20:11)
[2021-04-19] MEDS: CLOPIDOGREL 75 MG (PLAVIX) TABLET PO SCH (08:06)
[2021-04-19] MEDS: EMPAGLIFLOZIN 10 MG TABLET (JARDIANCE) PO SCH (08:06)
[2021-04-19] MEDS: MULTIVIT W/MINERALS TAB (THERAGRAN M) PO SCH (08:06)
[2021-04-19] MEDS: DAKIN'S 1/4 STRENGTH (0.125%) 237 ML BTL TOP SCH (08:06)
[2021-04-19] MEDS: PANTOPRAZOLE 40 MG (PROTONIX) TAB PO SCH (08:06)
[2021-04-19] MEDS: KCL 10 MEQ TAB (MICRO K) PO SCH ×3 (08:06→17:04)
[2021-04-19] MEDS: polyethylene glycoL POWDER 17 GM (MIRALAX) PACK PO SCH ×2 (08:09→19:52)
[2021-04-19] MEDS: oxyCODONE/APAP 7.5-325 MG (PERCOCET 7.5) TABLET PO PRN ×4 (08:09→23:08)
[2021-04-19] MEDS: DOCUSATE SODIUM 100 MG (COLACE) CAP PO SCH ×2 (08:09→19:52)
[2021-04-19] MEDS: SENNA W/DOCUSATE (SENOKOT S) TABLET PO SCH ×2 (08:09→19:52)
--- NOTE | 2021-04-19 10:01 | Occupational Ther Daily Note ---
OT Current Status-Daily Note Subjective Pt sleeping in bed, woke to name but very drowsy. Pt agrees to therapy. Pt anxious about stump bleeding again. Mental Status/Objective Patient Orientation: Person, Place, Time, Situation Attachments: IV (PICC) ADL-Treatment Pt declines shower today, stated had one yesterday. All transfers SBA using hand holds/grabbars. Using grabbar or leaning on wall to stabilize self while hiking pants during toileting. Pt leans toward L side to cleanse self after BM, pt anxious that he is not fully clean and requests to check for thoroughness, pt was thorough. Sitting at sink, pt able to complete oral care and grooming independently. Pt able to doff R sock by self then uses sock aide to don sock over foot then is able to bend down and adjust. During session, discussed different options that pt may encounter with new apartment when found. Educated pt on tub transfer bench and transfer, BSC and grabbars. Pt verbalized understanding. Pt stated that he was shown a Facebook group for amputees to look for different avenues to acquire equipment and support. Therapy Code Descriptions/Definitions Functional [place] Measure: 0=Not Assessed/NA 4=Minimal Assistance 1=Total Assistance 5=Supervision or Setup 2=Maximal Assistance 6=Modified [place] 3=Moderate Assistance 7=Complete IndependenceSCALE: Activities may be completed with or without assistive devices. 1-Fwvamiecxi-xieznmd completes the activity by him/herself with no assistance from a helper. 5-Set-up or Clean-up Assistance-helper sets up or cleans up; patient completes activity. [place] assists only prior to or following the activity. 4-Supervision or Touching Assistance-helper provides verbal cues and/or touching/steadying and/or contact guard assistance as patient completes activity. Assistance may be provided throughout the activity or intermittently. 3-Partial/Moderate Assistance-helper does LESS THAN HALF the effort. [place] l ifts, holds or supports trunk or limbs, but provides less than half the effort. 2-Substantial/Maximal Assistance-helper does MORE THAN HALF the effort. [place] lifts or holds trunk or limbs and provides more than half the effort. 7-Brqgzgvan-qvwytr does ALL the effort. Patient does none of the effort to complete the activity. Or, the assistance of 2 or more helpers is required for t he patient to complete the activity. If activity was not attempted, code reason: 7-Patient Refused. 9-Not Applicable-not attempted and the patient did not perform the activity before the current illness, exacerbation or injury. 10-Not Attempted due to Environmental Limitations-(lack of equipment, weather restraints, etc.). 88-Not Attempted due to Medical Conditions or Safety Concerns. Oral Hygiene (QC): 6 Upper Body Dressing (QC): 5 On/Off Footwear: 5 Toileting Hygiene (QC): 4 Toilet Transfer (QC): 4 Other Treatment Pt completed 12 min of arm bike with 20 romero resistance, no breaks, to increase strength and activity tolerance for daily functional tasks. Pt then completed a B UE tasks with 1# wt on wrists to increase overall strength of B UE. Pt then propelled w/c to find cones at varying heights to work on mobility and sitting balance while retrieving them. After session, pt sitting on toilet with call light in reach. Nrsg aware of position. All needs met. OT Short Term Goals Short Term Goals Time Frame: Apr 25, 2021 Toileting hygiene: 4 Shower/bathe self: 5 Upper body dressin Lower body dressin OT Retirement Goals Retirement Goals Time Frame: May 04, 2021 Eating (QC): 6 Oral Hygiene (QC): 6 Toileting Hygiene (QC): 6 Shower/Bathe Self (QC): 6 Upper Body Dressing (QC): 6 Lower Body Dressing (QC): 6 On/Off Footwear (QC): 6 Additional Goals: 1-Demonstrate ADL Tasks, 2-Verbalize Understanding, 3- ImproveStrength/Deniz 1=Demonstrate adherence to instructed precautions during ADL tasks. 2=Patient will verbalize/demonstrate understanding of assistive devices/modifications for ADL. 3=Patient will improve strength/tolerance for activity to enable patient to perform ADL's. OT Education/Plan Problem List/Assessment Assessment: Decreased Activ Tolerance, Decreased UE Strength, Impaired Funct Balance, Impaired Self-Care Skills Discharge Recommendations Plan/Recommendations: Continue POC Treatment Plan/Plan of Care Patient would benefit from OT for education, treatment and training to promote independence in ADL's, mobility, safety and/or upper extremity function for ADL's. Plan of Care: ADL Retraining, Functional Mobility, Group Exercise/Act as Ind, UE Funct Exercise/Act Treatment Duration: May 04, 2021 Frequency: At least 5 of 7 days/Wk (IRF) Estimated Hrs Per Day: 1.5 hours per day Agreement: Yes Rehab Potential: Fair Time/GCodes Start Time: 08:30 Stop Time: 10:00 Total Time Billed (hr/min): 90 Billed Treatment Time 1 visit-ADL 3 (45 min) FA 2 (25 min) EX 1 (20 min) FLORENCE CHIRINOS Apr 19, 2021 10:01
--- NOTE | 2021-04-19 10:19 | PM&R Progress Note ---
Subjective HPI/CC On Admission Date Seen by Provider: Apr 19, 2021 Time Seen by Provider: 12:45 Subjective/Events-last exam 04/19/2021: Pt sleeping right now Loose stools we are holding laxatives Holding Eliquis, Plavix and Aspirin due to significant bleeding from the incision site Checked meds and labs 04/18/2021: Pt is doing about the same Bleeding from the wound so Eliquis and Aspirin are held Midline is helping with the iron infusions Diarrhea is noted, holding the laxative WBC is 15.6 Hgb 9.2 04/17/2021: Pt doing a lot better Bowels moved yesterday Holding Lisinopril and Metoprolol due to hypotension Mild dizziness noted Small nose bleed last night maintained on saline nasal spray Will give amputation society information to him 04/16/2021: Pt doing well Hgb 7.8 Midline will be placed for iron infusions Incision looks good Potassium 3.1 supplementing 20mEq TID 04/15/2021: Patient doing pretty well Lightheadedness noted Iron infusions given for acute blood loss anemia Checking labs tomorrow may need transfusion Stopping Accu-Cheks since they are all normal 04/14/2021: Patient doing well Denies any new issues Pain is well controlled Bowels moved today Iron infusions maintained Midline will be placed 04/13/2021: Patient settling in White count elevated just as it was at [place] No fever Wound care managing dressing Subtle crackle left lower lobe Smoking cessation Encouraged to use incentive spirometer Iron low will start Venofer Review of Systems General: Fatigue, Malaise Objective Exam Vital Signs Vital Signs Date Time Temp Pulse Resp B/P (MAP) Pulse Ox O2 Delivery O2 Flow Rate FiO2 04/19/21 20:15 Room Air 04/19/21 19:51 36.6 99 16 108/81 (90) 98 04/15/21 07:44 0.00 Capillary Refill : General Appearance: No Apparent Distress, WD/WN HEENT: PERRL/EOMI; No Photophobia Neck: Full Range of Motion, Non Tender, Supple Respiratory: Lungs Clear, Normal Breath Sounds, No Accessory Muscle Use, No Respiratory Distress Cardiovascular: Regular Rate, Rhythm, No Edema, No Gallop, No JVD, No Murmur, Normal Peripheral Pulses Gastrointestinal: Normal Bowel Sounds, No Organomegaly, No Pulsatile Mass, Non Tender, Soft Back: Normal Inspection, No CVA Tenderness, No Vertebral Tenderness Extremity: Normal Capillary Refill, Non Tender, No Calf Tenderness, No Pedal Edema, Other (Bleeding from lateral aspect of incision site from AKA. Bleeding is worse than it was yesterday. Incision site appears to be otherwise healing well) Neurologic/Psychiatric: Alert, Oriented x3, No Motor/Sensory Deficits, Normal Mood/Affect, supervisor publications II-XII Norm as Tested, Abnormal Gait Skin: Normal Color, Warm/Dry Lymphatic: No Adenopathy (cervical) Results/Procedures Lab Patient resulted labs reviewed. FIM Transfers Therapy Code Descriptions/Definitions Functional [place] Measure: 0=Not Assessed/NA 4=Minimal Assistance 1=Total Assistance 5=Supervision or Setup 2=Maximal Assistance 6=Modified [place] 3=Moderate Assistance 7=Complete IndependenceSCALE: Activities may be completed with or without assistive devices. 7-Mlbiderexn-wxvhiaj completes the activity by him/herself with no assistance from a helper. 5-Set-up or Clean-up Assistance-helper sets up or cleans up; patient completes activity. [place] assists only prior to or following the activity. 4-Supervision or Touching Assistance-helper provides verbal cues and/or touching/steadying and/or contact guard assistance as patient completes activity. Assistance may be provided throughout the activity or intermittently. 3-Partial/Moderate Assistance-helper does LESS THAN HALF the effort. [place] lifts, holds or supports trunk or limbs, but provides less than half the effort. 2-Substantial/Maximal Assistance-helper does MORE THAN HALF the effort. [place] lifts or holds trunk or limbs and provides more than half the effort. 5-Hqjqqodbl-csasrx does ALL the effort. Patient does none of the effort to complete the activity. Or, the assistance of 2 or more helpers is required for the patient to complete the activity. If activity was not attempted, code reason: 7-Patient Refused. 9-Not Applicable-not attempted and the patient did not perform the activity before the current illness, exacerbation or injury. 10-Not Attempted due to Environmental Limitations-(lack of equipment, weather restraints, etc.). 88-Not Attempted due to Medical Conditions or Safety Concerns. Roll Left to Right (QC): 6 Sit to Lying (QC): 6 Sit to Stand (QC): 4 Chair/Pzn-ha-Bvybs Xfer(QC): 4 Car Transfer (QC): 4 Gait Training Does the Patient Walk?: Yes Distance: 12'x3 Walk 10 feet (QC): 4 Walk 50 ft with 2 Turns(QC): 88 Walk 150 ft (QC): 88 Walking 10ft/uneven surface-QC: 88 Gait Persons Needed: 1 Gait Assistive Device: Parallel Bars Wheelchair Training Does the Pt Use a Wheelchair?: Yes Distance: 150' Wheel 50 ft with 2 turns (QC): 6 Wheel 150 ft (QC): 6 Type of Wheelchair: Manual Stair Training 1 Step (curb) (QC): 88 4 Steps (QC): 88 12 Steps (QC): 88 Balance Picking up an Object (QC): 4 ADL-Treatment Eating (QC): 6 Oral Hygiene (QC): 6 Bathing Location: L Arm, R Arm, L Lower Leg (including foot), R Lower Leg (including foot) (AKA), Chest, Abdomen, Perineal Area Shower/Bathe Self (QC): 3 Upper Body Dressing (QC): 5 Lower Body Dressing (QC): 4 On/Off Footwear (QC): 5 Toileting Hygiene (QC): 4 Toilet Transfer (QC): 4 Assessment/Plan Assessment and Plan Assess & Plan/Chief Complaint Assessment: 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 Previous smoker Right lower extremity wounds Leukocytosis due to stress from amputation Diabetes Hypertension Acute blood loss anemia with iron deficiency Left lower lobe crackle on 04/13/2021 resolved Bleeding from incision site anticoagulation Plavix and aspirin 04/19/2021 Plan: Supportive care Rehab protocol Pain meds 04/13/2021: Incentive spirometer Iron infusion 04/14/21: Iron infusions B12 supplement 04/15/2021: Check labs in the morning Maintain iron infusion 04/16/2021: Supportive care Iron infusions Midline placement 04/17/2021: Iron infusions Amputation site information for support 04/18/2021: Hold anticoagulants due to bleeding Supportive care 04/19/2021: Blood thinners due to incision bleeding (1) Above knee amputation of left lower extremity CHRISTOPHE HERNANDEZ DO Apr 19, 2021 10:19
--- NOTE | 2021-04-19 14:48 | Physical Therapy Daily Note ---
PT Daily Note-Current Subjective Patient in bed pre tx, agrees to PT, voices no complaints of pain. Appearance Patient in bed post tx with nurse call, phone, tray, all needs met. Mental Status Patient Orientation: Person, Place, Situation, Normal For Age Transfers SCALE: Activities may be completed with or without assistive devices. 6-Bltihmbrwq-qcjbsbw completes the activity by him/herself with no assistance from a helper. 5-Set-up or Clean-up Assistance-helper sets up or cleans up; patient completes activity. [place] assists only prior to or following the activity. 4-Supervision or Touching Assistance-helper provides verbal cues and/or touching/steadying and/or contact guard assistance as patient completes activity. Assistance may be provided throughout the activity or intermittently. 3-Partial/Moderate Assistance-helper does LESS THAN HALF the effort. [place] lifts, holds or supports trunk or limbs, but provides less than half the effort. 2-Substantial/Maximal Assistance-helper does MORE THAN HALF the effort. [place] lifts or holds trunk or limbs and provides more than half the effort. 2-Yjifcoxcy-ctfove does ALL the effort. Patient does none of the effort to complete the activity. Or, the assistance of 2 or more helpers is required for the patient to complete the activity. If activity was not attempted, code reason: 7-Patient Refused. 9-Not Applicable-not attempted and the patient did not perform the activity before the current illness, exacerbation or injury. 10-Not Attempted due to Environmental Limitations-(lack of equipment, weather restraints, etc.). 88-Not Attempted due to Medical Conditions or Safety Concerns. Roll Left & Right (QC): 6 Sit to Lying (QC): 6 Lying to Sitting/Side of Bed(Q: 6 Sit to Stand (QC): 6 Chair/Cbu-oo-Usjjs Xfer(QC): 6 Patient now performs transfers with independence, notified nurse that patient will now be independent in his room. Wheelchair Training Does the Pt Use a Wheelchair?: Yes Wheel 50 ft with 2 turns (QC): 6 Wheel 150 ft (QC): 6 Type of Wheelchair: Manual 400'x4 Exercises Seated Therapy Exercises: Ankle pumps, Hip flexion Seated Reps: 20 (RLE) LAQ right leg for 5 min NuStep Minutes: 15 NuStep Workload: 5 Treatments WC mobility, transfers and bed mobility, LE strengthening Assessment Current Status: Fair Progress Improving general mobility. Patient had a lot of difficulty with bleeding from his residual limb this morning. Modified tx as to try to limit chances of making it bleed again. PT Short Term Goals Short Term Goals Time Frame: Apr 19, 2021 Roll Left & Right: 6 Sit to lyin Lying to sitting on side of be: 6 Sit to stand: 4 Chair/vjj-pc-tbmch transfer: 4 (SBA) Walk 10 feet: 4 Walk 50 feet with two turns: 4 PT W[employer] Supervisor Goals Nursing Home Goals PT Nursing Home Goals Time Frame: May 03, 2021 Roll Left & Right (QC): 6 Sit to Lying (QC): 6 Lying-Sitting on Side/Bed(QC): 6 Sit to Stand (QC): 5 Chair/Lge-mg-Xyghh Xfer(QC): 5 Toilet Transfer (QC): 5 Car Transfer (QC): 5 Does the Patient Walk: Yes Walk 10 feet (QC): 5 Walk 50ft with 2 Turns (QC): 5 Walk 150 ft (QC): 88 Walking 10ft on Uneven Surface: 4 1 Step (curb) (QC): 4 4 Steps (QC): 4 12 Steps (QC): 88 Picking up an Object (QC): 5 Wheel 50 feet with 2 turns (QC: 6 Wheel 150 feet: 6 PT Plan Problem List Problem List: Activity Tolerance, Functional Strength, Safety, Balance, Gait, Transfer, ROM Treatment/Plan Treatment Plan: Continue Plan of Care Treatment Plan: Bed Mobility, Education, Functional Activity Deniz, Functional Strength, Group Therapy, Gait, Safety, Therapeutic Exercise, Transfers Treatment Duration: May 03, 2021 Frequency: At least 5 of 7 days/Wk (IRF) Estimated Hrs Per Day: 1.5 hours per day Patient and/or Family Agrees t: Yes Safety Risks/Education Patient Education: Transfer Techniques, Correct Positioning, W/C Management, Safety Issues Teaching Recipient: Patient Teaching Methods: Demonstration, Discussion Response to Teaching: Reinforcement Needed Time/GCodes Time In: 1330 Time Out: 1500 Total Billed Treatment Time: 90 Total Billed Treatment 1 visit EX 30' FA 60' ROSEMARY CABA PT Apr 19, 2021 14:48
[2021-04-19 19:51] VITALS: BP 108/81
[2021-04-19] MEDS: SENNOSIDES 8.6 MG (SENOKOT) TAB PO SCH (19:52)
[2021-04-20] MEDS: FUROSEMIDE 20 MG (LASIX) TAB PO SCH ×2 (06:04→17:18)
[2021-04-20] MEDS: CATHETER FLUSH 10 ML SYR IV SCH ×3 (06:04→20:05)
[2021-04-20 07:11] VITALS: BP 135/84
[2021-04-20] MEDS: KCL 10 MEQ TAB (MICRO K) PO SCH ×3 (08:05→17:18)
[2021-04-20] MEDS: metFORMIN 500 MG (GLUCOPHAGE) TAB PO SCH ×2 (08:05→20:04)
[2021-04-20] MEDS: PANTOPRAZOLE 40 MG (PROTONIX) TAB PO SCH (08:05)
[2021-04-20] MEDS: MULTIVIT W/MINERALS TAB (THERAGRAN M) PO SCH (08:05)
[2021-04-20] MEDS: SENNA W/DOCUSATE (SENOKOT S) TABLET PO SCH ×2 (08:06→19:31)
[2021-04-20] MEDS: DOCUSATE SODIUM 100 MG (COLACE) CAP PO SCH ×2 (08:06→19:31)
[2021-04-20] MEDS: polyethylene glycoL POWDER 17 GM (MIRALAX) PACK PO SCH ×2 (08:06→19:31)
[2021-04-20] MEDS: EMPAGLIFLOZIN 10 MG TABLET (JARDIANCE) PO SCH (08:06)
[2021-04-20] MEDS: DAKIN'S 1/4 STRENGTH (0.125%) 237 ML BTL TOP SCH (08:07)
--- NOTE | 2021-04-20 08:12 | Occupational Ther Daily Note ---
OT Current Status-Daily Note Subjective Pt alert, lying in bed. Pt agrees to therapy. No c/o pain. During transfers to toilet then bathroom stump dressing fell off, reported to nrsg and nrsg came to give meds and reapply dressing. Mental Status/Objective Patient Orientation: Person, Place, Time, Situation Attachments: IV (PICC) ADL-Treatment Pt agrees to shower. Independent with supine <--> EOB then SPT from surface to surface with grabbars or w/c arms. Independent with clothing manipulate and hygiene for toileting using grabbars and BSC over toilet. Independent with shower sitting on shower bench and completing all areas in sitting, grabbars and hand held shower used. Pt then transferred back to bed to have nrsg reapply bandage. Pt able to dress self sitting EOB by self after set up, sock aide to don sock. Pt then propelled w/c to sink to complete oral care independently. Pt propelled w/c to central bathing to work on tub transfers. Pt able to position w/c perpendicular to tub and place R foot into tub then using grabbars and w/c arm, pt able to transfer onto bench with supervision for safety. After therapy, pt lying in bed with call light/phone in reach. All needs met in room. Therapy Code Descriptions/Definitions Functional [place] Measure: 0=Not Assessed/NA 4=Minimal Assistance 1=Total Assistance 5=Supervision or Setup 2=Maximal Assistance 6=Modified [place] 3=Moderate Assistance 7=Complete IndependenceSCALE: Activities may be completed with or without assistive devices. 3-Nhyrmwxzio-lkfrdub completes the activity by him/herself with no assistance from a helper. 5-Set-up or Clean-up Assistance-helper sets up or cleans up; patient completes activity. [place] assists only prior to or following the activity. 4-Supervision or Touching Assistance-helper provides verbal cues and/or touching/steadying and/or contact guard assistance as patient completes activity. Assistance may be provided throughout the activity or intermittently. 3-Partial/Moderate Assistance-helper does LESS THAN HALF the effort. [place] lifts, holds or supports trunk or limbs, but provides less than half the effort. 2-Substantial/Maximal Assistance-helper does MORE THAN HALF the effort. [place] lifts or holds trunk or limbs and provides more than half the effort. 1-Bxljleiws-jlpycq does ALL the effort. Patient does none of the effort to complete the activity. Or, the assistance of 2 or more helpers is required for the patient to complete the activity. If activity was not attempted, code reason: 7-Patient Refused. 9-Not Applicable-not attempted and the patient did not perform the activity before the current illness, exacerbation or injury. 10-Not Attempted due to Environmental Limitations-(lack of equipment, weather restraints, etc.). 88-Not Attempted due to Medical Conditions or Safety Concerns. Eating (QC): 6 (Per clinical judgment.) Oral Hygiene (QC): 6 Shower/Bathe Self (QC): 6 Upper Body Dressing (QC): 5 Lower Body Dressing (QC): 5 On/Off Footwear: 5 Toileting Hygiene (QC): 6 Toilet Transfer (QC): 6 Other Treatment Pt completed B UE exercises with 3# hand wt to increase strength and activity tolerance for daily functional tasks. Exercises 3 sets 10 reps, shldr abd, tricep ext, bicep flex, wrist flex/ext and chair pushups(3 sets 5 reps). OT Short Term Goals Short Term Goals Time Frame: Apr 25, 2021 Toileting hygiene: 4 Shower/bathe self: 5 Upper body dressin Lower body dressin OT Correction Goals Correction Goals Time Frame: May 04, 2021 Eating (QC): 6 Oral Hygiene (QC): 6 Toileting Hygiene (QC): 6 Shower/Bathe Self (QC): 6 Upper Body Dressing (QC): 6 Lower Body Dressing (QC): 6 On/Off Footwear (QC): 6 Additional Goals: 1-Demonstrate ADL Tasks, 2-Verbalize Understanding, 3- ImproveStrength/Deniz 1=Demonstrate adherence to instructed precautions during ADL tasks. 2=Patient will verbalize/demonstrate understanding of assistive devices/modifications for ADL. 3=Patient will improve strength/tolerance for activity to enable patient to perform ADL's. OT Education/Plan Problem List/Assessment Assessment: Decreased Activ Tolerance, Decreased UE Strength, Impaired Self- Care Skills Discharge Recommendations Plan/Recommendations: Continue POC Treatment Plan/Plan of Care Patient would benefit from OT for education, treatment and training to promote independence in ADL's, mobility, safety and/or upper extremity function for ADL's. Plan of Care: ADL Retraining, Functional Mobility, Group Exercise/Act as Ind, UE Funct Exercise/Act Treatment Duration: May 04, 2021 Frequency: At least 5 of 7 days/Wk (IRF) Estimated Hrs Per Day: 1.5 hours per day Agreement: Yes Rehab Potential: Fair Time/GCodes Start Time: 07:30 Stop Time: 09:00 Total Time Billed (hr/min): 90 Billed Treatment Time 1 visit-EX 3 (45 min) FA 2 (30 min) EX 1 (15 min) FLORENCE CHIRINOS Apr 20, 2021 08:12
[2021-04-20] MEDS: RT--FLUTICASONE/SALMETEROL 113-14 (AIRDUO RespiCLICK) IH SCH ×2 (09:58→21:08)
[2021-04-20] MEDS: oxyCODONE/APAP 7.5-325 MG (PERCOCET 7.5) TABLET PO PRN ×3 (10:08→20:16)
--- NOTE | 2021-04-20 10:26 | PM&R Progress Note ---
Subjective HPI/CC On Admission Date Seen by Provider: Apr 20, 2021 Time Seen by Provider: 12:30 Subjective/Events-last exam 04/20/2021: Patient doing pretty well Incision bleeding again Up ad yana. per PT Checked meds and labs 04/19/2021: Pt sleeping right now Loose stools we are holding laxatives Holding Eliquis, Plavix and Aspirin due to significant bleeding from the incision site Checked meds and labs 04/18/2021: Pt is doing about the same Bleeding from the wound so Eliquis and Aspirin are held Midline is helping with the iron infusions Diarrhea is noted, holding the laxative WBC is 15.6 Hgb 9.2 04/17/2021: Pt doing a lot better Bowels moved yesterday Holding Lisinopril and Metoprolol due to hypotension Mild dizziness noted Small nose bleed last night maintained on saline nasal spray Will give amputation society information to him 04/16/2021: Pt doing well Hgb 7.8 Midline will be placed for iron infusions Incision looks good Potassium 3.1 supplementing 20mEq TID 04/15/2021: Patient doing pretty well Lightheadedness noted Iron infusions given for acute blood loss anemia Checking labs tomorrow may need transfusion Stopping Accu-Cheks since they are all normal 04/14/2021: Patient doing well Denies any new issues Pain is well controlled Bowels moved today Iron infusions maintained Midline will be placed 04/13/2021: Patient settling in White count elevated just as it was at [place] No fever Wound care managing dressing Subtle crackle left lower lobe Smoking cessation Encouraged to use incentive spirometer Iron low will start Venofer Review of Systems Musculoskeletal: leg pain Objective Exam Vital Signs Vital Signs Date Time Temp Pulse Resp B/P (MAP) Pulse Ox O2 Delivery O2 Flow Rate FiO2 04/20/21 09:58 98 Room Air 04/20/21 07:11 36.7 105 20 135/84 (101) 04/15/21 07:44 0.00 Capillary Refill : General Appearance: No Apparent Distress, WD/WN HEENT: PERRL/EOMI; No Photophobia Neck: Full Range of Motion, Non Tender, Supple Respiratory: Lungs Clear, Normal Breath Sounds, No Accessory Muscle Use, No Respiratory Distress Cardiovascular: Regular Rate, Rhythm, No Edema, No Gallop, No JVD, No Murmur, Normal Peripheral Pulses Gastrointestinal: Normal Bowel Sounds, No Organomegaly, No Pulsatile Mass, Non Tender, Soft Back: Normal Inspection, No CVA Tenderness, No Vertebral Tenderness Extremity: Normal Capillary Refill, Non Tender, No Calf Tenderness, No Pedal Edema, Other (Bleeding from lateral aspect of incision site from AKA. Bleeding is worse than it was yesterday. Incision site appears to be otherwise healing well) Neurologic/Psychiatric: Alert, Oriented x3, No Motor/Sensory Deficits, Normal Mood/Affect, vocational guidance counselor II-XII Norm as Tested, Abnormal Gait Skin: Normal Color, Warm/Dry Lymphatic: No Adenopathy (cervical) Results/Procedures Lab Patient resulted labs reviewed. FIM Transfers Therapy Code Descriptions/Definitions Functional [place] Measure: 0=Not Assessed/NA 4=Minimal Assistance 1=Total Assistance 5=Supervision or Setup 2=Maximal Assistance 6=Modified [place] 3=Moderate Assistance 7=Complete IndependenceSCALE: Activities may be completed with or without assistive devices. 3-Vbchbzpxau-hbxdatd completes the activity by him/herself with no assistance from a helper. 5-Set-up or Clean-up Assistance-helper sets up or cleans up; patient completes activity. [place] assists only prior to or following the activity. 4-Supervision or Touching Assistance-helper provides verbal cues and/or touching/steadying and/or contact guard assistance as patient completes activity. Assistance may be provided throughout the activity or intermittently. 3-Partial/Moderate Assistance-helper does LESS THAN HALF the effort. [place] lifts, holds or supports trunk or limbs, but provides less than half the effort. 2-Substantial/Maximal Assistance-helper does MORE THAN HALF the effort. [place] lifts or holds trunk or limbs and provides more than half the effort. 5-Uyadjzevl-orluqg does ALL the effort. Patient does none of the effort to complete the activity. Or, the assistance of 2 or more helpers is required for the patient to complete the activity. If activity was not attempted, code reason: 7-Patient Refused. 9-Not Applicable-not attempted and the patient did not perform the activity before the current illness, exacerbation or injury. 10-Not Attempted due to Environmental Limitations-(lack of equipment, weather restraints, etc.). 88-Not Attempted due to Medical Conditions or Safety Concerns. Roll Left to Right (QC): 6 Sit to Lying (QC): 6 Sit to Stand (QC): 6 Chair/Mfk-ps-Ppjam Xfer(QC): 6 Car Transfer (QC): 4 Gait Training Does the Patient Walk?: Yes Distance: 12'x3 Walk 10 feet (QC): 4 Walk 50 ft with 2 Turns(QC): 88 Walk 150 ft (QC): 88 Walking 10ft/uneven surface-QC: 88 Gait Persons Needed: 1 Gait Assistive Device: Parallel Bars Wheelchair Training Does the Pt Use a Wheelchair?: Yes Distance: 150' Wheel 50 ft with 2 turns (QC): 6 Wheel 150 ft (QC): 6 Type of Wheelchair: Manual Stair Training 1 Step (curb) (QC): 88 4 Steps (QC): 88 12 Steps (QC): 88 Balance Picking up an Object (QC): 4 ADL-Treatment Eating (QC): 6 (Per clinical judgment.) Oral Hygiene (QC): 6 Bathing Location: L Arm, R Arm, L Lower Leg (including foot), R Lower Leg (including foot) (AKA), Chest, Abdomen, Perineal Area Shower/Bathe Self (QC): 6 Upper Body Dressing (QC): 5 Lower Body Dressing (QC): 5 On/Off Footwear (QC): 5 Toileting Hygiene (QC): 6 Toilet Transfer (QC): 6 Assessment/Plan Assessment and Plan Assess & Plan/Chief Complaint Assessment: 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 Previous smoker Right lower extremity wounds Leukocytosis due to stress from amputation Diabetes Hypertension Acute blood loss anemia with iron deficiency Left lower lobe crackle on 04/13/2021 resolved Bleeding from incision site held anticoagulation and held Plavix and aspirin 04/19/2021 Plan: Supportive care Rehab protocol Pain meds 04/13/2021: Incentive spirometer Iron infusion 04/14/21: Iron infusions B12 supplement 04/15/2021: Check labs in the morning Maintain iron infusion 04/16/2021: Supportive care Iron infusions Midline placement 04/17/2021: Iron infusions Amputation site information for support 04/18/2021: Hold anticoagulants due to bleeding Supportive care 04/19/2021: Blood thinners due to incision bleeding 04/20/2021: Supportive care Monitor bleeding from incision site (1) Above knee amputation of left lower extremity CHRISTOPHE HERNANDEZ DO Apr 20, 2021 10:26
--- NOTE | 2021-04-20 11:19 | Physical Therapy Daily Note ---
PT Daily Note-Current Subjective Patient in bed pre tx, agrees to PT, has 7/10 pain in left leg, nurse notified and he got pain meds. Appearance Patient in WC in room post tx, he has some blood soaking through his bandage, nurse notified. Mental Status Patient Orientation: Normal For Age Transfers SCALE: Activities may be completed with or without assistive devices. 5-Uvnwlekoag-ctkssbr completes the activity by him/herself with no assistance from a helper. 5-Set-up or Clean-up Assistance-helper sets up or cleans up; patient completes activity. [place] assists only prior to or following the activity. 4-Supervision or Touching Assistance-helper provides verbal cues and/or touching/steadying and/or contact guard assistance as patient completes activity. Assistance may be provided throughout the activity or intermittently. 3-Partial/Moderate Assistance-helper does LESS THAN HALF the effort. [place] lifts, holds or supports trunk or limbs, but provides less than half the effort. 2-Substantial/Maximal Assistance-helper does MORE THAN HALF the effort. [place] lifts or holds trunk or limbs and provides more than half the effort. 7-Ueutrunti-chiimc does ALL the effort. Patient does none of the effort to complete the activity. Or, the assistance of 2 or more helpers is required for the patient to complete the activity. If activity was not attempted, code reason: 7-Patient Refused. 9-Not Applicable-not attempted and the patient did not perform the activity before the current illness, exacerbation or injury. 10-Not Attempted due to Environmental Limitations-(lack of equipment, weather restraints, etc.). 88-Not Attempted due to Medical Conditions or Safety Concerns. Roll Left & Right (QC): 6 Sit to Lying (QC): 6 Lying to Sitting/Side of Bed(Q: 6 Sit to Stand (QC): 6 Chair/Rrc-hl-Cbivz Xfer(QC): 6 Toilet Transfer (QC): 6 Wheelchair Training Does the Pt Use a Wheelchair?: Yes Wheel 50 ft with 2 turns (QC): 6 Wheel 150 ft (QC): 6 Type of Wheelchair: Manual 300', 120'x4 Exercises Standing: Heel/toe raises (RLE), 3 way Ex=Flex, Abd, Ext (LLE), Mini squats (RLE) Standing Reps: 15 sit to stands from slightly elevated therapy table 3 sets of 10, LAQ RLE with 2# ankle weight for 5 min, prone hip stretch 5 min NuStep Minutes: 15 NuStep Workload: 5 Treatments bed mobility and transfers, stretching, LE strengthening, ROM Assessment Current Status: Fair Progress Patient had to go back to his room to use the restroom a couple of time (he does this on his own) PT Short Term Goals Short Term Goals Time Frame: Apr 19, 2021 Roll Left & Right: 6 Sit to lyin Lying to sitting on side of be: 6 Sit to stand: 4 Chair/ysl-jm-uutpp transfer: 4 (SBA) Walk 10 feet: 4 Walk 50 feet with two turns: 4 PT Senior Living Goals Sas Developer Goals PT Senior Living Goals Time Frame: May 03, 2021 Roll Left & Right (QC): 6 Sit to Lying (QC): 6 Lying-Sitting on Side/Bed(QC): 6 Sit to Stand (QC): 5 Chair/Sag-pq-Kuquu Xfer(QC): 5 Toilet Transfer (QC): 5 Car Transfer (QC): 5 Does the Patient Walk: Yes Walk 10 feet (QC): 5 Walk 50ft with 2 Turns (QC): 5 Walk 150 ft (QC): 88 Walking 10ft on Uneven Surface: 4 1 Step (curb) (QC): 4 4 Steps (QC): 4 12 Steps (QC): 88 Picking up an Object (QC): 5 Wheel 50 feet with 2 turns (QC: 6 Wheel 150 feet: 6 PT Plan Problem List Problem List: Activity Tolerance, Functional Strength, Safety, Balance, Gait, Transfer, Bed Mobility, ROM Treatment/Plan Treatment Plan: Continue Plan of Care Treatment Plan: Bed Mobility, Education, Functional Activity Deniz, Functional Strength, Group Therapy, Gait, Safety, Therapeutic Exercise, Transfers Treatment Duration: May 03, 2021 Frequency: At least 5 of 7 days/Wk (IRF) Estimated Hrs Per Day: 1.5 hours per day Patient and/or Family Agrees t: Yes Safety Risks/Education Patient Education: Transfer Techniques, Correct Positioning, W/C Management, Safety Issues Teaching Recipient: Patient Teaching Methods: Demonstration, Discussion Response to Teaching: Reinforcement Needed Time/GCodes Time In: 1000 Time Out: 1130 Total Billed Treatment Time: 90 Total Billed Treatment 1 visit EX 60' FA 30' ROSEMARY CABA PT Apr 20, 2021 11:19
[2021-04-20] MEDS: IRON SUCROSE 200 MG/10 ML (VENOFER) VIAL IV SCH (13:36)
[2021-04-20] MEDS: SENNOSIDES 8.6 MG (SENOKOT) TAB PO SCH (19:32)
[2021-04-20 19:47] VITALS: BP 129/78
--- NOTE | 2021-04-21 05:50 | PM&R Progress Note ---
Subjective HPI/CC On Admission Date Seen by Provider: Apr 21, 2021 Time Seen by Provider: 12:15 Subjective/Events-last exam 04/21/2021: Patient doing really well Incision bleeding All blood thinners have been held for 4 days No pain reported 04/20/2021: Patient doing pretty well Incision bleeding again Up ad yana. per PT Checked meds and labs 04/19/2021: Pt sleeping right now Loose stools we are holding laxatives Holding Eliquis, Plavix and Aspirin due to significant bleeding from the incision site Checked meds and labs 04/18/2021: Pt is doing about the same Bleeding from the wound so Eliquis and Aspirin are held Midline is helping with the iron infusions Diarrhea is noted, holding the laxative WBC is 15.6 Hgb 9.2 04/17/2021: Pt doing a lot better Bowels moved yesterday Holding Lisinopril and Metoprolol due to hypotension Mild dizziness noted Small nose bleed last night maintained on saline nasal spray Will give amputation society information to him 04/16/2021: Pt doing well Hgb 7.8 Midline will be placed for iron infusions Incision looks good Potassium 3.1 supplementing 20mEq TID 04/15/2021: Patient doing pretty well Lightheadedness noted Iron infusions given for acute blood loss anemia Checking labs tomorrow may need transfusion Stopping Accu-Cheks since they are all normal 04/14/2021: Patient doing well Denies any new issues Pain is well controlled Bowels moved today Iron infusions maintained Midline will be placed 04/13/2021: Patient settling in White count elevated just as it was at [place] No fever Wound care managing dressing Subtle crackle left lower lobe Smoking cessation Encouraged to use incentive spirometer Iron low will start Venofer Review of Systems General: Fatigue, Malaise Musculoskeletal: leg pain Objective Exam Vital Signs Vital Signs Date Time Temp Pulse Resp B/P (MAP) Pulse Ox O2 Delivery O2 Flow Rate FiO2 04/21/21 10:06 96 Room Air 04/21/21 07:49 36.3 93 20 131/77 (95) 04/15/21 07:44 0.00 Capillary Refill : General Appearance: No Apparent Distress, WD/WN HEENT: PERRL/EOMI; No Photophobia Neck: Full Range of Motion, Non Tender, Supple Respiratory: Lungs Clear, Normal Breath Sounds, No Accessory Muscle Use, No Respiratory Distress Cardiovascular: Regular Rate, Rhythm, No Edema, No Gallop, No JVD, No Murmur, Normal Peripheral Pulses Gastrointestinal: Normal Bowel Sounds, No Organomegaly, No Pulsatile Mass, Non Tender, Soft Back: Normal Inspection, No CVA Tenderness, No Vertebral Tenderness Extremity: Normal Capillary Refill, Non Tender, No Calf Tenderness, No Pedal Edema, Other (Bleeding from lateral aspect of incision site from AKA. Bleeding is worse than it was yesterday. 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 FIM Transfers Therapy Code Descriptions/Definitions Functional [place] Measure: 0=Not Assessed/NA 4=Minimal Assistance 1=Total Assistance 5=Supervision or Setup 2=Maximal Assistance 6=Modified [place] 3=Moderate Assistance 7=Complete IndependenceSCALE: Activities may be completed with or without assistive devices. 3-Kqevlcmrbs-osjcapu completes the activity by him/herself with no assistance from a helper. 5-Set-up or Clean-up Assistance-helper sets up or cleans up; patient completes activity. [place] assists only prior to or following the activity. 4-Supervision or Touching Assistance-helper provides verbal cues and/or touching/steadying and/or contact guard assistance as patient completes activity. Assistance may be provided throughout the activity or intermittently. 3-Partial/Moderate Assistance-helper does LESS THAN HALF the effort. [place] lifts, holds or supports trunk or limbs, but provides less than half the effort. 2-Substantial/Maximal Assistance-helper does MORE THAN HALF the effort. [place] lifts or holds trunk or limbs and provides more than half the effort. 2-Bysavwifk-igyqeh does ALL the effort. Patient does none of the effort to complete the activity. Or, the assistance of 2 or more helpers is required for the patient to complete the activity. If activity was not attempted, code reason: 7-Patient Refused. 9-Not Applicable-not attempted and the patient did not perform the activity before the current illness, exacerbation or injury. 10-Not Attempted due to Environmental Limitations-(lack of equipment, weather restraints, etc.). 88-Not Attempted due to Medical Conditions or Safety Concerns. Roll Left to Right (QC): 6 Sit to Lying (QC): 6 Sit to Stand (QC): 6 Chair/Czm-xj-Jcqwn Xfer(QC): 6 Car Transfer (QC): 4 Gait Training Does the Patient Walk?: Yes Distance: 12'x3 Walk 10 feet (QC): 4 Walk 50 ft with 2 Turns(QC): 88 Walk 150 ft (QC): 88 Walking 10ft/uneven surface-QC: 88 Gait Persons Needed: 1 Gait Assistive Device: Parallel Bars Wheelchair Training Does the Pt Use a Wheelchair?: Yes Distance: 150' Wheel 50 ft with 2 turns (QC): 6 Wheel 150 ft (QC): 6 Type of Wheelchair: Manual Stair Training 1 Step (curb) (QC): 88 4 Steps (QC): 88 12 Steps (QC): 88 Balance Picking up an Object (QC): 4 ADL-Treatment Eating (QC): 6 (Per clinical judgment.) Oral Hygiene (QC): 6 Bathing Location: L Arm, R Arm, L Lower Leg (including foot), R Lower Leg (including foot) (AKA), Chest, Abdomen, Perineal Area Shower/Bathe Self (QC): 6 Upper Body Dressing (QC): 5 Lower Body Dressing (QC): 5 On/Off Footwear (QC): 5 Toileting Hygiene (QC): 6 Toilet Transfer (QC): 6 Assessment/Plan Assessment and Plan Assess & Plan/Chief Complaint Assessment: 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 Previous smoker Right lower extremity wounds Leukocytosis due to stress from amputation Diabetes Hypertension Acute blood loss anemia with iron deficiency Left lower lobe crackle on 04/13/2021 resolved Bleeding from incision site held anticoagulation and held Plavix and aspirin 04/19/2021 Plan: Supportive care Rehab protocol Pain meds 04/13/2021: Incentive spirometer Iron infusion 04/14/21: Iron infusions B12 supplement 04/15/2021: Check labs in the morning Maintain iron infusion 04/16/2021: Supportive care Iron infusions Midline placement 04/17/2021: Iron infusions Amputation site information for support 04/18/2021: Hold anticoagulants due to bleeding Supportive care 04/19/2021: Blood thinners due to incision bleeding 04/20/2021: Supportive care Monitor bleeding from incision site 04/21/2021: Monitor bleeding from incision site Aggressive therapy (1) Above knee amputation of left lower extremity CHRISTOPHE HERNANDEZ DO Apr 21, 2021 05:50
[2021-04-21] MEDS: CATHETER FLUSH 10 ML SYR IV SCH ×3 (06:03→20:40)
[2021-04-21] MEDS: FUROSEMIDE 20 MG (LASIX) TAB PO SCH ×2 (06:03→17:10)
[2021-04-21 07:49] VITALS: BP 131/77
[2021-04-21] MEDS: PANTOPRAZOLE 40 MG (PROTONIX) TAB PO SCH (08:08)
[2021-04-21] MEDS: EMPAGLIFLOZIN 10 MG TABLET (JARDIANCE) PO SCH (08:08)
[2021-04-21] MEDS: metFORMIN 500 MG (GLUCOPHAGE) TAB PO SCH ×2 (08:09→20:39)
[2021-04-21] MEDS: KCL 10 MEQ TAB (MICRO K) PO SCH ×3 (08:09→17:10)
[2021-04-21] MEDS: DAKIN'S 1/4 STRENGTH (0.125%) 237 ML BTL TOP SCH (08:09)
[2021-04-21] MEDS: oxyCODONE/APAP 7.5-325 MG (PERCOCET 7.5) TABLET PO PRN ×4 (08:09→22:31)
[2021-04-21] MEDS: MULTIVIT W/MINERALS TAB (THERAGRAN M) PO SCH (08:09)
--- NOTE | 2021-04-21 08:42 | Physical Therapy Daily Note ---
PT Daily Note-Current Subjective Patient in bed pre tx, agrees to PT, has 7/10 pain in left leg. Appearance Patient in WC post tx in room independently. Mental Status Patient Orientation: Normal For Age Transfers SCALE: Activities may be completed with or without assistive devices. 0-Ijzdqyetig-umazqjn completes the activity by him/herself with no assistance from a helper. 5-Set-up or Clean-up Assistance-helper sets up or cleans up; patient completes activity. [place] assists only prior to or following the activity. 4-Supervision or Touching Assistance-helper provides verbal cues and/or touching/steadying and/or contact guard assistance as patient completes activity. Assistance may be provided throughout the activity or intermittently. 3-Partial/Moderate Assistance-helper does LESS THAN HALF the effort. [place] lifts, holds or supports trunk or limbs, but provides less than half the effort. 2-Substantial/Maximal Assistance-helper does MORE THAN HALF the effort. [place] lifts or holds trunk or limbs and provides more than half the effort. 8-Gnyhktyxe-audmsu does ALL the effort. Patient does none of the effort to complete the activity. Or, the assistance of 2 or more helpers is required for the patient to complete the activity. If activity was not attempted, code reason: 7-Patient Refused. 9-Not Applicable-not attempted and the patient did not perform the activity before the current illness, exacerbation or injury. 10-Not Attempted due to Environmental Limitations-(lack of equipment, weather restraints, etc.). 88-Not Attempted due to Medical Conditions or Safety Concerns. Roll Left & Right (QC): 6 Lying to Sitting/Side of Bed(Q: 6 Sit to Stand (QC): 6 Chair/Ktx-uw-Oybso Xfer(QC): 6 Gait Training Distance: 24' Walk 10 feet (QC): 4 Gait Persons Needed: 1 Gait Assistive Device: Parallel Bars 6' forward and back 2 times for a total of 24', much more steady Wheelchair Training Does the Pt Use a Wheelchair?: Yes Wheel 50 ft with 2 turns (QC): 6 Type of Wheelchair: Manual 100'x2 Exercises Standing: Heel/toe raises (RLE), 3 way Ex=Flex, Abd, Ext (LLE), Mini squats (RLE) Standing Reps: 15 Treatments bed mobility and transfers, ambulation, LE ROM and strengthening Assessment Current Status: Fair Progress improving ambulation, probably ready to start ambulating a little with a rolling walker PT Short Term Goals Short Term Goals Time Frame: Apr 19, 2021 Roll Left & Right: 6 Sit to lyin Lying to sitting on side of be: 6 Sit to stand: 4 Chair/ujx-nw-thfql transfer: 4 (SBA) Walk 10 feet: 4 Walk 50 feet with two turns: 4 PT Field Agronomist Goals Field Agronomist Goals PT Field Agronomist Goals Time Frame: May 03, 2021 Roll Left & Right (QC): 6 Sit to Lying (QC): 6 Lying-Sitting on Side/Bed(QC): 6 Sit to Stand (QC): 5 Chair/Mgd-cr-Pxfbb Xfer(QC): 5 Toilet Transfer (QC): 5 Car Transfer (QC): 5 Does the Patient Walk: Yes Walk 10 feet (QC): 5 Walk 50ft with 2 Turns (QC): 5 Walk 150 ft (QC): 88 Walking 10ft on Uneven Surface: 4 1 Step (curb) (QC): 4 4 Steps (QC): 4 12 Steps (QC): 88 Picking up an Object (QC): 5 Wheel 50 feet with 2 turns (QC: 6 Wheel 150 feet: 6 PT Plan Problem List Problem List: Activity Tolerance, Functional Strength, Safety, Balance, Gait, Transfer, ROM Treatment/Plan Treatment Plan: Continue Plan of Care Treatment Plan: Bed Mobility, Education, Functional Activity Deniz, Functional Strength, Group Therapy, Gait, Safety, Therapeutic Exercise, Transfers Treatment Duration: May 03, 2021 Frequency: At least 5 of 7 days/Wk (IRF) Estimated Hrs Per Day: 1.5 hours per day Patient and/or Family Agrees t: Yes Safety Risks/Education Patient Education: Gait Training, Transfer Techniques, Correct Positioning, Safety Issues Teaching Recipient: Patient Teaching Methods: Demonstration, Discussion Response to Teaching: Reinforcement Needed Time/GCodes Time In: 821 Time Out: 834 Total Billed Treatment Time: 13 Total Billed Treatment 1 visit EX ROSEMARY DE LA CRUZ PT Apr 21, 2021 08:41
[2021-04-21] MEDS: polyethylene glycoL POWDER 17 GM (MIRALAX) PACK PO SCH ×2 (09:19→19:31)
[2021-04-21] MEDS: SENNA W/DOCUSATE (SENOKOT S) TABLET PO SCH ×2 (09:19→19:31)
[2021-04-21] MEDS: DOCUSATE SODIUM 100 MG (COLACE) CAP PO SCH ×2 (09:19→19:30)
[2021-04-21] MEDS: RT--FLUTICASONE/SALMETEROL 113-14 (AIRDUO RespiCLICK) IH SCH ×2 (10:06→20:23)
[2021-04-21] MEDS: SENNOSIDES 8.6 MG (SENOKOT) TAB PO SCH (19:31)
[2021-04-21 19:52] VITALS: BP 133/88
[2021-04-22] MEDS: CATHETER FLUSH 10 ML SYR IV SCH ×3 (06:26→20:37)
[2021-04-22] MEDS: FUROSEMIDE 20 MG (LASIX) TAB PO SCH ×2 (06:26→17:39)
[2021-04-22 07:13] VITALS: BP 131/79
--- NOTE | 2021-04-22 07:24 | PM&R Progress Note ---
Subjective HPI/CC On Admission Date Seen by Provider: Apr 22, 2021 Time Seen by Provider: 12:30 Subjective/Events-last exam 04/21/21: Patient feels well No bleeding Off blood thinners Dressing changes reveal no bleeding 04/21/2021: Patient doing really well Incision bleeding All blood thinners have been held for 4 days No pain reported 04/20/2021: Patient doing pretty well Incision bleeding again Up ad yana. per PT Checked meds and labs 04/19/2021: Pt sleeping right now Loose stools we are holding laxatives Holding Eliquis, Plavix and Aspirin due to significant bleeding from the incision site Checked meds and labs 04/18/2021: Pt is doing about the same Bleeding from the wound so Eliquis and Aspirin are held Midline is helping with the iron infusions Diarrhea is noted, holding the laxative WBC is 15.6 Hgb 9.2 04/17/2021: Pt doing a lot better Bowels moved yesterday Holding Lisinopril and Metoprolol due to hypotension Mild dizziness noted Small nose bleed last night maintained on saline nasal spray Will give amputation society information to him 04/16/2021: Pt doing well Hgb 7.8 Midline will be placed for iron infusions Incision looks good Potassium 3.1 supplementing 20mEq TID 04/15/2021: Patient doing pretty well Lightheadedness noted Iron infusions given for acute blood loss anemia Checking labs tomorrow may need transfusion Stopping Accu-Cheks since they are all normal 04/14/2021: Patient doing well Denies any new issues Pain is well controlled Bowels moved today Iron infusions maintained Midline will be placed 04/13/2021: Patient settling in White count elevated just as it was at [place] No fever Wound care managing dressing Subtle crackle left lower lobe Smoking cessation Encouraged to use incentive spirometer Iron low will start Venofer Review of Systems General: Fatigue, Malaise Musculoskeletal: leg pain Objective Exam Vital Signs Vital Signs Date Time Temp Pulse Resp B/P (MAP) Pulse Ox O2 Delivery O2 Flow Rate FiO2 04/22/21 20:19 37.0 84 18 120/76 (91) 96 Room Air Capillary Refill : General Appearance: No Apparent Distress, WD/WN HEENT: PERRL/EOMI; No Photophobia Neck: Full Range of Motion, Non Tender, Supple Respiratory: Lungs Clear, Normal Breath Sounds, No Accessory Muscle Use, No Respiratory Distress Cardiovascular: Regular Rate, Rhythm, No Edema, No Gallop, No JVD, No Murmur, Normal Peripheral Pulses Gastrointestinal: Normal Bowel Sounds, No Organomegaly, No Pulsatile Mass, Non Tender, Soft Back: Normal Inspection, No CVA Tenderness, No Vertebral Tenderness Extremity: Normal Capillary Refill, Non Tender, No Calf Tenderness, No Pedal Edema, Other (Bleeding from lateral aspect of incision site from AKA. Bleeding is worse than it was yesterday. 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 FIM Transfers Therapy Code Descriptions/Definitions Functional [place] Measure: 0=Not Assessed/NA 4=Minimal Assistance 1=Total Assistance 5=Supervision or Setup 2=Maximal Assistance 6=Modified [place] 3=Moderate Assistance 7=Complete IndependenceSCALE: Activities may be completed with or without assistive devices. 6-Mfwlegfsez-rgzbhyz completes the activity by him/herself with no assistance from a helper. 5-Set-up or Clean-up Assistance-helper sets up or cleans up; patient completes activity. [place] assists only prior to or following the activity. 4-Supervision or Touching Assistance-helper provides verbal cues and/or touching/steadying and/or contact guard assistance as patient completes activity. Assistance may be provided throughout the activity or intermittently. 3-Partial/Moderate Assistance-helper does LESS THAN HALF the effort. [place] lifts, holds or supports trunk or limbs, but provides less than half the effort. 2-Substantial/Maximal Assistance-helper does MORE THAN HALF the effort. [place] lifts or holds trunk or limbs and provides more than half the effort. 1-Tclbiluhg-ahcabb does ALL the effort. Patient does none of the effort to complete the activity. Or, the assistance of 2 or more helpers is required for the patient to complete the activity. If activity was not attempted, code reason: 7-Patient Refused. 9-Not Applicable-not attempted and the patient did not perform the activity before the current illness, exacerbation or injury. 10-Not Attempted due to Environmental Limitations-(lack of equipment, weather restraints, etc.). 88-Not Attempted due to Medical Conditions or Safety Concerns. Roll Left to Right (QC): 6 Sit to Lying (QC): 6 Sit to Stand (QC): 6 Chair/Jgm-bn-Zzrca Xfer(QC): 6 Car Transfer (QC): 4 Gait Training Does the Patient Walk?: Yes Distance: 24' Walk 10 feet (QC): 4 Walk 50 ft with 2 Turns(QC): 88 Walk 150 ft (QC): 88 Walking 10ft/uneven surface-QC: 88 Gait Persons Needed: 1 Gait Assistive Device: Parallel Bars Wheelchair Training Does the Pt Use a Wheelchair?: Yes Distance: 150' Wheel 50 ft with 2 turns (QC): 6 Wheel 150 ft (QC): 6 Type of Wheelchair: Manual Stair Training 1 Step (curb) (QC): 88 4 Steps (QC): 88 12 Steps (QC): 88 Balance Picking up an Object (QC): 4 ADL-Treatment Eating (QC): 6 (Per clinical judgment.) Oral Hygiene (QC): 6 Bathing Location: L Arm, R Arm, L Lower Leg (including foot), R Lower Leg (including foot) (AKA), Chest, Abdomen, Perineal Area Shower/Bathe Self (QC): 6 Upper Body Dressing (QC): 5 Lower Body Dressing (QC): 5 On/Off Footwear (QC): 5 Toileting Hygiene (QC): 6 Toilet Transfer (QC): 6 Assessment/Plan Assessment and Plan Assess & Plan/Chief Complaint Assessment: 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 Previous smoker Right lower extremity wounds Leukocytosis due to stress from amputation Diabetes Hypertension Acute blood loss anemia with iron deficiency Left lower lobe crackle on 04/13/2021 resolved Bleeding from incision site held anticoagulation and held Plavix and aspirin 04/19/2021 Plan: Supportive care Rehab protocol Pain meds 04/13/2021: Incentive spirometer Iron infusion 04/14/21: Iron infusions B12 supplement 04/15/2021: Check labs in the morning Maintain iron infusion 04/16/2021: Supportive care Iron infusions Midline placement 04/17/2021: Iron infusions Amputation site information for support 04/18/2021: Hold anticoagulants due to bleeding Supportive care 04/19/2021: Blood thinners due to incision bleeding 04/20/2021: Supportive care Monitor bleeding from incision site 04/21/2021: Monitor bleeding from incision site Aggressive therapy 04/22/21: Monitor closely Labs in am (1) Above knee amputation of left lower extremity CHRISTOPHE HERNANDEZ DO Apr 22, 2021 07:24
[2021-04-22] MEDS: RT--FLUTICASONE/SALMETEROL 113-14 (AIRDUO RespiCLICK) IH SCH ×2 (07:52→19:35)
[2021-04-22] MEDS: MULTIVIT W/MINERALS TAB (THERAGRAN M) PO SCH (07:56)
[2021-04-22] MEDS: EMPAGLIFLOZIN 10 MG TABLET (JARDIANCE) PO SCH (07:56)
[2021-04-22] MEDS: metFORMIN 500 MG (GLUCOPHAGE) TAB PO SCH ×2 (07:56→20:36)
[2021-04-22] MEDS: KCL 10 MEQ TAB (MICRO K) PO SCH ×3 (07:56→17:39)
[2021-04-22] MEDS: PANTOPRAZOLE 40 MG (PROTONIX) TAB PO SCH (07:56)
[2021-04-22] MEDS: DAKIN'S 1/4 STRENGTH (0.125%) 237 ML BTL TOP SCH (07:57)
[2021-04-22] MEDS: DOCUSATE SODIUM 100 MG (COLACE) CAP PO SCH ×2 (07:59→19:14)
[2021-04-22] MEDS: polyethylene glycoL POWDER 17 GM (MIRALAX) PACK PO SCH ×2 (07:59→19:15)
[2021-04-22] MEDS: SENNA W/DOCUSATE (SENOKOT S) TABLET PO SCH ×2 (07:59→19:15)
[2021-04-22] MEDS: IRON SUCROSE 200 MG/10 ML (VENOFER) VIAL IV SCH (13:43)
[2021-04-22] MEDS: oxyCODONE/APAP 7.5-325 MG (PERCOCET 7.5) TABLET PO PRN ×2 (13:43→20:36)
[2021-04-22] MEDS: SENNOSIDES 8.6 MG (SENOKOT) TAB PO SCH (19:15)
[2021-04-22 20:19] VITALS: BP 120/76
[2021-04-23] MEDS: CATHETER FLUSH 10 ML SYR IV SCH ×3 (05:13→21:57)
[2021-04-23] MEDS: FUROSEMIDE 20 MG (LASIX) TAB PO SCH ×2 (06:06→17:29)
[2021-04-23 06:47] LABS: BASOPHILS # (AUTO) 0.1 10^3/uL (0.0-0.1); BASOPHILS % (AUTO) 1 % (0-10); EOSINOPHILS # (AUTO) 0.5 10^3/uL (0.0-0.3); EOSINOPHILS % (AUTO) 4 % (0-10); HEMATOCRIT 31 % (40-54); HEMOGLOBIN 9.9 g/dL (13.3-17.7); LYMPHOCYTES # (AUTO) 1.2 10^3/uL (1.0-4.0); LYMPHOCYTES % (AUTO) 8 % (12-44); MEAN CORPUSCULAR HEMOGLOBIN 32 pg (25-34); MEAN CORPUSCULAR HGB CONC 32 g/dL (32-36); MEAN CORPUSCULAR VOLUME 98 fL (80-99); MEAN PLATELET VOLUME 9.7 fL (9.0-12.2); MONOCYTES # (AUTO) 1.3 10^3/uL (0.0-1.0); MONOCYTES % (AUTO) 9 % (0-12); NEUTROPHILS # (AUTO) 10.7 10^3/uL (1.8-7.8); NEUTROPHILS % (AUTO) 76 % (42-75); PLATELET COUNT 591 10^3/uL (130-400); WHITE BLOOD COUNT 14.1 10^3/uL (4.3-11.0)
[2021-04-23 07:28] LABS: ALBUMIN 3.7 GM/DL (3.2-4.5); BILIRUBIN,TOTAL 0.4 MG/DL (0.1-1.0); CALCIUM 9.6 MG/DL (8.5-10.1); CREATININE SERUM 0.92 MG/DL (0.60-1.30); TOTAL PROTEIN 6.5 GM/DL (6.4-8.2)
[2021-04-23 07:47] LABS: EOSINOPHILS % (MANUAL) 3 %; LYMPHOCYTES % (MANUAL) 8 %; MONOCYTES % (MANUAL) 8 %; NEUTROPHILS % (MANUAL) 81 %; POIKILOCYTOSIS SLIGHT
[2021-04-23] MEDS: metFORMIN 500 MG (GLUCOPHAGE) TAB PO SCH ×2 (07:53→20:48)
[2021-04-23] MEDS: MULTIVIT W/MINERALS TAB (THERAGRAN M) PO SCH (07:53)
[2021-04-23] MEDS: oxyCODONE/APAP 7.5-325 MG (PERCOCET 7.5) TABLET PO PRN ×4 (07:53→21:57)
[2021-04-23] MEDS: EMPAGLIFLOZIN 10 MG TABLET (JARDIANCE) PO SCH (07:53)
[2021-04-23] MEDS: PANTOPRAZOLE 40 MG (PROTONIX) TAB PO SCH (07:53)
[2021-04-23] MEDS: KCL 10 MEQ TAB (MICRO K) PO SCH ×3 (07:53→17:29)
[2021-04-23] MEDS: SENNA W/DOCUSATE (SENOKOT S) TABLET PO SCH ×2 (07:54→20:49)
[2021-04-23] MEDS: DAKIN'S 1/4 STRENGTH (0.125%) 237 ML BTL TOP SCH (07:54)
[2021-04-23] MEDS: DOCUSATE SODIUM 100 MG (COLACE) CAP PO SCH ×2 (07:55→20:48)
[2021-04-23] MEDS: polyethylene glycoL POWDER 17 GM (MIRALAX) PACK PO SCH ×2 (07:55→20:49)
[2021-04-23 08:00] VITALS: BP 138/76
--- NOTE | 2021-04-23 09:11 | Occupational Ther Daily Note ---
OT Current Status-Daily Note Subjective Pt alert, lying in bed. Pt agrees to therapy. Pt c/o L stump pain, did not rate. PT has made pt up ad yana. Mental Status/Objective Patient Orientation: Person, Place, Time, Situation Attachments: IV (PICC) ADL-Treatment Pt agrees to shower. Pt up ad yana, transfers to all surfaces independent with hand holds. Pt completes toileting independently. Pt completes shower independently sitting on shower bench and using hand held shower, grabbars and LH sponge. Independent with gathering clothing at w/c level and dressing, doffs sock without AE. Uses grabbars to stabilize self while standing to hike pants over hips then used sock aide to don sock. Independent with eating and oral care(sitting at sink). Therapy Code Descriptions/Definitions Functional [place] Measure: 0=Not Assessed/NA 4=Minimal Assistance 1=Total Assistance 5=Supervision or Setup 2=Maximal Assistance 6=Modified [place] 3=Moderate Assistance 7=Complete IndependenceSCALE: Activities may be completed with or without assistive devices. 5-Fbzvfcmzdh-yqhmhkx completes the activity by him/herself with no assistance from a helper. 5-Set-up or Clean-up Assistance-helper sets up or cleans up; patient completes activity. [place] assists only prior to or following the activity. 4-Supervision or Touching Assistance-helper provides verbal cues and/or touching/steadying and/or contact guard assistance as patient completes activity. Assistance may be provided throughout the activity or intermittently. 3-Partial/Moderate Assistance-helper does LESS THAN HALF the effort. [place] lifts, holds or supports trunk or limbs, but provides less than half the effort. 2-Substantial/Maximal Assistance-helper does MORE THAN HALF the effort. [place] lifts or holds trunk or limbs and provides more than half the effort. 3-Sqvrzehzd-grsdxr does ALL the effort. Patient does none of the effort to complete the activity. Or, the assistance of 2 or more helpers is required for the patient to complete the activity. If activity was not attempted, code reason: 7-Patient Refused. 9-Not Applicable-not attempted and the patient did not perform the activity before the current illness, exacerbation or injury. 10-Not Attempted due to Environmental Limitations-(lack of equipment, weather restraints, etc.). 88-Not Attempted due to Medical Conditions or Safety Concerns. Eating (QC): 6 Oral Hygiene (QC): 6 Shower/Bathe Self (QC): 6 Upper Body Dressing (QC): 6 Lower Body Dressing (QC): 6 On/Off Footwear: 6 Toileting Hygiene (QC): 6 Toilet Transfer (QC): 6 Pt able to use tub bench to transfer into tub and also completes transfer into tub by positioning w/c perpendicular to tub, places R LE into tub and uses grabbars/w/c arm to push/pull to stand then SPT to bench. Other Treatment Pt completes 15 min on arm bike at 20 romero resistance without breaks to increase strength and activity tolerance for daily functional tasks. After session, pt lying in bed with call light/phone in reach. All needs met in room. OT Short Term Goals Short Term Goals Time Frame: Apr 25, 2021 Toileting hygiene: 4 Shower/bathe self: 5 Upper body dressin Lower body dressin OT Starting Gate Driver Goals Starting Gate Driver Goals Time Frame: May 04, 2021 Eating (QC): 6 Oral Hygiene (QC): 6 Toileting Hygiene (QC): 6 Shower/Bathe Self (QC): 6 Upper Body Dressing (QC): 6 Lower Body Dressing (QC): 6 On/Off Footwear (QC): 6 Additional Goals: 1-Demonstrate ADL Tasks, 2-Verbalize Understanding, 3- ImproveStrength/Deniz 1=Demonstrate adherence to instructed precautions during ADL tasks. 2=Patient will verbalize/demonstrate understanding of assistive devices/modifications for ADL. 3=Patient will improve strength/tolerance for activity to enable patient to perform ADL's. OT Education/Plan Problem List/Assessment Assessment: Decreased Activ Tolerance, Decreased UE Strength, Impaired Self- Care Skills Discharge Recommendations Plan/Recommendations: Continue POC Treatment Plan/Plan of Care Patient would benefit from OT for education, treatment and training to promote independence in ADL's, mobility, safety and/or upper extremity function for ADL's. Plan of Care: ADL Retraining, Functional Mobility, Group Exercise/Act as Ind, UE Funct Exercise/Act Treatment Duration: May 04, 2021 Frequency: At least 5 of 7 days/Wk (IRF) Estimated Hrs Per Day: 1.5 hours per day Agreement: Yes Rehab Potential: Fair Time/GCodes Start Time: 08:30 Stop Time: 10:00 Total Time Billed (hr/min): 90 Billed Treatment Time 1 visit-ADL 4 (60 min) FA 1 (15 min) EX 1 (15 min) FLORENCE CHIRINOS Apr 23, 2021 09:11
--- NOTE | 2021-04-23 09:51 | PM&R Progress Note ---
Subjective HPI/CC On Admission Date Seen by Provider: Apr 23, 2021 Time Seen by Provider: 10:00 Subjective/Events-last exam 04/23/21: Pt doing really well Steri-strips are still intact where the bleeding area was from the amputation site No bleeding currently Iron infusions have completed 04/22/21: Patient feels well No bleeding Off blood thinners Dressing changes reveal no bleeding 04/21/2021: Patient doing really well Incision bleeding All blood thinners have been held for 4 days No pain reported 04/20/2021: Patient doing pretty well Incision bleeding again Up ad yana. per PT Checked meds and labs 04/19/2021: Pt sleeping right now Loose stools we are holding laxatives Holding Eliquis, Plavix and Aspirin due to significant bleeding from the incision site Checked meds and labs 04/18/2021: Pt is doing about the same Bleeding from the wound so Eliquis and Aspirin are held Midline is helping with the iron infusions Diarrhea is noted, holding the laxative WBC is 15.6 Hgb 9.2 04/17/2021: Pt doing a lot better Bowels moved yesterday Holding Lisinopril and Metoprolol due to hypotension Mild dizziness noted Small nose bleed last night maintained on saline nasal spray Will give amputation society information to him 04/16/2021: Pt doing well Hgb 7.8 Midline will be placed for iron infusions Incision looks good Potassium 3.1 supplementing 20mEq TID 04/15/2021: Patient doing pretty well Lightheadedness noted Iron infusions given for acute blood loss anemia Checking labs tomorrow may need transfusion Stopping Accu-Cheks since they are all normal 04/14/2021: Patient doing well Denies any new issues Pain is well controlled Bowels moved today Iron infusions maintained Midline will be placed 04/13/2021: Patient settling in White count elevated just as it was at [place] No fever Wound care managing dressing Subtle crackle left lower lobe Smoking cessation Encouraged to use incentive spirometer Iron low will start Venofer Review of Systems General: Fatigue, Malaise Musculoskeletal: leg pain Objective Exam Vital Signs Vital Signs Date Time Temp Pulse Resp B/P (MAP) Pulse Ox O2 Delivery O2 Flow Rate FiO2 04/23/21 21:50 96 Room Air 04/23/21 20:00 36.6 90 18 134/71 (92) Capillary Refill : General Appearance: No Apparent Distress, WD/WN HEENT: PERRL/EOMI; No Photophobia Neck: Full Range of Motion, Non Tender, Supple Respiratory: Lungs Clear, Normal Breath Sounds, No Accessory Muscle Use, No Respiratory Distress Cardiovascular: Regular Rate, Rhythm, No Edema, No Gallop, No JVD, No Murmur, Normal Peripheral Pulses Gastrointestinal: Normal Bowel Sounds, No Organomegaly, No Pulsatile Mass, Non Tender, Soft Back: Normal Inspection, No CVA Tenderness, No Vertebral Tenderness Extremity: Normal Capillary Refill, Non Tender, No Calf Tenderness, No Pedal Edema, Other (Bleeding from lateral aspect of incision site from AKA. Bleeding is worse than it was yesterday. 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 FIM Transfers Therapy Code Descriptions/Definitions Functional [place] Measure: 0=Not Assessed/NA 4=Minimal Assistance 1=Total Assistance 5=Supervision or Setup 2=Maximal Assistance 6=Modified [place] 3=Moderate Assistance 7=Complete IndependenceSCALE: Activities may be completed with or without assistive devices. 7-Xcirkfmzfk-pwzyzat completes the activity by him/herself with no assistance from a helper. 5-Set-up or Clean-up Assistance-helper sets up or cleans up; patient completes activity. [place] assists only prior to or following the activity. 4-Supervision or Touching Assistance-helper provides verbal cues and/or touching/steadying and/or contact guard assistance as patient completes activity. Assistance may be provided throughout the activity or intermittently. 3-Partial/Moderate Assistance-helper does LESS THAN HALF the effort. [place] lifts, holds or supports trunk or limbs, but provides less than half the effort. 2-Substantial/Maximal Assistance-helper does MORE THAN HALF the effort. [place] lifts or holds trunk or limbs and provides more than half the effort. 8-Rqyahvvzu-xjpuyb does ALL the effort. Patient does none of the effort to complete the activity. Or, the assistance of 2 or more helpers is required for the patient to complete the activity. If activity was not attempted, code reason: 7-Patient Refused. 9-Not Applicable-not attempted and the patient did not perform the activity before the current illness, exacerbation or injury. 10-Not Attempted due to Environmental Limitations-(lack of equipment, weather restraints, etc.). 88-Not Attempted due to Medical Conditions or Safety Concerns. Roll Left to Right (QC): 6 Sit to Lying (QC): 6 Sit to Stand (QC): 6 Chair/Mdi-lb-Qscnq Xfer(QC): 6 Car Transfer (QC): 4 Gait Training Does the Patient Walk?: Yes Distance: 24' Walk 10 feet (QC): 4 Walk 50 ft with 2 Turns(QC): 88 Walk 150 ft (QC): 88 Walking 10ft/uneven surface-QC: 88 Gait Persons Needed: 1 Gait Assistive Device: Parallel Bars Wheelchair Training Does the Pt Use a Wheelchair?: Yes Distance: 150' Wheel 50 ft with 2 turns (QC): 6 Wheel 150 ft (QC): 6 Type of Wheelchair: Manual Stair Training 1 Step (curb) (QC): 88 4 Steps (QC): 88 12 Steps (QC): 88 Balance Picking up an Object (QC): 4 ADL-Treatment Eating (QC): 6 (Per clinical judgment.) Oral Hygiene (QC): 6 Bathing Location: L Arm, R Arm, L Lower Leg (including foot), R Lower Leg (including foot) (AKA), Chest, Abdomen, Perineal Area Shower/Bathe Self (QC): 6 Upper Body Dressing (QC): 5 Lower Body Dressing (QC): 5 On/Off Footwear (QC): 5 Toileting Hygiene (QC): 6 Toilet Transfer (QC): 6 Assessment/Plan Assessment and Plan Assess & Plan/Chief Complaint Assessment: 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 Previous smoker Right lower extremity wounds Leukocytosis due to stress from amputation Diabetes Hypertension Acute blood loss anemia with iron deficiency Left lower lobe crackle on 04/13/2021 resolved Bleeding from incision site held anticoagulation and held Plavix and aspirin 04/19/2021 Plan: Supportive care Rehab protocol Pain meds 04/13/2021: Incentive spirometer Iron infusion 04/14/21: Iron infusions B12 supplement 04/15/2021: Check labs in the morning Maintain iron infusion 04/16/2021: Supportive care Iron infusions Midline placement 04/17/2021: Iron infusions Amputation site information for support 04/18/2021: Hold anticoagulants due to bleeding Supportive care 04/19/2021: Blood thinners due to incision bleeding 04/20/2021: Supportive care Monitor bleeding from incision site 04/21/2021: Monitor bleeding from incision site Aggressive therapy 04/22/21: Monitor closely Labs in am 04/23/21: Supportive care Monitor closely (1) Above knee amputation of left lower extremity CHRISTOPHE HERNANDEZ DO Apr 23, 2021 09:51
--- NOTE | 2021-04-23 11:24 | Physical Therapy Daily Note ---
PT Daily Note-Current Subjective Patient in bed pre tx, agrees to PT, has 3/10 pain in left leg. Appearance Patient in WC in room post tx, he is independent in his room. Mental Status Patient Orientation: Normal For Age Transfers SCALE: Activities may be completed with or without assistive devices. 7-Qmytecijfc-ngdsklb completes the activity by him/herself with no assistance from a helper. 5-Set-up or Clean-up Assistance-helper sets up or cleans up; patient completes activity. [place] assists only prior to or following the activity. 4-Supervision or Touching Assistance-helper provides verbal cues and/or touching/steadying and/or contact guard assistance as patient completes activity. Assistance may be provided throughout the activity or intermittently. 3-Partial/Moderate Assistance-helper does LESS THAN HALF the effort. [place] lifts, holds or supports trunk or limbs, but provides less than half the effort. 2-Substantial/Maximal Assistance-helper does MORE THAN HALF the effort. [place] lifts or holds trunk or limbs and provides more than half the effort. 6-Lyroyvqgn-flnwvp does ALL the effort. Patient does none of the effort to c omplete the activity. Or, the assistance of 2 or more helpers is required for the patient to complete the activity. If activity was not attempted, code reason: 7-Patient Refused. 9-Not Applicable-not attempted and the patient did not perform the activity before the current illness, exacerbation or injury. 10-Not Attempted due to Environmental Limitations-(lack of equipment, weather restraints, etc.). 88-Not Attempted due to Medical Conditions or Safety Concerns. Roll Left & Right (QC): 6 Sit to Lying (QC): 6 Lying to Sitting/Side of Bed(Q: 6 Sit to Stand (QC): 6 Chair/Yam-xh-Tgswo Xfer(QC): 6 Gait Training Does the Patient Walk?: Yes Distance: 40'x2, 20' Walk 10 feet (QC): 4 Gait Persons Needed: 1 Gait Assistive Device: FWW CGA, good step control and coordination, slow and steady ambulation Wheelchair Training Does the Pt Use a Wheelchair?: Yes Wheel 50 ft with 2 turns (QC): 6 Wheel 150 ft (QC): 6 Type of Wheelchair: Manual 300', 120' Exercises RLE LAQ for 5 min with 2# ankle weight, sit to stands from slightly elevated therapy table 3 sets of 10, prone hip stretch 5 min NuStep Minutes: 15 NuStep Workload: 5 Treatments bed mobility and transfers, ambulation, stretching, strengthening, WC mobility Assessment Current Status: Fair Progress good improvement in ambulation, no obvious bleeding from left residual limb PT Short Term Goals Short Term Goals Time Frame: Apr 19, 2021 Roll Left & Right: 6 Sit to lyin Lying to sitting on side of be: 6 Sit to stand: 4 Chair/ryu-pe-dvgcq transfer: 4 (SBA) Walk 10 feet: 4 Walk 50 feet with two turns: 4 PT Construction Coordinator Goals Custodial Goals PT Construction Coordinator Goals Time Frame: May 03, 2021 Roll Left & Right (QC): 6 Sit to Lying (QC): 6 Lying-Sitting on Side/Bed(QC): 6 Sit to Stand (QC): 5 Chair/Bhq-cu-Bmxja Xfer(QC): 5 Toilet Transfer (QC): 5 Car Transfer (QC): 5 Does the Patient Walk: Yes Walk 10 feet (QC): 5 Walk 50ft with 2 Turns (QC): 5 Walk 150 ft (QC): 88 Walking 10ft on Uneven Surface: 4 1 Step (curb) (QC): 4 4 Steps (QC): 4 12 Steps (QC): 88 Picking up an Object (QC): 5 Wheel 50 feet with 2 turns (QC: 6 Wheel 150 feet: 6 PT Plan Problem List Problem List: Activity Tolerance, Functional Strength, Safety, Balance, Gait, Transfer, Bed Mobility, ROM Treatment/Plan Treatment Plan: Continue Plan of Care Treatment Plan: Bed Mobility, Education, Functional Activity Deniz, Functional Strength, Group Therapy, Gait, Safety, Therapeutic Exercise, Transfers Treatment Duration: May 03, 2021 Frequency: At least 5 of 7 days/Wk (IRF) Estimated Hrs Per Day: 1.5 hours per day Patient and/or Family Agrees t: Yes Safety Risks/Education Patient Education: Gait Training, Transfer Techniques, Correct Positioning, W/C Management, Safety Issues Teaching Recipient: Patient Teaching Methods: Demonstration, Discussion Response to Teaching: Reinforcement Needed Time/GCodes Time In: 1000 Time Out: 1130 Total Billed Treatment Time: 90 Total Billed Treatment 1 visit EX 30' FA 60' ROSEMARY CABA PT Apr 23, 2021 11:24
[2021-04-23] MEDS: RT--FLUTICASONE/SALMETEROL 113-14 (AIRDUO RespiCLICK) IH SCH ×2 (14:15→21:07)
[2021-04-23 20:00] VITALS: BP 134/71
[2021-04-23] MEDS: SENNOSIDES 8.6 MG (SENOKOT) TAB PO SCH (20:49)
[2021-04-24] MEDS: CATHETER FLUSH 10 ML SYR IV SCH ×3 (06:11→22:08)
[2021-04-24] MEDS: FUROSEMIDE 20 MG (LASIX) TAB PO SCH ×2 (06:11→17:31)
[2021-04-24] MEDS: oxyCODONE/APAP 7.5-325 MG (PERCOCET 7.5) TABLET PO PRN ×4 (06:12→20:58)
--- NOTE | 2021-04-24 06:14 | PM&R Progress Note ---
Subjective HPI/CC On Admission Date Seen by Provider: Apr 24, 2021 Time Seen by Provider: 09:30 Subjective/Events-last exam 04/24/21: Pt is doing a lot better Ready for discharge A bad limb per PT Transfers okay Percocet taken BID for pain No bleeding per stump BM yesterday 04/23/21: Pt doing really well Steri-strips are still intact where the bleeding area was from the amputation site No bleeding currently Iron infusions have completed 04/22/21: Patient feels well No bleeding Off blood thinners Dressing changes reveal no bleeding 04/21/2021: Patient doing really well Incision bleeding All blood thinners have been held for 4 days No pain reported 04/20/2021: Patient doing pretty well Incision bleeding again Up ad yana. per PT Checked meds and labs 04/19/2021: Pt sleeping right now Loose stools we are holding laxatives Holding Eliquis, Plavix and Aspirin due to significant bleeding from the incision site Checked meds and labs 04/18/2021: Pt is doing about the same Bleeding from the wound so Eliquis and Aspirin are held Midline is helping with the iron infusions Diarrhea is noted, holding the laxative WBC is 15.6 Hgb 9.2 04/17/2021: Pt doing a lot better Bowels moved yesterday Holding Lisinopril and Metoprolol due to hypotension Mild dizziness noted Small nose bleed last night maintained on saline nasal spray Will give amputation society information to him 04/16/2021: Pt doing well Hgb 7.8 Midline will be placed for iron infusions Incision looks good Potassium 3.1 supplementing 20mEq TID 04/15/2021: Patient doing pretty well Lightheadedness noted Iron infusions given for acute blood loss anemia Checking labs tomorrow may need transfusion Stopping Accu-Cheks since they are all normal 04/14/2021: Patient doing well Denies any new issues Pain is well controlled Bowels moved today Iron infusions maintained Midline will be placed 04/13/2021: Patient settling in White count elevated just as it was at [place] No fever Wound care managing dressing Subtle crackle left lower lobe Smoking cessation Encouraged to use incentive spirometer Iron low will start Venofer Review of Systems General: Fatigue, Malaise Objective Exam Vital Signs Vital Signs Date Time Temp Pulse Resp B/P (MAP) Pulse Ox O2 Delivery O2 Flow Rate FiO2 1/4/22 22:16 96 Room Air 04/24/21 20:00 36.7 77 18 137/88 (104) Capillary Refill : General Appearance: No Apparent Distress, WD/WN, Chronically ill HEENT: PERRL/EOMI; No Photophobia Neck: Full Range of Motion, Non Tender, Supple Respiratory: Chest Non Tender, Lungs Clear, Normal Breath Sounds, No Accessory Muscle Use, No Respiratory Distress Cardiovascular: Regular Rate, Rhythm, No Edema, No Gallop, No JVD, No Murmur, Normal Peripheral Pulses Gastrointestinal: Normal Bowel Sounds, No Organomegaly, No Pulsatile Mass, Non Tender, Soft Back: Normal Inspection, No CVA Tenderness, No Vertebral Tenderness Extremity: Normal Capillary Refill, Non Tender, No Calf Tenderness, No Pedal Edema, Other (Bleeding from lateral aspect of incision site from AKA. Bleeding is worse than it was yesterday. Incision site appears to be otherwise healing well) Neurologic/Psychiatric: Alert, Oriented x3, No Motor/Sensory Deficits, Normal Mood/Affect, coil placer II-XII Norm as Tested, Abnormal Gait Skin: Normal Color, Warm/Dry Lymphatic: No Adenopathy (cervical) Results/Procedures Lab Patient resulted labs reviewed. FIM Transfers Therapy Code Descriptions/Definitions Functional [place] Measure: 0=Not Assessed/NA 4=Minimal Assistance 1=Total Assistance 5=Supervision or Setup 2=Maximal Assistance 6=Modified [place] 3=Moderate Assistance 7=Complete IndependenceSCALE: Activities may be completed with or without assistive devices. 0-Lyqkwzymmg-mroworu completes the activity by him/herself with no assistance from a helper. 5-Set-up or Clean-up Assistance-helper sets up or cleans up; patient completes activity. [place] assists only prior to or following the activity. 4-Supervision or Touching Assistance-helper provides verbal cues and/or touching/steadying and/or contact guard assistance as patient completes activity. Assistance may be provided throughout the activity or intermittently. 3-Partial/Moderate Assistance-helper does LESS THAN HALF the effort. [place] lifts, holds or supports trunk or limbs, but provides less than half the effort. 2-Substantial/Maximal Assistance-helper does MORE THAN HALF the effort. [place] lifts or holds trunk or limbs and provides more than half the effort. 5-Fpmiwpkdk-tfdrqn does ALL the effort. Patient does none of the effort to complete the activity. Or, the assistance of 2 or more helpers is required for the patient to complete the activity. If activity was not attempted, code reason: 7-Patient Refused. 9-Not Applicable-not attempted and the patient did not perform the activity before the current illness, exacerbation or injury. 10-Not Attempted due to Environmental Limitations-(lack of equipment, weather restraints, etc.). 88-Not Attempted due to Medical Conditions or Safety Concerns. Roll Left to Right (QC): 6 Sit to Lying (QC): 6 Sit to Stand (QC): 6 Chair/Che-ad-Fnzqq Xfer(QC): 6 Car Transfer (QC): 4 Gait Training Does the Patient Walk?: Yes Distance: 40'x2, 20' Walk 10 feet (QC): 4 Walk 50 ft with 2 Turns(QC): 88 Walk 150 ft (QC): 88 Walking 10ft/uneven surface-QC: 88 Gait Persons Needed: 1 Gait Assistive Device: FWW Wheelchair Training Does the Pt Use a Wheelchair?: Yes Distance: 150' Wheel 50 ft with 2 turns (QC): 6 Wheel 150 ft (QC): 6 Type of Wheelchair: Manual Stair Training 1 Step (curb) (QC): 88 4 Steps (QC): 88 12 Steps (QC): 88 Balance Picking up an Object (QC): 4 ADL-Treatment Eating (QC): 6 Oral Hygiene (QC): 6 Bathing Location: L Arm, R Arm, L Lower Leg (including foot), R Lower Leg (including foot) (AKA), Chest, Abdomen, Perineal Area Shower/Bathe Self (QC): 6 Upper Body Dressing (QC): 6 Lower Body Dressing (QC): 6 On/Off Footwear (QC): 6 Toileting Hygiene (QC): 6 Toilet Transfer (QC): 6 Assessment/Plan Assessment and Plan Assess & Plan/Chief Complaint Assessment: 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 Previous smoker Right lower extremity wounds Leukocytosis due to stress from amputation Diabetes Hypertension Acute blood loss anemia with iron deficiency Left lower lobe crackle on 04/13/2021 resolved Bleeding from incision site held anticoagulation and held Plavix and aspirin 04/19/2021 Plan: Supportive care Rehab protocol Pain meds 04/13/2021: Incentive spirometer Iron infusion 04/14/21: Iron infusions B12 supplement 04/15/2021: Check labs in the morning Maintain iron infusion 04/16/2021: Supportive care Iron infusions Midline placement 04/17/2021: Iron infusions Amputation site information for support 04/18/2021: Hold anticoagulants due to bleeding Supportive care 04/19/2021: Blood thinners due to incision bleeding 04/20/2021: Supportive care Monitor bleeding from incision site 04/21/2021: Monitor bleeding from incision site Aggressive therapy 04/22/21: Monitor closely Labs in am 04/23/21: Supportive care Monitor closely 04/24/21: Supportive care Monitor closely (1) Above knee amputation of left lower extremity CHRISTOPHE HERNANDEZ DO Apr 24, 2021 06:14
[2021-04-24] MEDS: RT--FLUTICASONE/SALMETEROL 113-14 (AIRDUO RespiCLICK) IH SCH ×2 (06:58→22:08)
[2021-04-24 07:40] VITALS: BP 135/81
--- NOTE | 2021-04-24 07:56 | Occupational Ther Daily Note ---
OT Current Status-Daily Note Subjective Pt alert, sitting up in bed. Pt agrees to therapy. No c/o pain. Mental Status/Objective Patient Orientation: Person, Place, Time, Situation Attachments: IV (PICC) ADL-Treatment Pt declines shower. Independent with toileting, dressing, oral care, eating at w/c level. Therapy Code Descriptions/Definitions Functional [place] Measure: 0=Not Assessed/NA 4=Minimal Assistance 1=Total Assistance 5=Supervision or Setup 2=Maximal Assistance 6=Modified [place] 3=Moderate Assistance 7=Complete IndependenceSCALE: Activities may be completed with or without assistive devices. 7-Ohfrrutecg-eodesth completes the activity by him/herself with no assistance from a helper. 5-Set-up or Clean-up Assistance-helper sets up or cleans up; patient completes activity. [place] assists only prior to or following the activity. 4-Supervision or Touching Assistance-helper provides verbal cues and/or tanisha zack/steadying and/or contact guard assistance as patient completes activity. Assistance may be provided throughout the activity or intermittently. 3-Partial/Moderate Assistance-helper does LESS THAN HALF the effort. [place] lifts, holds or supports trunk or limbs, but provides less than half the effort. 2-Substantial/Maximal Assistance-helper does MORE THAN HALF the effort. [place] lifts or holds trunk or limbs and provides more than half the effort. 7-Qpdaggxxr-eeanxw does ALL the effort. Patient does none of the effort to complete the activity. Or, the assistance of 2 or more helpers is required for the patient to complete the activity. If activity was not attempted, code reason: 7-Patient Refused. 9-Not Applicable-not attempted and the patient did not perform the activity before the current illness, exacerbation or injury. 10-Not Attempted due to Environmental Limitations-(lack of equipment, weather restraints, etc.). 88-Not Attempted due to Medical Conditions or Safety Concerns. Eating (QC): 6 Oral Hygiene (QC): 6 Upper Body Dressing (QC): 6 Lower Body Dressing (QC): 6 On/Off Footwear: 6 (using sock aide to don, no AE to doff) Toileting Hygiene (QC): 6 Toilet Transfer (QC): 6 Other Treatment Pt propelled w/c to therapy gym to complete B UE pulleys with 1# wrist weights applied to wrists for 8 min working on strength and activity tolerance. Working on w/c mobility, B UE strength and functional mobility, pt completed w/c obstacle coarse then reaching/bending to order picker/assembler cones from chest height to floor without difficulty. Pt then was able to gather cones in ARU kitchen at d ifferent heights. Pt stood to retrieve cones from cabinets while stabilizing self with counter and shelving. After therapy, pt sitting in w/c with call light/phone in reach. All needs met in room. OT Short Term Goals Short Term Goals Time Frame: Apr 25, 2021 Toileting hygiene: 4 Shower/bathe self: 5 Upper body dressin Lower body dressin OT Traffic Analysis Technician Goals Traffic Analysis Technician Goals Time Frame: May 04, 2021 Eating (QC): 6 Oral Hygiene (QC): 6 Toileting Hygiene (QC): 6 Shower/Bathe Self (QC): 6 Upper Body Dressing (QC): 6 Lower Body Dressing (QC): 6 On/Off Footwear (QC): 6 Additional Goals: 1-Demonstrate ADL Tasks, 2-Verbalize Understanding, 3-ImproveStrength/Deniz 1=Demonstrate adherence to instructed precautions during ADL tasks. 2=Patient will verbalize/demonstrate understanding of assistive devices/modifications for ADL. 3=Patient will improve strength/tolerance for activity to enable patient to perform ADL's. OT Education/Plan Problem List/Assessment Assessment: Decreased UE Strength, Impaired Funct Balance, Impaired Self-Care Skills Discharge Recommendations Plan/Recommendations: Continue POC Treatment Plan/Plan of Care Patient would benefit from OT for education, treatment and training to promote independence in ADL's, mobility, safety and/or upper extremity function for ADL's. Plan of Care: ADL Retraining, Functional Mobility, Group Exercise/Act as Ind, UE Funct Exercise/Act Treatment Duration: May 04, 2021 Frequency: At least 5 of 7 days/Wk (IRF) Estimated Hrs Per Day: 1.5 hours per day Agreement: Yes Rehab Potential: Fair Time/GCodes Start Time: 07:30 Stop Time: 09:00 Total Time Billed (hr/min): 90 Billed Treatment Time 1 visit-ADL 2 (30 min) FA 2 (30 min) EX 2 (30 min) FLORENCE CHIRINOS Apr 24, 2021 07:56
[2021-04-24] MEDS: KCL 10 MEQ TAB (MICRO K) PO SCH ×3 (09:04→17:31)
[2021-04-24] MEDS: metFORMIN 500 MG (GLUCOPHAGE) TAB PO SCH ×2 (09:04→20:58)
[2021-04-24] MEDS: PANTOPRAZOLE 40 MG (PROTONIX) TAB PO SCH (09:04)
[2021-04-24] MEDS: EMPAGLIFLOZIN 10 MG TABLET (JARDIANCE) PO SCH (09:04)
[2021-04-24] MEDS: MULTIVIT W/MINERALS TAB (THERAGRAN M) PO SCH (09:04)
--- NOTE | 2021-04-24 10:02 | Physical Therapy Daily Note ---
PT Daily Note-Current Subjective Pt sitting in [facility] in room with Nurse present upon arrival. Pt agrees to PT and feels good with how Therapy has been going, just wanting to find home. Pain Numeric Pain Scale: 3 Location: Incisional Location Body Site: Thigh Pain Description: Ache Mental Status Patient Orientation: Person, Place, Time, Situation Transfers SCALE: Activities may be completed with or without assistive devices. 0-Uqmpknbona-ecopntt completes the activity by him/herself with no assistance from a helper. 5-Set-up or Clean-up Assistance-helper sets up or cleans up; patient completes activity. [place] assists only prior to or following the activity. 4-Supervision or Touching Assistance-helper provides verbal cues and/or touching/steadying and/or contact guard assistance as patient completes activity. Assistance may be provided throughout the activity or intermittently. 3-Partial/Moderate Assistance-helper does LESS THAN HALF the effort. [place] lifts, holds or supports trunk or limbs, but provides less than half the effort. 2-Substantial/Maximal Assistance-helper does MORE THAN HALF the effort. [place] lifts or holds trunk or limbs and provides more than half the effort. 9-Hoitntecz-kkbwae does ALL the effort. Patient does none of the effort to complete the activity. Or, the assistance of 2 or more helpers is required for the patient to complete the activity. If activity was not attempted, code reason: 7-Patient Refused. 9-Not Applicable-not attempted and the patient did not perform the activity before the current illness, exacerbation or injury. 10-Not Attempted due to Environmental Limitations-(lack of equipment, weather restraints, etc.). 88-Not Attempted due to Medical Conditions or Safety Concerns. Sit to Stand (QC): 6 Weight Bearing Full Weight Bearing Wheelchair Training Does the Pt Use a Wheelchair?: Yes Wheel 50 ft with 2 turns (QC): 6 Wheel 150 ft (QC): 6 Type of Wheelchair: Manual Exercises Seated Therapy Exercises: Long arc quads NuStep Minutes: 15 NuStep Workload: 5 Treatments Pt takes morning meds to begin tx. Pt discusses feeling good about Therapy and what pt can do but needs to find housing that SW is assisting w/at this time. Pt propels [facility] in hallway then uses NuStep for 15m at WL 5. After short RB, pt completes LAQ for 5m w/2# ankle weight. Couple of RB during Ex. Pt takes RB then propels [facility] in hallway before returning to room to rest. All needs met, call light in hand. Assessment Current Status: Good Progress Pt is efficient w/[facility] and feels comfortable with transfers as well as [facility] mobility. Pt fatigues at times needing occasional short RB. PT Short Term Goals Short Term Goals Time Frame: Apr 19, 2021 Roll Left & Right: 6 Sit to lyin Lying to sitting on side of be: 6 Sit to stand: 4 Chair/cfr-mp-sbzij transfer: 4 (SBA) Walk 10 feet: 4 Walk 50 feet with two turns: 4 PT Jail Goals Jail Goals PT Retail Sales Assistant Goals Time Frame: May 03, 2021 Roll Left & Right (QC): 6 Sit to Lying (QC): 6 Lying-Sitting on Side/Bed(QC): 6 Sit to Stand (QC): 5 Chair/Qyr-xv-Azdzf Xfer(QC): 5 Toilet Transfer (QC): 5 Car Transfer (QC): 5 Does the Patient Walk: Yes Walk 10 feet (QC): 5 Walk 50ft with 2 Turns (QC): 5 Walk 150 ft (QC): 88 Walking 10ft on Uneven Surface: 4 1 Step (curb) (QC): 4 4 Steps (QC): 4 12 Steps (QC): 88 Picking up an Object (QC): 5 Wheel 50 feet with 2 turns (QC: 6 Wheel 150 feet: 6 PT Plan Treatment/Plan Treatment Plan: Continue Plan of Care Treatment Plan: Bed Mobility, Education, Functional Activity Deniz, Functional Strength, Group Therapy, Gait, Safety, Therapeutic Exercise, Transfers Treatment Duration: May 03, 2021 Frequency: At least 5 of 7 days/Wk (IRF) Estimated Hrs Per Day: 1.5 hours per day Patient and/or Family Agrees t: Yes Time/GCodes Time In: 900 Time Out: 1000 Total Billed Treatment Time: 60 Total Billed Treatment 1, [facility] (15m), EX x2 (30m) & FA (15m) KATE BREEN HOSIERY MENDER Apr 24, 2021 10:02
[2021-04-24] MEDS: DAKIN'S 1/4 STRENGTH (0.125%) 237 ML BTL TOP SCH (10:42)
[2021-04-24] MEDS: polyethylene glycoL POWDER 17 GM (MIRALAX) PACK PO SCH ×2 (11:51→21:10)
[2021-04-24] MEDS: DOCUSATE SODIUM 100 MG (COLACE) CAP PO SCH ×2 (11:51→21:10)
[2021-04-24] MEDS: SENNA W/DOCUSATE (SENOKOT S) TABLET PO SCH ×2 (11:51→21:10)
--- NOTE | 2021-04-24 13:52 | Physical Therapy Daily Note ---
PT Daily Note-Current Subjective Pt laying Supine in bed upon arrival. Pt agrees to PT and transfers to [facility]. Pain Numeric Pain Scale: 5-Moderate Pain Location: Incisional Pain Description: Ache Comment: Only w/putting wrap on L stump Mental Status Patient Orientation: Person, Place Attachments: Other-See Comments (Aeroplane Pilot for L LE) Transfers SCALE: Activities may be completed with or without assistive devices. 3-Vuetddlpis-engzufj completes the activity by him/herself with no assistance from a helper. 5-Set-up or Clean-up Assistance-helper sets up or cleans up; patient completes activity. [place] assists only prior to or following the activity. 4-Supervision or Touching Assistance-helper provides verbal cues and/or touching/steadying and/or contact guard assistance as patient completes activity. Assistance may be provided throughout the activity or intermittently. 3-Partial/Moderate Assistance-helper does LESS THAN HALF the effort. [place] lifts, holds or supports trunk or limbs, but provides less than half the effort. 2-Substantial/Maximal Assistance-helper does MORE THAN HALF the effort. [place] lifts or holds trunk or limbs and provides more than half the effort. 6-Iyxxwejht-wyaira does ALL the effort. Patient does none of the effort to complete the activity. Or, the assistance of 2 or more helpers is required for the patient to complete the activity. If activity was not attempted, code reason: 7-Patient Refused. 9-Not Applicable-not attempted and the patient did not perform the activity before the current illness, exacerbation or injury. 10-Not Attempted due to Environmental Limitations-(lack of equipment, weather restraints, etc.). 88-Not Attempted due to Medical Conditions or Safety Concerns. Sit to Stand (QC): 6 Weight Bearing Full Weight Bearing Gait Training Does the Patient Walk?: Yes Distance: 40x4, 50' Walk 10 feet (QC): 6 Walk 50 ft with 2 Turns(QC): 6 Gait Persons Needed: 1 Gait Assistive Device: FWW Wheelchair Training Does the Pt Use a Wheelchair?: Yes Wheel 50 ft with 2 turns (QC): 6 Type of Wheelchair: Manual Treatments Pt transfers to [facility] then propels [facility] to Therapy Gym. Pt stands and amb. in Gym, taking RB after each round. Pt takes another rest then amb. in hallway and back to room. Pt transfers to bed to rest. All needs met, call light in hand. Assessment Current Status: Good Progress Pt fatigues a little after amb. but recovers quickly. PT Short Term Goals Short Term Goals Time Frame: Apr 19, 2021 Roll Left & Right: 6 Sit to lyin Lying to sitting on side of be: 6 Sit to stand: 4 Chair/mae-oq-esvwh transfer: 4 (SBA) Walk 10 feet: 4 Walk 50 feet with two turns: 4 PT Mcc Goals Mcc Goals PT Cae Engineer Goals Time Frame: May 03, 2021 Roll Left & Right (QC): 6 Sit to Lying (QC): 6 Lying-Sitting on Side/Bed(QC): 6 Sit to Stand (QC): 5 Chair/Yio-bs-Dctpv Xfer(QC): 5 Toilet Transfer (QC): 5 Car Transfer (QC): 5 Does the Patient Walk: Yes Walk 10 feet (QC): 5 Walk 50ft with 2 Turns (QC): 5 Walk 150 ft (QC): 88 Walking 10ft on Uneven Surface: 4 1 Step (curb) (QC): 4 4 Steps (QC): 4 12 Steps (QC): 88 Picking up an Object (QC): 5 Wheel 50 feet with 2 turns (QC: 6 Wheel 150 feet: 6 PT Plan Treatment/Plan Treatment Plan: Continue Plan of Care Treatment Plan: Bed Mobility, Education, Functional Activity Deniz, Functional Strength, Group Therapy, Gait, Safety, Therapeutic Exercise, Transfers Treatment Duration: May 03, 2021 Frequency: At least 5 of 7 days/Wk (IRF) Estimated Hrs Per Day: 1.5 hours per day Patient and/or Family Agrees t: Yes Safety Risks/Education Patient Education: Gait Training Teaching Recipient: Patient Teaching Methods: Discussion Response to Teaching: Verbalize Understanding Time/GCodes Time In: 1315 Time Out: 1345 Total Billed Treatment Time: 30 Total Billed Treatment 1, GT x2 (30m) KATE BREEN PTA Apr 24, 2021 13:52
[2021-04-24 20:00] VITALS: BP 137/88
[2021-04-24] MEDS: SENNOSIDES 8.6 MG (SENOKOT) TAB PO SCH (21:10)
[2021-04-25] MEDS: oxyCODONE/APAP 7.5-325 MG (PERCOCET 7.5) TABLET PO PRN ×6 (00:39→21:48)
[2021-04-25] MEDS: CATHETER FLUSH 10 ML SYR IV SCH ×3 (06:28→21:02)
[2021-04-25] MEDS: FUROSEMIDE 20 MG (LASIX) TAB PO SCH ×2 (06:28→17:17)
[2021-04-25 07:28] VITALS: BP 132/82
--- NOTE | 2021-04-25 08:20 | Occupational Ther Daily Note ---
OT Current Status-Daily Note Subjective Pt alert, lying in bed. Pt agrees to therapy. Upon discussing with nrsg and nrsg reports pt has c/o 7-10/10 pain where top of stump respiratory care assistant was. Pt c/o pain with stump respiratory care assistant, LIZARRAGA took off and consulted with OTR/PT then reported to nrsg. Mental Status/Objective Patient Orientation: Person, Place, Time, Situation Attachments: IV (PICC) ADL-Treatment Pt independent with all ADLs at w/c level. Pt uses grabbars, shower bench, BSC, sock aid and winder tender for ADLs. Pt stated that there is an AE donation center in [place] that he is able to get most of his equipment from. Pt transferred back to bed from w/c for dressing changes and medications. Stump respiratory care assistant also applied at this time. Pt educated on reporting if respiratory care assistant is hurting and to tell nrsg or therapy. After session, pt sitting in recliner with call light/phone in reach. All needs met in room. Therapy Code Descriptions/Definitions Functional [place] Measure: 0=Not Assessed/NA 4=Minimal Assistance 1=Total Assistance 5=Supervision or Setup 2=Maximal Assistance 6=Modified [place] 3=Moderate Assistance 7=Complete IndependenceSCALE: Activities may be completed with or without assistive devices. 4-Upcnfsmtny-gnqtmim completes the activity by him/herself with no assistance from a helper. 5-Set-up or Clean-up Assistance-helper sets up or cleans up; patient completes activity. [place] assists only prior to or following the activity. 4-Supervision or Touching Assistance-helper provides verbal cues and/or touching/steadying and/or contact guard assistance as patient completes activity. Assistance may be provided throughout the activity or intermittently. 3-Partial/Moderate Assistance-helper does LESS THAN HALF the effort. [place] lifts, holds or supports trunk or limbs, but provides less than half the effort. 2-Substantial/Maximal Assistance-helper does MORE THAN HALF the effort. [place] lifts or holds trunk or limbs and provides more than half the effort. 8-Virplvomc-gfwftm does ALL the effort. Patient does none of the effort to complete the activity. Or, the assistance of 2 or more helpers is required for the patient to complete the activity. If activity was not attempted, code reason: 7-Patient Refused. 9-Not Applicable-not attempted and the patient did not perform the activity before the current illness, exacerbation or injury. 10-Not Attempted due to Environmental Limitations-(lack of equipment, weather restraints, etc.). 88-Not Attempted due to Medical Conditions or Safety Concerns. Eating (QC): 6 Oral Hygiene (QC): 6 Shower/Bathe Self (QC): 6 Upper Body Dressing (QC): 6 Lower Body Dressing (QC): 6 On/Off Footwear: 6 Toileting Hygiene (QC): 6 Toilet Transfer (QC): 6 Pt took increased time today due to fatigue from not sleeping well last night and residual pain in stump. OT Short Term Goals Short Term Goals Time Frame: Apr 25, 2021 Toileting hygiene: 4 Shower/bathe self: 5 Upper body dressin Lower body dressin OT Retirement Goals Retirement Goals Time Frame: May 04, 2021 Eating (QC): 6 (met) Oral Hygiene (QC): 6 (met) Toileting Hygiene (QC): 6 (met) Shower/Bathe Self (QC): 6 (met) Upper Body Dressing (QC): 6 (met) Lower Body Dressing (QC): 6 (met) On/Off Footwear (QC): 6 (met) Additional Goals: 1-Demonstrate ADL Tasks, 2-Verbalize Understanding, 3-ImproveStrength/Deniz 1=Demonstrate adherence to instructed precautions during ADL tasks. 2=Patient will verbalize/demonstrate understanding of assistive devices/modifications for ADL. 3=Patient will improve strength/tolerance for activity to enable patient to perform ADL's. OT Education/Plan Problem List/Assessment Assessment: Impaired Self-Care Skills Discharge Recommendations Plan/Recommendations: Continue POC Treatment Plan/Plan of Care Patient would benefit from OT for education, treatment and training to promote independence in ADL's, mobility, safety and/or upper extremity function for ADL's. Plan of Care: ADL Retraining, Functional Mobility, Group Exercise/Act as Ind, UE Funct Exercise/Act Treatment Duration: May 04, 2021 Frequency: At least 5 of 7 days/Wk (IRF) Estimated Hrs Per Day: 1.5 hours per day Agreement: Yes Rehab Potential: Fair Time/GCodes Start Time: 07:30 Stop Time: 09:00 Total Time Billed (hr/min): 90 Billed Treatment Time 1 visit-ADL 6 (90 min) FLORENCE CHIRINOS Apr 25, 2021 08:20
[2021-04-25] MEDS: DOCUSATE SODIUM 100 MG (COLACE) CAP PO SCH ×2 (08:50→19:22)
[2021-04-25] MEDS: SENNA W/DOCUSATE (SENOKOT S) TABLET PO SCH ×2 (08:50→19:23)
[2021-04-25] MEDS: polyethylene glycoL POWDER 17 GM (MIRALAX) PACK PO SCH ×2 (08:50→19:23)
[2021-04-25] MEDS: metFORMIN 500 MG (GLUCOPHAGE) TAB PO SCH ×2 (08:55→21:01)
[2021-04-25] MEDS: EMPAGLIFLOZIN 10 MG TABLET (JARDIANCE) PO SCH (08:55)
[2021-04-25] MEDS: PANTOPRAZOLE 40 MG (PROTONIX) TAB PO SCH (08:55)
[2021-04-25] MEDS: KCL 10 MEQ TAB (MICRO K) PO SCH ×3 (08:56→17:17)
[2021-04-25] MEDS: MULTIVIT W/MINERALS TAB (THERAGRAN M) PO SCH (08:56)
[2021-04-25] MEDS: DAKIN'S 1/4 STRENGTH (0.125%) 237 ML BTL TOP SCH (09:11)
--- NOTE | 2021-04-25 10:10 | PM&R Progress Note ---
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 painful Holding anticoagulation Plavix and Aspirin 04/24/21: Pt is doing a lot better Ready for discharge A bad limb per PT Transfers okay Percocet taken BID for pain No bleeding per stump BM yesterday 04/23/21: Pt doing really well Steri-strips are still intact where the bleeding area was from the amputation site No bleeding currently Iron infusions have completed 04/22/21: Patient feels well No bleeding Off blood thinners Dressing changes reveal no bleeding 04/21/2021: Patient doing really well Incision bleeding All blood thinners have been held for 4 days No pain reported 04/20/2021: Patient doing pretty well Incision bleeding again Up ad yana. per PT Checked meds and labs 04/19/2021: Pt sleeping right now Loose stools we are holding laxatives Holding Eliquis, Plavix and Aspirin due to significant bleeding from the incision site Checked meds and labs 04/18/2021: Pt is doing about the same Bleeding from the wound so Eliquis and Aspirin are held Midline is helping with the iron infusions Diarrhea is noted, holding the laxative WBC is 15.6 Hgb 9.2 04/17/2021: Pt doing a lot better Bowels moved yesterday Holding Lisinopril and Metoprolol due to hypotension Mild dizziness noted Small nose bleed last night maintained on saline nasal spray Will give amputation society information to him 04/16/2021: Pt doing well Hgb 7.8 Midline will be placed for iron infusions Incision looks good Potassium 3.1 supplementing 20mEq TID 04/15/2021: Patient doing pretty well Lightheadedness noted Iron infusions given for acute blood loss anemia Checking labs tomorrow may need transfusion Stopping Accu-Cheks since they are all normal 04/14/2021: Patient doing well Denies any new issues Pain is well controlled Bowels moved today Iron infusions maintained Midline will be placed 04/13/2021: Patient settling in White count elevated just as it was at [place] No fever Wound care managing dressing Subtle crackle left lower lobe Smoking cessation Encouraged to use incentive spirometer Iron low will start Venofer Review of Systems Musculoskeletal: leg pain Objective Exam Vital Signs Vital Signs Date Time Temp Pulse Resp B/P (MAP) Pulse Ox O2 Delivery O2 Flow Rate FiO2 04/25/21 21:13 Room Air 04/25/21 20:59 98 04/25/21 20:26 36.5 91 18 131/74 (93) Capillary Refill : General Appearance: No Apparent Distress, WD/WN, Chronically ill HEENT: PERRL/EOMI; No Photophobia Neck: Full Range of Motion, Non Tender, Supple Respiratory: Chest Non Tender, Lungs Clear, Normal Breath Sounds, No Accessory Muscle Use, No Respiratory Distress Cardiovascular: Regular Rate, Rhythm, No Edema, No Gallop, No JVD, No Murmur, Normal Peripheral Pulses Gastrointestinal: Normal Bowel Sounds, No Organomegaly, No Pulsatile Mass, Non Tender, Soft Back: Normal Inspection, No CVA Tenderness, No Vertebral Tenderness Extremity: Normal Capillary Refill, Non Tender, No Calf Tenderness, No Pedal Edema, Other (Bleeding from lateral aspect of incision site from AKA. Bleeding is worse than it was yesterday. 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 FIM Transfers Therapy Code Descriptions/Definitions Functional [place] Measure: 0=Not Assessed/NA 4=Minimal Assistance 1=Total Assistance 5=Supervision or Setup 2=Maximal Assistance 6=Modified [place] 3=Moderate Assistance 7=Complete IndependenceSCALE: Activities may be completed with or without assistive devices. 1-Wdvshdogmg-axnwmkx completes the activity by him/herself with no assistance from a helper. 5-Set-up or Clean-up Assistance-helper sets up or cleans up; patient completes activity. [place] assists only prior to or following the activity. 4-Supervision or Touching Assistance-helper provides verbal cues and/or touching/steadying and/or contact guard assistance as patient completes activity. Assistance may be provided throughout the activity or intermittently. 3-Partial/Moderate Assistance-helper does LESS THAN HALF the effort. [place] lifts, holds or supports trunk or limbs, but provides less than half the effort. 2-Substantial/Maximal Assistance-helper does MORE THAN HALF the effort. [place] lifts or holds trunk or limbs and provides more than half the effort. 6-Ahqtlxrbc-ndfjmo does ALL the effort. Patient does none of the effort to complete the activity. Or, the assistance of 2 or more helpers is required for the patient to complete the activity. If activity was not attempted, code reason: 7-Patient Refused. 9-Not Applicable-not attempted and the patient did not perform the activity before the current illness, exacerbation or injury. 10-Not Attempted due to Environmental Limitations-(lack of equipment, weather restraints, etc.). 88-Not Attempted due to Medical Conditions or Safety Concerns. Roll Left to Right (QC): 6 Sit to Lying (QC): 6 Sit to Stand (QC): 6 Chair/Oxn-qt-Nezsd Xfer(QC): 6 Car Transfer (QC): 4 Gait Training Does the Patient Walk?: Yes Distance: 40x4, 50' Walk 10 feet (QC): 6 Walk 50 ft with 2 Turns(QC): 6 Walk 150 ft (QC): 88 Walking 10ft/uneven surface-QC: 88 Gait Persons Needed: 1 Gait Assistive Device: FWW Wheelchair Training Does the Pt Use a Wheelchair?: Yes Distance: 150' Wheel 50 ft with 2 turns (QC): 6 Wheel 150 ft (QC): 6 Type of Wheelchair: Manual Stair Training 1 Step (curb) (QC): 88 4 Steps (QC): 88 12 Steps (QC): 88 Balance Picking up an Object (QC): 4 ADL-Treatment Eating (QC): 6 Oral Hygiene (QC): 6 Bathing Location: L Arm, R Arm, L Lower Leg (including foot), R Lower Leg (including foot) (AKA), Chest, Abdomen, Perineal Area Shower/Bathe Self (QC): 6 Upper Body Dressing (QC): 6 Lower Body Dressing (QC): 6 On/Off Footwear (QC): 6 Toileting Hygiene (QC): 6 Toilet Transfer (QC): 6 Assessment/Plan Assessment and Plan Assess & Plan/Chief Complaint Assessment: 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 Previous smoker Right lower extremity wounds Leukocytosis due to stress from amputation Diabetes Hypertension Acute blood loss anemia with iron deficiency Left lower lobe crackle on 04/13/2021 resolved Bleeding from incision site held anticoagulation and held Plavix and aspirin 04/19/2021 Plan: Supportive care Rehab protocol Pain meds 04/13/2021: Incentive spirometer Iron infusion 04/14/21: Iron infusions B12 supplement 04/15/2021: Check labs in the morning Maintain iron infusion 04/16/2021: Supportive care Iron infusions Midline placement 04/17/2021: Iron infusions Amputation site information for support 04/18/2021: Hold anticoagulants due to bleeding Supportive care 04/19/2021: Blood thinners due to incision bleeding 04/20/2021: Supportive care Monitor bleeding from incision site 04/21/2021: Monitor bleeding from incision site Aggressive therapy 04/22/21: Monitor closely Labs in am 04/23/21: Supportive care Monitor closely 04/24/21: Supportive care Monitor closely 04/25/21: Continue to hold blood thinners (1) Above knee amputation of left lower extremity CHRISTOPHE HERNANDEZ DO Apr 25, 2021 10:10
--- NOTE | 2021-04-25 12:00 | Physical Therapy Daily Note ---
PT Daily Note-Current Subjective Pt. agrees to Rx. States he is pleased with his progress but now he has to find a place to live, the biggest challenge. Pt. expresses he wants this MOULDER OPERATOR to "stay back and let me move, I feel like you might get in my way" Pain Numeric Pain Scale: 5-Moderate Pain Location: Left Location Body Site: Thigh (residual limb) Pain Description: Pressure Appearance confident, some min break through bleeding noted left lateral residual limb Mental Status Patient Orientation: Normal For Age Transfers SCALE: Activities may be completed with or without assistive devices. 3-Wpiobaxoyb-qgzuowf completes the activity by him/herself with no assistance from a helper. 5-Set-up or Clean-up Assistance-helper sets up or cleans up; patient completes activity. [place] assists only prior to or following the activity. 4-Supervision or Touching Assistance-helper provides verbal cues and/or touching/steadying and/or contact guard assistance as patient completes activity. Assistance may be provided throughout the activity or intermittently. 3-Partial/Moderate Assistance-helper does LESS THAN HALF the effort. [place] lifts, holds or supports trunk or limbs, but provides less than half the effort. 2-Substantial/Maximal Assistance-helper does MORE THAN HALF the effort. [place] lifts or holds trunk or limbs and provides more than half the effort. 4-Uhovaobew-tlcsgi does ALL the effort. Patient does none of the effort to complete the activity. Or, the assistance of 2 or more helpers is required for the patient to complete the activity. If activity was not attempted, code reason: 7-Patient Refused. 9-Not Applicable-not attempted and the patient did not perform the activity before the current illness, exacerbation or injury. 10-Not Attempted due to Environmental Limitations-(lack of equipment, weather restraints, etc.). 88-Not Attempted due to Medical Conditions or Safety Concerns. Roll Left & Right (QC): 6 Sit to Lying (QC): 6 Lying to Sitting/Side of Bed(Q: 6 Sit to Stand (QC): 6 Chair/Bwz-rm-Shkpj Xfer(QC): 6 Toilet Transfer (QC): 6 Car Transfer (QC): 6 Weight Bearing Full Weight Bearing Gait Training Does the Patient Walk?: Yes Walk 10 feet (QC): 5 Walk 50 ft with 2 Turns(QC): 5 Walk 150 ft (QC): 5 Walking 10ft/uneven surface-QC: 4 Gait Persons Needed: 1 Gait Assistive Device: FWW no LOB, w/c to follow while in uneven surface Wheelchair Training Does the Pt Use a Wheelchair?: Yes Wheel 50 ft with 2 turns (QC): 6 Wheel 150 ft (QC): 6 Type of Wheelchair: Manual Stair Training #of Steps: 0 1 Step (curb) (QC): 5 Balance Picking up an Object (QC): 6 (uses ore smelter) Exercises Supine Ex: Bridging, Ankle pumps, Quad Set, Rolling, Glut sets, Heel Slides, Scooting, Straight leg raise, Hip abd/add Supine Reps: 20 sidelying hip abd and hip ext on left resid limb, prone hip ext bilat and hams curls right all x20 Treatments TRFs, gait , w/c mob, amputee ther ex program. Assessment Current Status: Good Progress marked progress, breakthrough bleeding and pain in left residual limb cont an issue PT Short Term Goals Short Term Goals Time Frame: Apr 19, 2021 Roll Left & Right: 6 Sit to lyin Lying to sitting on side of be: 6 Sit to stand: 4 Chair/xwd-mp-ujrsr transfer: 4 (SBA) Walk 10 feet: 4 Walk 50 feet with two turns: 4 PT Retirement Goals Correction Officer Supervisor Goals PT Retirement Goals Time Frame: May 03, 2021 Roll Left & Right (QC): 6 Sit to Lying (QC): 6 Lying-Sitting on Side/Bed(QC): 6 Sit to Stand (QC): 5 Chair/Ylu-lv-Yntgd Xfer(QC): 5 Toilet Transfer (QC): 5 Car Transfer (QC): 5 Does the Patient Walk: Yes Walk 10 feet (QC): 5 Walk 50ft with 2 Turns (QC): 5 Walk 150 ft (QC): 88 Walking 10ft on Uneven Surface: 4 1 Step (curb) (QC): 4 4 Steps (QC): 4 12 Steps (QC): 88 Picking up an Object (QC): 5 Wheel 50 feet with 2 turns (QC: 6 Wheel 150 feet: 6 PT Plan Treatment/Plan Treatment Plan: Continue Plan of Care Treatment Plan: Bed Mobility, Education, Functional Activity Deniz, Functional Strength, Group Therapy, Gait, Safety, Therapeutic Exercise, Transfers Treatment Duration: May 03, 2021 Frequency: At least 5 of 7 days/Wk (IRF) Estimated Hrs Per Day: 1.5 hours per day Patient and/or Family Agrees t: Yes Safety Risks/Education Patient Education: Gait Training, Transfer Techniques, Steps (curb), Correct Positioning, W/C Management, Disease Process, Safety Issues Teaching Recipient: Patient Teaching Methods: Demonstration, Discussion Response to Teaching: Verbalize Understanding, Return Demonstration Time/GCodes Time In: 1100 Time Out: 1200 Total Billed Treatment Time: 60 Total Billed Treatment 1,GT15m,FA25m,EX20m ABE KHAN MOULDER OPERATOR Apr 25, 2021 12:00
[2021-04-25] MEDS: RT--FLUTICASONE/SALMETEROL 113-14 (AIRDUO RespiCLICK) IH SCH ×2 (12:04→20:59)
--- NOTE | 2021-04-25 13:14 | Physical Therapy Daily Note ---
PT Daily Note-Current Subjective Pt. up in recliner , agrees to Rx. Pain Location: No Pain Reported Mental Status Patient Orientation: Normal For Age Transfers SCALE: Activities may be completed with or without assistive devices. 2-Kmrczmxzqm-oywvvlp completes the activity by him/herself with no assistance from a helper. 5-Set-up or Clean-up Assistance-helper sets up or cleans up; patient completes activity. [place] assists only prior to or following the activity. 4-Supervision or Touching Assistance-helper provides verbal cues and/or touching/steadying and/or contact guard assistance as patient completes a ctivity. Assistance may be provided throughout the activity or intermittently. 3-Partial/Moderate Assistance-helper does LESS THAN HALF the effort. [place] lifts, holds or supports trunk or limbs, but provides less than half the effort. 2-Substantial/Maximal Assistance-helper does MORE THAN HALF the effort. [place] lifts or holds trunk or limbs and provides more than half the effort. 5-Wawglxfwi-xfixmm does ALL the effort. Patient does none of the effort to complete the activity. Or, the assistance of 2 or more helpers is required for the patient to complete the activity. If activity was not attempted, code reason: 7-Patient Refused. 9-Not Applicable-not attempted and the patient did not perform the activity before the current illness, exacerbation or injury. 10-Not Attempted due to Environmental Limitations-(lack of equipment, weather restraints, etc.). 88-Not Attempted due to Medical Conditions or Safety Concerns. Weight Bearing Full Weight Bearing Wheelchair Training Does the Pt Use a Wheelchair?: Yes Wheel 50 ft with 2 turns (QC): 6 Wheel 150 ft (QC): 6 Type of Wheelchair: Manual w/c mob 1200ft, up down 40ft ramp indep, managed elevator on off and buttons indep, tuned in very tight spaces without incident, over various surfaces ie carpet, tile and over low threshholds indep, demonstrates good safe w/c management Assessment Current Status: Good Progress PT Short Term Goals Short Term Goals Time Frame: Apr 19, 2021 Roll Left & Right: 6 Sit to lyin Lying to sitting on side of be: 6 Sit to stand: 4 Chair/emy-on-mmqkb transfer: 4 (SBA) Walk 10 feet: 4 Walk 50 feet with two turns: 4 PT Insole Tack Puller Hand Goals Shelter Goals PT Insole Tack Puller Hand Goals Time Frame: May 03, 2021 Roll Left & Right (QC): 6 Sit to Lying (QC): 6 Lying-Sitting on Side/Bed(QC): 6 Sit to Stand (QC): 5 Chair/Pky-us-Psmkz Xfer(QC): 5 Toilet Transfer (QC): 5 Car Transfer (QC): 5 Does the Patient Walk: Yes Walk 10 feet (QC): 5 Walk 50ft with 2 Turns (QC): 5 Walk 150 ft (QC): 88 Walking 10ft on Uneven Surface: 4 1 Step (curb) (QC): 4 4 Steps (QC): 4 12 Steps (QC): 88 Picking up an Object (QC): 5 Wheel 50 feet with 2 turns (QC: 6 Wheel 150 feet: 6 PT Plan Treatment/Plan Treatment Plan: Continue Plan of Care Treatment Plan: Bed Mobility, Education, Functional Activity Deniz, Functional Strength, Group Therapy, Gait, Safety, Therapeutic Exercise, Transfers Treatment Duration: May 03, 2021 Frequency: At least 5 of 7 days/Wk (IRF) Estimated Hrs Per Day: 1.5 hours per day Patient and/or Family Agrees t: Yes Safety Risks/Education Patient Education: W/C Management Time/GCodes Time In: 1240 Time Out: 1310 Total Billed Treatment Time: 30 Total Billed Treatment 1,WC 30m ABE KHAN BMW SERVICE TECHNICIAN Apr 25, 2021 13:14
[2021-04-25] MEDS: SENNOSIDES 8.6 MG (SENOKOT) TAB PO SCH (19:23)
[2021-04-25 20:26] VITALS: BP 131/74
[2021-04-26] MEDS: oxyCODONE/APAP 7.5-325 MG (PERCOCET 7.5) TABLET PO PRN ×5 (01:17→21:55)
[2021-04-26] MEDS: FUROSEMIDE 20 MG (LASIX) TAB PO SCH ×2 (06:05→17:32)
[2021-04-26] MEDS: CATHETER FLUSH 10 ML SYR IV SCH ×3 (06:05→20:10)
--- NOTE | 2021-04-26 06:50 | PM&R Progress Note ---
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 Holding anticoagulation Plavix and Aspirin 04/24/21: Pt is doing a lot better Ready for discharge A bad limb per PT Transfers okay Percocet taken BID for pain No bleeding per stump BM yesterday 04/23/21: Pt doing really well Steri-strips are still intact where the bleeding area was from the amputation site No bleeding currently Iron infusions have completed 04/22/21: Patient feels well No bleeding Off blood thinners Dressing changes reveal no bleeding 04/21/2021: Patient doing really well Incision bleeding All blood thinners have been held for 4 days No pain reported 04/20/2021: Patient doing pretty well Incision bleeding again Up ad yana. per PT Checked meds and labs 04/19/2021: Pt sleeping right now Loose stools we are holding laxatives Holding Eliquis, Plavix and Aspirin due to significant bleeding from the incision site Checked meds and labs 04/18/2021: Pt is doing about the same Bleeding from the wound so Eliquis and Aspirin are held Midline is helping with the iron infusions Diarrhea is noted, holding the laxative WBC is 15.6 Hgb 9.2 04/17/2021: Pt doing a lot better Bowels moved yesterday Holding Lisinopril and Metoprolol due to hypotension Mild dizziness noted Small nose bleed last night maintained on saline nasal spray Will give amputation society information to him 04/16/2021: Pt doing well Hgb 7.8 Midline will be placed for iron infusions Incision looks good Potassium 3.1 supplementing 20mEq TID 04/15/2021: Patient doing pretty well Lightheadedness noted Iron infusions given for acute blood loss anemia Checking labs tomorrow may need transfusion Stopping Accu-Cheks since they are all normal 04/14/2021: Patient doing well Denies any new issues Pain is well controlled Bowels moved today Iron infusions maintained Midline will be placed 04/13/2021: Patient settling in White count elevated just as it was at [place] No fever Wound care managing dressing Subtle crackle left lower lobe Smoking cessation Encouraged to use incentive spirometer Iron low will start Venofer Review of Systems General: Fatigue Objective Exam Vital Signs Vital Signs Date Time Temp Pulse Resp B/P (MAP) Pulse Ox O2 Delivery O2 Flow Rate FiO2 04/26/21 20:02 36.5 88 16 109/69 (82) 99 Room Air Capillary Refill : General Appearance: No Apparent Distress, WD/WN, Chronically ill HEENT: PERRL/EOMI Neck: Full Range of Motion, Non Tender, Supple Respiratory: Chest Non Tender, Lungs Clear, Normal Breath Sounds, No Accessory Muscle Use, No Respiratory Distress Cardiovascular: Regular Rate, Rhythm, No Edema, No Gallop, No JVD, No Murmur, Normal Peripheral Pulses Gastrointestinal: Normal Bowel Sounds, No Organomegaly, No Pulsatile Mass, Non Tender, Soft Back: Normal Inspection, No CVA Tenderness, No Vertebral Tenderness Extremity: Normal Capillary Refill, Non Tender, No Calf Tenderness, No Pedal Edema, Other Neurologic/Psychiatric: Alert, Oriented x3, No Motor/Sensory Deficits, Normal Mood/Affect, paradi tender II-XII Norm as Tested, Abnormal Gait Skin: Normal Color, Warm/Dry Lymphatic: No Adenopathy Results/Procedures Lab Patient resulted labs reviewed. FIM Transfers Therapy Code Descriptions/Definitions Functional [place] Measure: 0=Not Assessed/NA 4=Minimal Assistance 1=Total Assistance 5=Supervision or Setup 2=Maximal Assistance 6=Modified [place] 3=Moderate Assistance 7=Complete IndependenceSCALE: Activities may be completed with or without assistive devices. 2-Zrncadtneo-wtlgvow completes the activity by him/herself with no assistance from a helper. 5-Set-up or Clean-up Assistance-helper sets up or cleans up; patient completes activity. [place] assists only prior to or following the activity. 4-Supervision or Touching Assistance-helper provides verbal cues and/or touching/steadying and/or contact guard assistance as patient completes activity. Assistance may be provided throughout the activity or intermittently. 3-Partial/Moderate Assistance-helper does LESS THAN HALF the effort. [place] lifts, holds or supports trunk or limbs, but provides less than half the effort. 2-Substantial/Maximal Assistance-helper does MORE THAN HALF the effort. [place] lifts or holds trunk or limbs and provides more than half the effort. 6-Mdasqxtmy-tctywv does ALL the effort. Patient does none of the effort to complete the activity. Or, the assistance of 2 or more helpers is required for the patient to complete the activity. If activity was not attempted, code reason: 7-Patient Refused. 9-Not Applicable-not attempted and the patient did not perform the activity before the current illness, exacerbation or injury. 10-Not Attempted due to Environmental Limitations-(lack of equipment, weather restraints, etc.). 88-Not Attempted due to Medical Conditions or Safety Concerns. Roll Left to Right (QC): 6 Sit to Lying (QC): 6 Sit to Stand (QC): 6 Chair/Ywf-pg-Psqse Xfer(QC): 6 Car Transfer (QC): 6 Gait Training Does the Patient Walk?: Yes Distance: 40x4, 50' Walk 10 feet (QC): 5 Walk 50 ft with 2 Turns(QC): 5 Walk 150 ft (QC): 5 Walking 10ft/uneven surface-QC: 4 Gait Persons Needed: 1 Gait Assistive Device: FWW Wheelchair Training Does the Pt Use a Wheelchair?: Yes Distance: 150' Wheel 50 ft with 2 turns (QC): 6 Wheel 150 ft (QC): 6 Type of Wheelchair: Manual Stair Training #of Steps: 0 1 Step (curb) (QC): 5 4 Steps (QC): 88 12 Steps (QC): 88 Balance Picking up an Object (QC): 6 (uses ward assistant) ADL-Treatment Eating (QC): 6 Oral Hygiene (QC): 6 Bathing Location: L Arm, R Arm, L Lower Leg (including foot), R Lower Leg ( including foot) (AKA), Chest, Abdomen, Perineal Area Shower/Bathe Self (QC): 6 Upper Body Dressing (QC): 6 Lower Body Dressing (QC): 6 On/Off Footwear (QC): 6 Toileting Hygiene (QC): 6 Toilet Transfer (QC): 6 Assessment/Plan Assessment and Plan Assess & Plan/Chief Complaint Assessment: 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 Previous smoker Right lower extremity wounds Leukocytosis due to stress from amputation Diabetes Hypertension Acute blood loss anemia with iron deficiency Left lower lobe crackle on 04/13/2021 resolved Bleeding from incision site held anticoagulation and held Plavix and aspirin 04/19/2021 Plan: Supportive care Rehab protocol Pain meds 04/13/2021: Incentive spirometer Iron infusion 04/14/21: Iron infusions B12 supplement 04/15/2021: Check labs in the morning Maintain iron infusion 04/16/2021: Supportive care Iron infusions Midline placement 04/17/2021: Iron infusions Amputation site information for support 04/18/2021: Hold anticoagulants due to bleeding Supportive care 04/19/2021: Blood thinners due to incision bleeding 04/20/2021: Supportive care Monitor bleeding from incision site 04/21/2021: Monitor bleeding from incision site Aggressive therapy 04/22/21: Monitor closely Labs in am 04/23/21: Supportive care Monitor closely 04/24/21: Supportive care Monitor closely 04/25/21: Continue to hold blood thinners 04/26/21: DC Friday (1) Above knee amputation of left lower extremity CHRISTOPHE HERNANDEZ DO Apr 26, 2021 06:50
[2021-04-26] MEDS: RT--FLUTICASONE/SALMETEROL 113-14 (AIRDUO RespiCLICK) IH SCH ×2 (06:55→22:57)
[2021-04-26 07:28] VITALS: BP 125/75
[2021-04-26] MEDS: PANTOPRAZOLE 40 MG (PROTONIX) TAB PO SCH (08:12)
[2021-04-26] MEDS: KCL 10 MEQ TAB (MICRO K) PO SCH ×3 (08:12→17:33)
[2021-04-26] MEDS: metFORMIN 500 MG (GLUCOPHAGE) TAB PO SCH ×2 (08:12→20:08)
[2021-04-26] MEDS: MULTIVIT W/MINERALS TAB (THERAGRAN M) PO SCH (08:12)
[2021-04-26] MEDS: EMPAGLIFLOZIN 10 MG TABLET (JARDIANCE) PO SCH (08:12)
[2021-04-26] MEDS: SENNA W/DOCUSATE (SENOKOT S) TABLET PO SCH ×2 (08:13→19:07)
[2021-04-26] MEDS: polyethylene glycoL POWDER 17 GM (MIRALAX) PACK PO SCH ×2 (08:13→19:06)
[2021-04-26] MEDS: DOCUSATE SODIUM 100 MG (COLACE) CAP PO SCH ×2 (08:13→19:06)
[2021-04-26] MEDS: DAKIN'S 1/4 STRENGTH (0.125%) 237 ML BTL TOP SCH (08:13)
--- NOTE | 2021-04-26 08:44 | Occupational Ther Daily Note ---
OT Current Status-Daily Note Subjective Pt alert, lying in bed. Pt agrees to therapy. No c/o pain. Mental Status/Objective Patient Orientation: Person, Place, Time, Situation Attachments: IV (PICC) ADL-Treatment Pt declines shower today. Independent with dressing, toileting and oral care at w/c level. Therapy Code Descriptions/Definitions Functional [place] Measure: 0=Not Assessed/NA 4=Minimal Assistance 1=Total Assistance 5=Supervision or Setup 2=Maximal Assistance 6=Modified [place] 3=Moderate Assistance 7=Complete IndependenceSCALE: Activities may be completed with or without assistive devices. 0-Wsdpjklbft-bzgpzua completes the activity by him/herself with no assistance from a helper. 5-Set-up or Clean-up Assistance-helper sets up or cleans up; patient completes activity. [place] assists only prior to or following the activity. 4-Supervision or Touching Assistance-helper provides verbal cues and/or touchin g/steadying and/or contact guard assistance as patient completes activity. Assistance may be provided throughout the activity or intermittently. 3-Partial/Moderate Assistance-helper does LESS THAN HALF the effort. [place] lifts, holds or supports trunk or limbs, but provides less than half the effort. 2-Substantial/Maximal Assistance-helper does MORE THAN HALF the effort. [place] lifts or holds trunk or limbs and provides more than half the effort. 2-Pwcgiitsr-txbmxn does ALL the effort. Patient does none of the effort to complete the activity. Or, the assistance of 2 or more helpers is required for the patient to complete the activity. If activity was not attempted, code reason: 7-Patient Refused. 9-Not Applicable-not attempted and the patient did not perform the activity before the current illness, exacerbation or injury. 10-Not Attempted due to Environmental Limitations-(lack of equipment, weather restraints, etc.). 88-Not Attempted due to Medical Conditions or Safety Concerns. Oral Hygiene (QC): 6 Upper Body Dressing (QC): 6 Lower Body Dressing (QC): 6 On/Off Footwear: 6 Toileting Hygiene (QC): 6 Toilet Transfer (QC): 6 Pt stated that he is only able to pick AD up at [facility] at 1pm tomorrow. Other Treatment Discussed keeping L hip more straight instead of flexed to decrease tightness. Pt verbalized understanding. Pt propelled w/c to therapy gym to complete B arm pulleys with 2# wrist wts applied while completing pulleys for 5 min without breaks. Pt then completed w/c mobility and picking items off of floor to work on dynamic sitting balance and B UE strengthening. Pt then completed resistive clothespins 2x's with each hand and firm resistance theraputty to work on gross grasp. After session, pt up ad yana in room at w/c level. Call light/phone in reach. All needs met in room. OT Short Term Goals Short Term Goals Time Frame: Apr 25, 2021 Toileting hygiene: 4 Shower/bathe self: 5 Upper body dressin Lower body dressin OT Brick [place]imney Supervisor Goals Correction Goals Time Frame: May 04, 2021 Eating (QC): 6 (met) Oral Hygiene (QC): 6 (met) Toileting Hygiene (QC): 6 (met) Shower/Bathe Self (QC): 6 (met) Upper Body Dressing (QC): 6 (met) Lower Body Dressing (QC): 6 (met) On/Off Footwear (QC): 6 (met) Additional Goals: 1-Demonstrate ADL Tasks, 2-Verbalize Understanding, 3- ImproveStrength/Deniz 1=Demonstrate adherence to instructed precautions during ADL tasks. 2=Patient will verbalize/demonstrate understanding of assistive devices/modifications for ADL. 3=Patient will improve strength/tolerance for activity to enable patient to perform ADL's. OT Education/Plan Problem List/Assessment Assessment: Decreased UE Strength, Impaired Self-Care Skills Discharge Recommendations Plan/Recommendations: Continue POC Treatment Plan/Plan of Care Patient would benefit from OT for education, treatment and training to promote independence in ADL's, mobility, safety and/or upper extremity function for ADL's. Plan of Care: ADL Retraining, Functional Mobility, Group Exercise/Act as Ind, UE Funct Exercise/Act Treatment Duration: May 04, 2021 Frequency: At least 5 of 7 days/Wk (IRF) Estimated Hrs Per Day: 1.5 hours per day Agreement: Yes Rehab Potential: Fair Time/GCodes Start Time: 08:30 Stop Time: 10:00 Total Time Billed (hr/min): 90 Billed Treatment Time 1 visit-ADL 2 (30 min) EX 2 (30 min) FA 2 (30 min) FLORENCE CHIRINOS Apr 26, 2021 08:44
--- NOTE | 2021-04-26 11:03 | Physical Therapy Daily Note ---
PT Daily Note-Current Subjective Pt sitting up in bed upon arrival. Pt agrees to PT. Pain Location: No Pain Reported Mental Status Patient Orientation: Person, Place, Time, Situation Attachments: Other-See Comments (FERMIN wrap on L stump) Transfers SCALE: Activities may be completed with or without assistive devices. 4-Eufganqbmb-oejtfpm completes the activity by him/herself with no assistance from a helper. 5-Set-up or Clean-up Assistance-helper sets up or cleans up; patient completes activity. [place] assists only prior to or following the activity. 4-Supervision or Touching Assistance-helper provides verbal cues and/or touching/steadying and/or contact guard assistance as patient completes activity. Assistance may be provided throughout the activity or intermittently. 3-Partial/Moderate Assistance-helper does LESS THAN HALF the effort. [place] lifts, holds or supports trunk or limbs, but provides less than half the effort. 2-Substantial/Maximal Assistance-helper does MORE THAN HALF the effort. [place] lifts or holds trunk or limbs and provides more than half the effort. 7-Nnpfwjunz-fhzrgd does ALL the effort. Patient does none of the effort to complete the activity. Or, the assistance of 2 or more helpers is required for the patient to complete the activity. If activity was not attempted, code reason: 7-Patient Refused. 9-Not Applicable-not attempted and the patient did not perform the activity before the current illness, exacerbation or injury. 10-Not Attempted due to Environmental Limitations-(lack of equipment, weather restraints, etc.). 88-Not Attempted due to Medical Conditions or Safety Concerns. Lying to Sitting/Side of Bed(Q: 6 Sit to Stand (QC): 6 Chair/Kyi-fu-Ipsgn Xfer(QC): 6 Weight Bearing Full Weight Bearing Stair Training Stair Training: Handrails/: 2 handrails #of Steps: 8 1 Step (curb) (QC): 4 4 Steps (QC): 4 Stairs: Pattern: Hops Balance Picking up an Object (QC): 88 Exercises Supine Ex: Ankle pumps, Glut sets, Heel Slides, Short Arc Quads, Straight leg raise, Hip abd/add Supine Reps: 15 Seated Therapy Exercises: Ankle pumps, Long arc quads, Hip flexion Seated Reps: 15 Treatments Pt wanted to focus on stairs as pt would be going to Mother's house after d/c. Pt confirms 2 handrails but not sure if he can reach both. PT gives pt educ. on sequencing and hand/foot placement. First attempt requires more instruction but second attempt goes more smoothly. Pt is given written HEP for Supine & Seated Ex. Pt propels WCH in hallway before returning to room. All needs met, call light in hand. Assessment Current Status: Good Progress Pt was a little nervous about stairs, calling them his only obstacle to home. Pt took more instruction on first attempt but was much improved the second attempt. PT Short Term Goals Short Term Goals Time Frame: Apr 19, 2021 Roll Left & Right: 6 Sit to lyin Lying to sitting on side of be: 6 Sit to stand: 4 Chair/dnb-ev-ijbqz transfer: 4 (SBA) Walk 10 feet: 4 Walk 50 feet with two turns: 4 PT Change Control Specialist Goals Jail Goals PT Change Control Specialist Goals Time Frame: May 03, 2021 Roll Left & Right (QC): 6 Sit to Lying (QC): 6 Lying-Sitting on Side/Bed(QC): 6 Sit to Stand (QC): 5 Chair/Evu-pp-Xadtt Xfer(QC): 5 Toilet Transfer (QC): 5 Car Transfer (QC): 5 Does the Patient Walk: Yes Walk 10 feet (QC): 5 Walk 50ft with 2 Turns (QC): 5 Walk 150 ft (QC): 88 Walking 10ft on Uneven Surface: 4 1 Step (curb) (QC): 4 4 Steps (QC): 4 12 Steps (QC): 88 Picking up an Object (QC): 5 Wheel 50 feet with 2 turns (QC: 6 Wheel 150 feet: 6 PT Plan Treatment/Plan Treatment Plan: Continue Plan of Care Treatment Plan: Bed Mobility, Education, Functional Activity Deniz, Functional Strength, Group Therapy, Gait, Safety, Therapeutic Exercise, Transfers Treatment Duration: May 03, 2021 Frequency: At least 5 of 7 days/Wk (IRF) Estimated Hrs Per Day: 1.5 hours per day Patient and/or Family Agrees t: Yes Safety Risks/Education Patient Education: Steps, Issued Written HEP Teaching Recipient: Patient Teaching Methods: Discussion Response to Teaching: Verbalize Understanding Time/GCodes Time In: 1000 Time Out: 1100 Total Billed Treatment Time: 60 Total Billed Treatment 1, FA x2 (30m), EX (20m) & [facility] (10m) KATE BREEN ASSOCIATE PROFESSOR OF ENGLISH Apr 26, 2021 11:03
--- NOTE | 2021-04-26 14:58 | Physical Therapy Daily Note ---
PT Daily Note-Current Subjective Pt laying Supine in bed upon arrival. Pt agrees to PT. Pain Location: No Pain Reported Mental Status Patient Orientation: Person, Place, Time, Situation Attachments: Other-See Comments (FERMIN wrap for L stump) Transfers SCALE: Activities may be completed with or without assistive devices. 5-Xkoojvtxvm-fahfyxf completes the activity by him/herself with no assistance from a helper. 5-Set-up or Clean-up Assistance-helper sets up or cleans up; patient completes activity. [place] assists only prior to or following the activity. 4-Supervision or Touching Assistance-helper provides verbal cues and/or touching/steadying and/or contact guard assistance as patient completes activity. Assistance may be provided throughout the activity or intermittently. 3-Partial/Moderate Assistance-helper does LESS THAN HALF the effort. [place] lifts, holds or supports trunk or limbs, but provides less than half the effort. 2-Substantial/Maximal Assistance-helper does MORE THAN HALF the effort. [place] lifts or holds trunk or limbs and provides more than half the effort. 8-Ydkrqasne-pypodt does ALL the effort. Patient does none of the effort to complete the activity. Or, the assistance of 2 or more helpers is required for the patient to complete the activity. If activity was not attempted, code reason: 7-Patient Refused. 9-Not Applicable-not attempted and the patient did not perform the activity before the current illness, exacerbation or injury. 10-Not Attempted due to Environmental Limitations-(lack of equipment, weather restraints, etc.). 88-Not Attempted due to Medical Conditions or Safety Concerns. Lying to Sitting/Side of Bed(Q: 6 Sit to Stand (QC): 6 Weight Bearing Full Weight Bearing Wheelchair Training Does the Pt Use a Wheelchair?: Yes Type of Wheelchair: Manual Treatments Pt reports feeling good about d/c tomorrow (04/27) and asks about discharge progress and what it entails. INSTRUCTOR CREELER reviews this with pt. Pt TF to [facility] then to [facility] and uses BR. All needs met, call light next to pt. Assessment Current Status: Good Progress Pt has confidence in what he has accomplished and learned and feels ready to d/c. PT Short Term Goals Short Term Goals Time Frame: Apr 19, 2021 Roll Left & Right: 6 Sit to lyin Lying to sitting on side of be: 6 Sit to stand: 4 Chair/oth-rb-tivip transfer: 4 (SBA) Walk 10 feet: 4 Walk 50 feet with two turns: 4 PT Group Home Goals Group Home Goals PT Group Home Goals Time Frame: May 03, 2021 Roll Left & Right (QC): 6 Sit to Lying (QC): 6 Lying-Sitting on Side/Bed(QC): 6 Sit to Stand (QC): 5 Chair/Uto-wm-Awlrs Xfer(QC): 5 Toilet Transfer (QC): 5 Car Transfer (QC): 5 Does the Patient Walk: Yes Walk 10 feet (QC): 5 Walk 50ft with 2 Turns (QC): 5 Walk 150 ft (QC): 88 Walking 10ft on Uneven Surface: 4 1 Step (curb) (QC): 4 4 Steps (QC): 4 12 Steps (QC): 88 Picking up an Object (QC): 5 Wheel 50 feet with 2 turns (QC: 6 Wheel 150 feet: 6 PT Plan Treatment/Plan Treatment Plan: Continue Plan of Care Treatment Plan: Bed Mobility, Education, Functional Activity Deniz, Functional Strength, Group Therapy, Gait, Safety, Therapeutic Exercise, Transfers Treatment Duration: May 03, 2021 Frequency: At least 5 of 7 days/Wk (IRF) Estimated Hrs Per Day: 1.5 hours per day Patient and/or Family Agrees t: Yes Time/GCodes Time In: 1300 Time Out: 1330 Total Billed Treatment Time: 30 Total Billed Treatment 1, FA x2 (30m) KATE BREEN INSTRUCTOR CREELER Apr 26, 2021 14:58
[2021-04-26] MEDS: SENNOSIDES 8.6 MG (SENOKOT) TAB PO SCH (19:07)
[2021-04-26 20:02] VITALS: BP 109/69
[2021-04-27] MEDS: CATHETER FLUSH 10 ML SYR IV SCH (05:29)
[2021-04-27] MEDS: FUROSEMIDE 20 MG (LASIX) TAB PO SCH (06:03)
[2021-04-27] MEDS ORDERED: ATOR20TA66 PO (07:16)
[2021-04-27] MEDS ORDERED: OXYC1TAB16 PO (07:16)
[2021-04-27] MEDS ORDERED: LINA5TAB PO (07:16)
[2021-04-27] MEDS ORDERED: CLOP75TA28 PO (07:16)
[2021-04-27] MEDS ORDERED: APIX5TAB PO (07:16)
[2021-04-27] MEDS ORDERED: ASPI-1238 PO (07:16)
[2021-04-27] MEDS ORDERED: METO-333 PO (07:16)
[2021-04-27] MEDS ORDERED: FLUT1AER4 IH (07:16)
[2021-04-27] MEDS ORDERED: SENN1TAB76 PO (07:16)
[2021-04-27] MEDS ORDERED: EMPA10TA PO (07:16)
[2021-04-27] MEDS ORDERED: PANT40TA52 PO (07:16)
[2021-04-27] MEDS ORDERED: MULT-1137 PO (07:16)
--- NOTE | 2021-04-27 07:18 | D/C HH Face to Face Order ---
D/C HH Face to Face Orders Reconcile Patient Problems Problems Reviewed?: Yes Instructions for Patient HH Patient Instructions/FollowUp: PCP 1 week Physician to follow Patient: [facility] Discharge Diet for Home: ADA Diet Patient Problems: Left AKA Patient Data-Allergies,Ht & Wt Patient Allergies: Coded Allergies: No Known Allergies (Verified Allergy, Unknown, 04/16/21) Home Health Need/Face to Face Date of Face to Face: Apr 27, 2021 Clinical Findings: Generalized weakness and fatigue, Immune-compromised, Instability, Muscle weakness, Unsteady gait, Non-healing wound I have seen Pt ghuk-ls-phgh: Yes Discharged To: Home Diagnosis/Conditions: Left ABHINAV Patient is Homebound due to: CognItive deficits, Denys fall risk due to instabilty, Muscle weakness Homebound Status Due to the above stated illness, injury or surgical procedure (medical condition or diagnosis) and associated clinical findings, the patient is homebound because of his/her inability to leave home except with aid of a supportive device and/or person AND leaving the home requires a considerable and taxing effort or is medically contraindicated. Pt req the following assistanc: Walker, Wheelchair Home Health Nursing Orders Home Health Services Order: Nursing Services, Travel Trailer Components Assembler-Evaluate & Treat, Physical Therapy-Evaluate & Treat, Wound Care-Eval/Treat Home Health Infusion Therapy Line Start Date: Apr 16, 2021 Certify Stmt I certify that this patient is under my care and that I, a nurse practitioner or a physician; a speech correction assistant working with me, had a face to face encounter that - meets the physician face to face encounter requirements with this patient as dated. CHRISTOPHE HERNANDEZ DO Apr 27, 2021 07:17
--- NOTE | 2021-04-27 07:18 | Discharge Summary ---
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 Previous smoker Right lower extremity wounds Leukocytosis due to stress from amputation Diabetes Hypertension Acute blood loss anemia with iron deficiency Left lower lobe crackle on 04/13/2021 resolved Bleeding from incision site held anticoagulation and held Plavix and aspirin 04/19/2021 Plan: Supportive care Rehab protocol Pain meds 04/13/2021: Incentive spirometer Iron infusion 04/14/21: Iron infusions B12 supplement 04/15/2021: Check labs in the morning Maintain iron infusion 04/16/2021: Supportive care Iron infusions Midline placement 04/17/2021: Iron infusions Amputation site information for support 04/18/2021: Hold anticoagulants due to bleeding Supportive care 04/19/2021: Blood thinners due to incision bleeding 04/20/2021: Supportive care Monitor bleeding from incision site 04/21/2021: Monitor bleeding from incision site Aggressive therapy 04/22/21: Monitor closely Labs in am 04/23/21: Supportive care Monitor closely 04/24/21: Supportive care Monitor closely 04/25/21: Continue to hold blood thinners 04/26/21: DC Friday (1) Above knee amputation of left lower extremity Discharge Summary Discharge Physical Examination Allergies: Coded Allergies: No Known Allergies (Verified Allergy, Unknown, 04/16/21) Vitals & I&Os Vital Signs Date Time Temp Pulse Resp B/P (MAP) Pulse Ox O2 Delivery O2 Flow Rate FiO2 04/27/21 14:59 36.8 94 16 137/89 100 Room Air 0.00 General Appearance: Alert, Oriented X3, Cooperative Psych/Mental Status: Mental Status NL Hospital Course Was the Problem List Reviewed?: Yes Pt had a 16 day hospital course in Inpatient Rehab after suffering a 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 He did have a lot of bleeding from the incision site so we did hold Eliquis, Plavix, and Aspirin That was much improved at time of discharge HH was secured He will have a close follow up with PCP I did send Eliquis, Plavix, and Aspirin in but he will hold these until he meets with PCP Labs (last 24 hrs) Laboratory Tests 04/12/21 12:18: Glucometer 94 04/12/21 16:55: Glucometer 95 04/12/21 20:18: Glucometer 136H 04/13/21 05:44: White Blood Count 19.0H, Red Blood Count 2.58L, Hemoglobin 7.9L, Hematocrit 23L, Mean Corpuscular Volume 91, Mean Corpuscular Hemoglobin 31, Mean Corpuscular Hemoglobin Concent 34, Red Cell Distribution Width 12.6, Platelet Count 741H, Mean Platelet Volume 10.0, Immature Granulocyte % (Auto) 5, Neutrophils (%) (Auto) 75, Lymphocytes (%) (Auto) 9L, Monocytes (%) (Auto) 7, Eosinophils (%) (Auto) 4, Basophils (%) (Auto) 1, Neutrophils # (Auto) 14.2H, Lymphocytes # (Auto) 1.7, Monocytes # (Auto) 1.4H, Eosinophils # (Auto) 0.8H, Basophils # (Auto) 0.1, Immature Granulocyte # (Auto) 0.9H, Neutrophils % (Manual) 82, Lymphocytes % (Manual) 10, Monocytes % (Manual) 3, Eosinophils % (Manual) 5, Toxic Granulation 2+, Polychromasia SLIGHT, Hypochromasia SLIGHT, Target Cells SLIGHT, Crenated Cell SLIGHT, Sodium Level 133L, Potassium Level 3.1L, Chloride Level 98, Carbon Dioxide Level 22, Anion Gap 13, Blood Urea Nitrogen 16, Creatinine 1.01, Estimat Glomerular Filtration Rate 76, BUN/Creatinine Ratio 16, Glucose Level 124H, Calcium Level 8.4L, Corrected Calcium 9.2, Magnesium Level 1.6, Iron Level 22L, Total Bilirubin 0.5, Aspartate Amino Transf (AST/SGOT) 45H, Alanine Aminotransferase (ALT/SGPT) 44, Alkaline Phosphatase 59, Total Protein 5.7L, Albumin 3.0L, Vitamin B12 Level 877, Procalcitonin 0.07 04/13/21 10:51: Glucometer 99 04/13/21 15:22: Glucometer 120H 04/13/21 20:21: Glucometer 127H 04/14/21 06:29: Glucometer 126H 04/14/21 11:16: Glucometer 119H 04/14/21 15:57: Glucometer 129H 04/14/21 20:05: Glucometer 135H 04/15/21 05:26: Glucometer 129H 04/15/21 11:33: Glucometer 100 04/16/21 05:20: Glucometer 117H 04/16/21 06:23: White Blood Count 15.9H, Red Blood Count 2.52L, Hemoglobin 7.8L, Hematocrit 24L, Mean Corpuscular Volume 95, Mean Corpuscular Hemoglobin 31, Mean Corpuscular Hemoglobin Concent 33, Red Cell Distribution Width 14.7H, Platelet Count 736H, Mean Platelet Volume 10.0, Immature Granulocyte % (Auto) 3, Neutrophils (%) (Auto) 74, Lymphocytes (%) (Auto) 11L, Monocytes (%) (Auto) 9, Eosinophils (%) (Auto) 3, Basophils (%) (Auto) 1, Neutrophils # (Auto) 11.8H, Lymphocytes # (Auto) 1.7, Monocytes # (Auto) 1.4H, Eosinophils # (Auto) 0.4H, Basophils # (Auto) 0.1, Immature Granulocyte # (Auto) 0.5H, Sodium Level 138, Potassium Level 3.1L, Chloride Level 105, Carbon Dioxide Level 21, Anion Gap 12, Blood Urea Nitrogen 8, Creatinine 1.04, Estimat Glomerular Filtration Rate 73, BUN/Creatinine Ratio 8, Glucose Level 126H, Calcium Level 8.7, Corrected Calcium 9.3, Total Bilirubin 0.4, Aspartate Amino Transf (AST/SGOT) 35H, Alanine Aminotransferase (ALT/SGPT) 49, Alkaline Phosphatase 58, Total Protein 6.1L, Albumin 3.2 04/18/21 06:50: White Blood Count 15.6H, Red Blood Count 2.90L, Hemoglobin 9.2L, Hematocrit 28L, Mean Corpuscular Volume 96, Mean Corpuscular Hemoglobin 32, Mean Corpuscular Hemoglobin Concent 33, Red Cell Distribution Width 16.1H, Platelet Count 721H, Mean Platelet Volume 9.8 04/23/21 06:33: White Blood Count 14.1H, Red Blood Count 3.13L, Hemoglobin 9.9L, Hematocrit 31L, Mean Corpuscular Volume 98, Mean Corpuscular Hemoglobin 32, Mean Corpuscular Hemoglobin Concent 32, Red Cell Distribution Width 16.5H, Platelet Count 591H, M casandra Platelet Volume 9.7, Immature Granulocyte % (Auto) 2, Neutrophils (%) (Auto) 76H, Lymphocytes (%) (Auto) 8L, Monocytes (%) (Auto) 9, Eosinophils (%) (Auto) 4, Basophils (%) (Auto) 1, Neutrophils # (Auto) 10.7H, Lymphocytes # (Auto) 1.2, Monocytes # (Auto) 1.3H, Eosinophils # (Auto) 0.5H, Basophils # (Auto) 0.1, Immature Granulocyte # (Auto) 0.2H, Neutrophils % (Manual) 81, Lymphocytes % (Manual) 8, Monocytes % (Manual) 8, Eosinophils % (Manual) 3, Poikilocytosis SLIGHT, Sodium Level 136, Potassium Level 4.0, Chloride Level 106, Carbon Dioxide Level 19L, Anion Gap 11, Blood Urea Nitrogen 14, Creatinine 0.92, Es timat Glomerular Filtration Rate 84, BUN/Creatinine Ratio 15, Glucose Level 119H , Calcium Level 9.6, Corrected Calcium 9.8, Total Bilirubin 0.4, Aspartate Amino Transf (AST/SGOT) 23, Alanine Aminotransferase (ALT/SGPT) 27, Alkaline Cherri sphatase 72, Total Protein 6.5, Albumin 3.7 Pending Labs Laboratory Tests 04/12/21 12:18: Glucometer 94 04/12/21 16:55: Glucometer 95 04/12/21 20:18: Glucometer 136 04/13/21 05:44: White Blood Count 19.0, Red Blood Count 2.58, Hemoglobin 7.9, Hematocrit 23, Mean Corpuscular Volume 91, Mean Corpuscular Hemoglobin 31, Mean Corpuscular Hemoglobin Concent 34, Red Cell Distribution Width 12.6, Platelet Count 741, Mean Platelet Volume 10.0, Immature Granulocyte % (Auto) 5, Neutrophils (%) (Auto) 75, Lymphocytes (%) (Auto) 9, Monocytes (%) (Auto) 7, Eosinophils (%) (Auto) 4, Basophils (%) (Auto) 1, Neutrophils # (Auto) 14.2, Lymphocytes # (Auto) 1.7, Monocytes # (Auto) 1.4, Eosinophils # (Auto) 0.8, Basophils # (Auto) 0.1, Immature Granulocyte # (Auto) 0.9, Neutrophils % (Manual) 82, Lymphocytes % (Manual) 10, Monocytes % (Manual) 3, Eosinophils % (Manual) 5, Toxic Granulation 2+, Polychromasia SLIGHT, Hypochromasia SLIGHT, Target Cells SLIGHT, Crenated Cell SLIGHT, Sodium Level 133, Potassium Level 3.1, Chloride Level 98, Carbon Dioxide Level 22, Anion Gap 13, Blood Urea Nitrogen 16, Creatinine 1.01, Estimat Glomerular Filtration Rate 76, BUN/Creatinine Ratio 16, Glucose Level 124, Calcium Level 8.4, Corrected Calcium 9.2, Magnesium Level 1.6, Iron Level 22, Total Bilirubin 0.5, Aspartate Amino Transf (AST/SGOT) 45, Alanine Aminotransferase (ALT/SGPT) 44, Alkaline Phosphatase 59, Total Protein 5.7, Albumin 3.0, Vitamin B12 Level 877, Procalcitonin 0.07 04/13/21 10:51: Glucometer 99 04/13/21 15:22: Glucometer 120 04/13/21 20:21: Glucometer 127 04/14/21 06:29: Glucometer 126 04/14/21 11:16: Glucometer 119 04/14/21 15:57: Glucometer 129 04/14/21 20:05: Glucometer 135 04/15/21 05:26: Glucometer 129 04/15/21 11:33: Glucometer 100 04/16/21 05:20: Glucometer 117 04/16/21 06:23: White Blood Count 15.9, Red Blood Count 2.52, Hemoglobin 7.8, Hematocrit 24, Mean Corpuscular Volume 95, Mean Corpuscular Hemoglobin 31, Mean Corpuscular Hemoglobin Concent 33, Red Cell Distribution Width 14.7, Platelet Count 736, Mean Platelet Volume 10.0, Immature Granulocyte % (Auto) 3, Neutrophils (%) (Auto) 74, Lymphocytes (%) (Auto) 11, Monocytes (%) (Auto) 9, Eosinophils (%) (Auto) 3, Basophils (%) (Auto) 1, Neutrophils # (Auto) 11.8, Lymphocytes # (Auto) 1.7, Monocytes # (Auto) 1.4, Eosinophils # (Auto) 0.4, Basophils # (Auto) 0.1, Immature Granulocyte # (Auto) 0.5, Sodium Level 138, Potassium Level 3.1, Chloride Level 105, Carbon Dioxide Level 21, Anion Gap 12, Blood Urea Nitrogen 8, Creatinine 1.04, Estimat Glomerular Filtration Rate 73, BUN/Creatinine Ratio 8, Glucose Level 126, Calcium Level 8.7, Corrected Calcium 9.3, Total Bilirubin 0.4, Aspartate Amino Transf (AST/SGOT) 35, Alanine Aminotransferase (ALT/SGPT) 49, Alkaline Phosphatase 58, Total Protein 6.1, Albumin 3.2 04/18/21 06:50: White Blood Count 15.6, Red Blood Count 2.90, Hemoglobin 9.2, Hematocrit 28, Mean Corpuscular Volume 96, Mean Corpuscular Hemoglobin 32, Mean Corpuscular Hem oglobin Concent 33, Red Cell Distribution Width 16.1, Platelet Count 721, Mean Platelet Volume 9.8 04/23/21 06:33: White Blood Count 14.1, Red Blood Count 3.13, Hemoglobin 9.9, Hematocrit 31, Mean Corpuscular Volume 98, Mean Corpuscular Hemoglobin 32, Mean Corpuscular Hemoglobin Concent 32, Red Cell Distribution Width 16.5, Platelet Count 591, Mean Platelet Volume 9.7, Immature Granulocyte % (Auto) 2, Neutrophils (%) (Auto) 76, Lymphocytes (%) (Auto) 8, Monocytes (%) (Auto) 9, Eosinophils (%) (Auto) 4, Basophils (%) (Auto) 1, Neutrophils # (Auto) 10.7, Lymphocytes # (Auto) 1.2, Monocytes # (Auto) 1.3, Eosinophils # (Auto) 0.5, Basophils # (Auto) 0.1, Immature Granulocyte # (Auto) 0.2, Neutrophils % (Manual) 81, Lymphocytes % (Manual) 8, Monocytes % (Manual) 8, Eosinophils % (Manual) 3, Poikilocytosis SLIGHT, Sodium Level 136, Potassium Level 4.0, Chloride Level 106, Carbon Dioxide Level 19, Anion Gap 11, Blood Urea Nitrogen 14, Creatinine 0.92, Estimat Glomerular Filtration Rate 84, BUN/Creatinine Ratio 15, Glucose Level 119, Calcium Level 9.6, Corrected Calcium 9.8, Total Bilirubin 0.4, Aspartate Amino Transf (AST/SGOT) 23, Alanine Aminotransferase (ALT/SGPT) 27, Alkaline Phosphatase 72, Total Protein 6.5, Albumin 3.7 Discharge Home Medications: Active Scripts Active Tab-A-Teagan Multivit with Iron (Multivitamin/Iron/Folic Acid) 1 Each Tablet 1 Ea PO DAILY Jardiance (Empagliflozin) 10 Mg Tablet 10 Mg PO DAILY Tradjenta (Linagliptin) 5 Mg Tablet 5 Mg PO DAILY Pantoprazole Sodium 40 Mg Tablet.dr 40 Mg PO DAILY Stool Softener-Laxative Tablet (Sennosides/Docusate Sodium) 1 Each Tablet 1 Ea PO BID Fluticasone-Salmeterol 113-14 (Fluticasone/Salmeterol) 1 Each Aer.pow.ba 0 Each IH RTBID Percocet 7.5-325 mg Tablet (Oxycodone HCl/Acetaminophen) 1 Each Tablet 1 Each PO Q4H PRN Aspirin EC (Aspirin) 81 Mg Tablet.dr 81 Mg PO DAILY Hold until see PCP Metoprolol Tartrate 25 Mg Tablet 25 Mg PO DAILY@0800 Atorvastatin Calcium 20 Mg Tablet 20 Mg PO HS Clopidogrel (Clopidogrel Bisulfate) 75 Mg Tablet 75 Mg PO DAILY Hold until see PCP Eliquis (Apixaban) 5 Mg Tablet 5 Mg PO BID Hold until you see PCP Reported Metformin HCl 500 Mg Tablet 500 Mg PO BID Furosemide 20 Mg Tablet 20 Mg PO DAILY Instructions to patient/family Please see electronic discharge instructions given to patient. Diagnosis/Problems Diagnosis/Problems (1) Above knee amputation of left lower extremity CHRISTOPHE HERNANDEZ DO Apr 27, 2021 07:18
[2021-04-27 07:19] VITALS: BP 137/89
[2021-04-27] MEDS: RT--FLUTICASONE/SALMETEROL 113-14 (AIRDUO RespiCLICK) IH SCH (07:45)
[2021-04-27] MEDS: metFORMIN 500 MG (GLUCOPHAGE) TAB PO SCH (08:06)
[2021-04-27] MEDS: EMPAGLIFLOZIN 10 MG TABLET (JARDIANCE) PO SCH (08:07)
[2021-04-27] MEDS: oxyCODONE/APAP 7.5-325 MG (PERCOCET 7.5) TABLET PO PRN ×2 (08:07→12:07)
[2021-04-27] MEDS: DOCUSATE SODIUM 100 MG (COLACE) CAP PO SCH (08:07)
[2021-04-27] MEDS: KCL 10 MEQ TAB (MICRO K) PO SCH ×2 (08:07→12:07)
[2021-04-27] MEDS: PANTOPRAZOLE 40 MG (PROTONIX) TAB PO SCH (08:07)
[2021-04-27] MEDS: MULTIVIT W/MINERALS TAB (THERAGRAN M) PO SCH (08:07)
[2021-04-27] MEDS: SENNA W/DOCUSATE (SENOKOT S) TABLET PO SCH (08:08)
[2021-04-27] MEDS: polyethylene glycoL POWDER 17 GM (MIRALAX) PACK PO SCH (08:08)
--- NOTE | 2021-04-27 09:02 | Therapy Team Discharge Summary ---
Therapy Discharge Summary Discharge Recommendations Date of Discharge Occupational Therapy Pt admitted to [facility] s/p L AKA. At OF, pt was independent with ADLs and functional mobility, on AD/AE. Upon initial evaluation, pt was independent with eating and oral care, required min A with showering, set up upper body dressing, total assist lower body dressing and footwear and min A toileting. OT Tx focused on increasing BUE Strength and activity tolerance, and increasing independence with ADLs and functional mobility. At discharge, pt was independent with all ADLs, meeting all LTGs. OT recommendations include shower chair/bench, hip kit, and grab bars. Pt to discharge from facility, d/c from OT. Decreased UE Strength, Impaired Self-Care Skills PT [facility] Goals Auxiliary Equipment Tender Goals PT [facility] Goals Time Frame: May 03, 2021 Roll Left to Right (QC): 6 Sit to Lying (QC): 6 Lying-Sitting on Side/Bed(QC): 6 Sit to Stand (QC): 5 Chair/Ogs-fn-Lpxda Xfer(QC): 5 Car Transfer (QC): 5 Does the Patient Walk: Yes Walk 10 feet (QC): 5 Walk 10ft-Uneven Surface(QC): 4 Walk 50ft with 2 Turns (QC): 5 Walk 150 ft (QC): 88 Wheel 50 feet with 2 turns (QC: 6 1 Step (curb) (QC): 4 4 Steps (QC): 4 12 Steps (QC): 88 Picking up an Object (QC): 5 OT Auxiliary Equipment Tender Goals Auxiliary Equipment Tender Goals Time Frame: May 04, 2021 Eating (QC): 6 (met) Oral Hygiene (QC): 6 (met) Shower/Bathe Self (QC): 6 (met) Upper Body Dressing (QC): 6 (met) Lower Body Dressing (QC): 6 (met) On/Off Footwear (QC): 6 (met) Toileting Hygiene (QC): 6 (met) Toilet/Commode Transfer (QC): 5 Additional Goals: 1-Demonstrate ADL Tasks, 2-Verbalize Understanding, 3- ImproveStrength/Deniz 1=Demonstrate adherence to instructed precautions during ADL tasks. 2=Patient will verbalize/demonstrate understanding of assistive devices/modifications for ADL. 3=Patient will improve strength/tolerance for activity to enable patient to perform ADL's. JOSH NEVAREZ OT Apr 27, 2021 09:02
[2021-04-27] MEDS: DAKIN'S 1/4 STRENGTH (0.125%) 237 ML BTL TOP SCH (13:09)
--- NOTE | 2021-04-27 14:11 | Therapy Team Discharge Summary ---
Therapy Discharge Summary Discharge Recommendations Date of Discharge Physical Therapy Patient came to rehab s/p left AKA. Upon evaluation patient performed rolling with independence, supine <-> sit SBA, sit <-> stand min assist, transfers CGA, car transfer CGA, ambulated 10' with CGA using a rolling walker, propelled a manual WC 150' with SBA, and picked up an object from the floor with CGA. Patient has been performing bed mobility and transfer training, balance and endurance training, functional strengthening, stair training, gait training, and education. Patient has made good progress and has met all of his detention goals. Now, patient performs bed mobility and transfers with independence, car transfer independent, ambulates 150' with a rolling walker with setup (including 50' with at least 2 turns of 90 degrees but CGA with 10' over an uneven surface), picked up an object from the floor with independence (with service secretary), can propel a manual WC over 150' with independence, and can go up and down 8 steps using 2 handrails with CGA. Patient is being discharged from this facility today and will be discharged from PT at this time. Occupational Therapy Decreased UE Strength, Impaired Self-Care Skills PT Rubber Chemist Goals Rubber Chemist Goals PT Rubber Chemist Goals Time Frame: May 03, 2021 Roll Left to Right (QC): 6 Sit to Lying (QC): 6 Lying-Sitting on Side/Bed(QC): 6 Sit to Stand (QC): 5 Chair/Rsu-vp-Icqsd Xfer(QC): 5 Car Transfer (QC): 5 Does the Patient Walk: Yes Walk 10 feet (QC): 5 Walk 10ft-Uneven Surface(QC): 4 Walk 50ft with 2 Turns (QC): 5 Walk 150 ft (QC): 88 Wheel 50 feet with 2 turns (QC: 6 1 Step (curb) (QC): 4 4 Steps (QC): 4 12 Steps (QC): 88 Picking up an Object (QC): 5 OT Correction Goals Rubber Chemist Goals Time Frame: May 04, 2021 Eating (QC): 6 (met) Oral Hygiene (QC): 6 (met) Shower/Bathe Self (QC): 6 (met) Upper Body Dressing (QC): 6 (met) Lower Body Dressing (QC): 6 (met) On/Off Footwear (QC): 6 (met) Toileting Hygiene (QC): 6 (met) Toilet/Commode Transfer (QC): 5 Additional Goals: 1-Demonstrate ADL Tasks, 2-Verbalize Understanding, 3-Impr oveStrength/Deniz 1=Demonstrate adherence to instructed precautions during ADL tasks. 2=Patient will verbalize/demonstrate understanding of assistive devices/modifications for ADL. 3=Patient will improve strength/tolerance for activity to enable patient to perform ADL's. ROSEMARY CABA PT Apr 27, 2021 14:11
[2021-04-27 14:59] VITALS: BP 137/89
--- NOTE | 2021-04-30 12:16 | Physical Therapy Daily Note ---
PT Daily Note-Current Subjective Pt. agrees to Rx, Pt. c/o pain in left residual limb at 8/10, nurse advised. Pt. agrees to therex in bed Pain Numeric Pain Scale: 8 Location: Left Location Body Site: Foot (phantom) Pain Description: Pressure Mental Status Patient Orientation: Normal For Age Transfers SCALE: Activities may be completed with or without assistive devices. 1-Msscpkbmnq-zemepno completes the activity by him/herself with no assistance from a helper. 5-Set-up or Clean-up Assistance-helper sets up or cleans up; patient completes activity. [place] assists only prior to or following the activity. 4-Supervision or Touching Assistance-helper provides verbal cues and/or touching/steadying and/or contact guard assistance as patient completes activity. Assistance may be provided throughout the activity or intermittently. 3-Partial/Moderate Assistance-helper does LESS THAN HALF the effort. [place] lifts, holds or supports trunk or limbs, but provides less than half the effort. 2-Substantial/Maximal Assistance-helper does MORE THAN HALF the effort. [place] lifts or holds trunk or limbs and provides more than half the effort. 8-Lagoevmcv-rpwjcq does ALL the effort. Patient does none of the effort to complete the activity. Or, the assistance of 2 or more helpers is required for the patient to complete the activity. If activity was not attempted, code reason: 7-Patient Refused. 9-Not Applicable-not attempted and the patient did not perform the activity before the current illness, exacerbation or injury. 10-Not Attempted due to Environmental Limitations-(lack of equipment, weather restraints, etc.). 88-Not Attempted due to Medical Conditions or Safety Concerns. rolling ad pulling self up in bed with rails all SBA Weight Bearing Full Weight Bearing Exercises Supine Ex: Ankle pumps, Quad Set, Rolling, Glut sets, Heel Slides, Scooting, Straight leg raise, Hip abd/add (sup and side) Supine Reps: 20 Treatments exercise with residual limb in sup and side for hip hip and abd, as well as above ex, pt. left in sup with residual limb elevated Assessment Current Status: Good Progress PT Short Term Goals Short Term Goals Time Frame: Apr 19, 2021 Roll Left & Right: 6 Sit to lyin Lying to sitting on side of be: 6 Sit to stand: 4 Chair/qdv-hf-qrcqc transfer: 4 (SBA) Walk 10 feet: 4 Walk 50 feet with two turns: 4 PT Residential Goals Chief Mate Goals PT Residential Goals Time Frame: May 03, 2021 Roll Left & Right (QC): 6 Sit to Lying (QC): 6 Lying-Sitting on Side/Bed(QC): 6 Sit to Stand (QC): 5 Chair/Rmh-eo-Zmata Xfer(QC): 5 Toilet Transfer (QC): 5 Car Transfer (QC): 5 Does the Patient Walk: Yes Walk 10 feet (QC): 5 Walk 50ft with 2 Turns (QC): 5 Walk 150 ft (QC): 88 Walking 10ft on Uneven Surface: 4 1 Step (curb) (QC): 4 4 Steps (QC): 4 12 Steps (QC): 88 Picking up an Object (QC): 5 Wheel 50 feet with 2 turns (QC: 6 Wheel 150 feet: 6 PT Plan Treatment/Plan Treatment Plan: Continue Plan of Care Treatment Plan: Bed Mobility, Education, Functional Activity Deniz, Functional Strength, Group Therapy, Gait, Safety, Therapeutic Exercise, Transfers Treatment Duration: May 03, 2021 Frequency: At least 5 of 7 days/Wk (IRF) Estimated Hrs Per Day: 1.5 hours per day Patient and/or Family Agrees t: Yes Safety Risks/Education Patient Education: Correct Positioning Time/GCodes Time In: 1400 Time Out: 1430 Total Billed Treatment Time: 30 Total Billed Treatment 1,EX30m...the above note and charges are late documentation for 04.16.2021 AWA Kruger LEE A PTA Apr 30, 2021 12:16
== END 2021-04-27 13:30 | disposition home health service (06) | DRG 559 ==
PROVIDERS: ADMIT Internal Medicine; ATTEND Internal Medicine
DX: Z47.81 Encounter for orthopedic aftercare following surgical amputation (principal); L89.153 Pressure ulcer of sacral region, stage 3; E11.52 Type 2 diabetes mellitus with diabetic peripheral angiopathy with gangrene; I70.262 Atherosclerosis of native arteries of extremities with gangrene, left leg; L98.498 Non-pressure chronic ulcer of skin of other sites with other specified severity; D62 Acute posthemorrhagic anemia; L76.22 Postprocedural hemorrhage of skin and subcutaneous tissue following other procedure; E11.42 Type 2 diabetes mellitus with diabetic polyneuropathy; I10 Essential (primary) hypertension; E78.00 Pure hypercholesterolemia, unspecified; I25.10 Atherosclerotic heart disease of native coronary artery without angina pectoris; D72.829 Elevated white blood cell count, unspecified; D50.9 Iron deficiency anemia, unspecified; E87.6 Hypokalemia; R09.89 Other specified symptoms and signs involving the circulatory and respiratory systems; S90.921A Unspecified superficial injury of right foot, initial encounter; B35.1 Tinea unguium; R19.7 Diarrhea, unspecified; I95.9 Hypotension, unspecified; L85.3 Xerosis cutis; Z89.612 Acquired absence of left leg above knee; Z87.891 Personal history of nicotine dependence; Z79.899 Other long term (current) drug therapy; Z79.84 Long term (current) use of oral hypoglycemic drugs; Z79.82 Long term (current) use of aspirin; Z23 Encounter for immunization; Z79.01 Long term (current) use of anticoagulants
CPT/HCPCS: 36410; 36415; 76937; 80053; 82607; 82947; 83540; 83735; 84145; 85007; 85025; 85027; 91301; 94640; 94760